=== PATIENT | female | born 1950 | race Caucasian/White ===

== ENCOUNTER 2019-07-18 09:44 | Outpatient (CLI) | payer OTHER, MEDICAID, SELFPAY ==
--- NOTE | 2019-07-18 | ECHO_ITS ---
Patient Info Name: Rosana Ritchie Age: 68 years : 1950 Gender: Female Ht: 59 in Wt: 140 lbs BSA: 1.65 m2 HR: 49 bpm BP: 148 / 54 mmHg Heart Rhythm: Sinus Rhythm Technical Quality: Good Exam Date: 07/18/2019 10:27 AM Exam Location: [facility] Patient Status: Outpatient Admit Date: 07/18/2019 Staff Ordering Physician: KatyaRyan MD Conservation Educator: Daisy Diallo RDCS Attending Provider: Katya, Ryan AVINA Exam Type: CA echo doppler color flow Study Info Indications - murmur Complete two-dimensional, color flow and Doppler transthoracic echocardiogram is performed. Summary 1. Left ventricular chamber dimension is normal. 2. Left ventricular systolic function is normal, estimated at 65-70%. 3. Left ventricular septal wall motion is normal. 4. The left ventricular diastolic function is grade I diastolic dysfunction. 5. There is mildly increased left ventricular wall thickness. 6. Left atrial chamber dimension is moderately enlarged. 7. There is mild aortic valve calcification. 8. There is mild to moderate aortic valve regurgitation. 9. There is mild mitral valve regurgitation. 10. There is mild tricuspid valve regurgitation. 11. Mild pulmonary hypertension, estimated pulmonary arterial systolic pressure is 37 mmHg. 12. There is mild pulmonic regurgitation. 13. 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 Left Ventricle Left ventricular chamber dimension is normal. Left ventricular systolic function is normal, estimated at 65-70%. There is mildly increased left ventricular wall thickness. Left ventricular septal wall motion is normal. The left ventricular diastolic function is grade I diastolic dysfunction. Right Ventricle Right ventricular chamber dimension is normal. Right ventricular systolic function is normal. Left Atria Left atrial chamber dimension is moderately enlarged. Right Atria Right atrial chamber dimension is mildly enlarged. Atrial Septum Patent foramen ovale visualized by color flow imaging. Aortic Valve The aortic valve is trileaflet. There is mild aortic valve sclerosis. There is no aortic valve stenosis. There is mild to moderate aortic valve regurgitation. There is mild aortic valve calcification. Pulmonic Valve The pulmonic valve is normal. There is no pulmonic valve stenosis. There is mild pulmonic regurgitation. Mitral Valve The mitral valve has thickened leaflets and calcified annulus. There is no mitral valve stenosis. There is mild mitral valve regurgitation. Tricuspid Valve The tricuspid valve leaflets are normal. There is no significant tricuspid valve stenosis. There is mild tricuspid valve regurgitation. Mild pulmonary hypertension, estimated pulmonary arterial systolic pressure is 37 mmHg. Other Findings Aneurysmal atrial septum with a bidirectional shunt noted consistent with PFO versus ASD. Pericardium/Pleural The pericardium appears normal. There is no pericardial effusion. Inferior Vena Cava Normal inferior vena cava with >50% collapse upon inspiration consistent with elevated right atrial pressure, 10 mmHg. Aorta The aortic root size at the sinus of Valsalva is normal. The prox ascending aorta size is normal. Left Ventricular Outflow Tract Name Value Normal
== END 2019-07-18 09:45 | disposition home or self-care (01) ==
PROVIDERS: Visit Provider Student in an Organized Health Care Education/Training Program
DX: I08.3 Combined rheumatic disorders of mitral, aortic and tricuspid valves (principal)
CPT/HCPCS: 93306

== ENCOUNTER → 2023-04-26 12:23 | Outpatient (CLI) | payer OTHER, MEDICAID, SELFPAY ==
--- NOTE | ~2023-04-26 | DEXA_ITS ---
Bone Density Report Name: ADILSON FRANK Age: 72 Sex: Female Ethnicity: White Date of : 1950 Indication: postmenopausal; screening for osteoporosis; Referring Provider: Katya, Ryan Study: Bone densitometry was performed. Exam Date: April 26, 2023 Accession number: [id number] Bone Density: Region BMD T-score Z-score Classification AP Spine (L1, L2) 1.104 1.1 3.4 Normal Femoral Neck (Left) 0.661 -1.7 0.4 Osteopenia Total Hip (Left) 0.763 -1.5 0.3 Osteopenia Femoral Neck (Right) 0.672 -1.6 0.5 Osteopenia Total Hip (Right) 0.805 -1.1 0.6 Osteopenia Total Hip Mean 0.784 -1.3 0.5 Osteopenia World Health Organization criteria for BMD impression classify patients as: Normal (T-score at or above -1.0), Osteopenia (T-score between -1.0 and -2.5), or Osteoporosis (T-score at or below -2.5). 10-year Fracture Risk(1): Major Osteoporotic Fracture 11% Hip Fracture 2.1% Reported Risk Factors: [place] (), Neck BMD=0.661, BMI=34.4 (1) FRAX(R) Version 3.08. Fracture probability calculated for an untreated patient. Fracture probability may be lower if the patient has received treatment. Clinical Information Provided by Patient: Menopause Age: 48 Does not regularly consume dairy products Onset of menses at age 13 Number of children 0 Impression: The patient has low bone mass, based on the Left Femoral Neck T-score. The patient has an estimated ten-year risk of hip fracture of 2.1% and an estimated ten-year risk of major fracture of 11%, based on the WHO FRAX algorithm. Discussion: BONE DENSITY IS LOW AT ONE OR MORE SKELETAL SITES. This patient's lowest T-score is low at one or more skeletal sites. It meets the World Health Organization's (WHO) criteria for ?low bone mass? (T-score between -1.0 and -2.5). The patient's 10-year risk of fracture as calculated by FRAX is less than the threshold where pharmacological therapy is recommended by the National Osteoporosis Foundation (NOF). However, all treatment decisions require clinical judgment and consideration of individual patient factors, including patient preferences, comorbidities, previous drug use, risk factors not captured in the FRAX model (e.g., frailty, falls, vitamin D deficiency, increased bone turnover, interval significant decline in bone density) and possible under or overestimation of fracture risk by FRAX. The patient should follow a healthful lifestyle (good nutrition with adequate calcium and vitamin D, and appropriate weight-bearing exercise). Follow-Up: Consider repeating this study in 2 to 3 years to reassess this patient's status, or sooner if there is some new clinical indication. Reported by: CIRA on 04/26/2023 1:05:00 PM. Reviewed, dictated and finalized at
--- NOTE | ~2023-04-26 | MM_ITS ---
EXAMINATION: MM screening jannette BI w laurel HISTORY: Screening mammogram TECHNIQUE: Craniocaudal and mediolateral oblique 3-D tomosynthesis images were obtained and synthetic 2-D images were generated. CAD analysis was submitted and interpreted. COMPARISON: No prior mammogram is available for comparison at this institution. BREAST PARENCHYMAL COMPOSITION: There are scattered areas of fibroglandular density. FINDINGS: There is no evidence of suspicious mass, calcification, or architectural distortion to sugg est malignancy in either breast. IMPRESSION: 1. No mammographic evidence of malignancy. 2. Recommend routine screening mammography in one year. 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
== END ==
PROVIDERS: PCP Student in an Organized Health Care Education/Training Program; Visit Provider Student in an Organized Health Care Education/Training Program
DX: Z12.31 Encounter for screening mammogram for malignant neoplasm of breast (principal); Z78.0 Asymptomatic menopausal state; M85.852 Other specified disorders of bone density and structure, left thigh; M85.851 Other specified disorders of bone density and structure, right thigh
CPT/HCPCS: 77063; 77067; 77080

== ENCOUNTER 2024-08-13 10:40 | Emergency (ER) | payer OTHER, MEDICAID, SELFPAY ==
--- NOTE | ~2024-08-13 | CT_ITS ---
CT head without contrast Indication: Status post fall Technique: Serial scans were obtained through the brain without the administration of contrast. Dose reduction technique was used on this scan by utilizing automated exposure control and iterative recon struction technique. The dose-length product (DLP) was 605.33 mGy-cm. Findings: There is no evidence of intracranial hemorrhage, mass lesion, or acute infarct. The ventri cles and subarachnoid spaces are dilated, consistent with mild to moderate atrophy. Low attenuation regions are seen within the periventricular white matter bilaterally, likely representing changes fro m chronic microvascular ischemic disease. There is no evidence of edema, mass effect or midline shif t. The visualized paranasal sinuses and mastoid air cells are clear. Impression: No intracranial hemorrhage, mass, or acute infarct. Atrophy and chronic white matter changes, as above. Reviewed, dictated and finalized at location M. Impression: No intracranial hemorrhage, mass, or acute infarct. Atrophy and chronic white matter changes, as above.
--- NOTE | ~2024-08-13 | CT_ITS ---
Noncontrast CT scan of the cervical spine Technique: Multiple contiguous axial [address] images of the cervical spine were obtained and rec onstructed in 2D sagittal and coronal planes on the acquisition scanner. Dose reduction technique was used on this scan by utilizing automated exposure control, adjustment of the mA and/or kV according to patient size. The dose-length product (DLP) was 272.84 mGy-cm. Clinical History: Pain Findings: No fracture identified. 3 mm anterolisthesis of C3 over C4 present. 5 mm anterolisthesis of C4 over C5 present. There is advanced degenerative disc narrowing at C4-C5, C5-C6, and C6-C7. There is moderate degenerative change at C3-C4. There is fusion across the bilateral facet joints at C2-C3. There is severe right neural foraminal narrowing at C3-C4 with severe right facet arthropathy. There is mild right neural foraminal narrowing at C4-C5, right facet arthropathy. There is mild bilateral neural foraminal narrowing at C5-C6 and C6-C7. There is mild to moderate canal stenosis at C5-C6 and C6-C7. No prevertebral soft tissue swelling. Impression: No fracture. 3 mm anterolisthesis of C3 over C4. 5 mm anterolisthesis of C4-C5. Moderate to advanced degenerative spondylosis, as above. Reviewed, dictated and finalized at [facility]. Impression: No fracture. 3 mm anterolisthesis of C3 over C4. 5 mm anterolisthesis of C4-C5. Moderate to advanced degenerative spondylosis, as above.
[2024-08-13 11:11] VITALS: BP 149/62; PULSE 55; RESP 16; TEMP 36.6; O2SAT 100
--- OUTSIDE RECORDS SUMMARY | 2024-08-13 11:58 | XMS_ITS | CONTINUITY OF CARE DOCUMENT ---
Author Name oscar moore Address Unknown Organization [facility] Address [address] [place] [address] Phone [phone] Care Team Providers Care Building Cleaning Supervisor Name Role Phone Martin Head MD Unavailable [phone] Martin Head MD Unavailable [phone] INSURANCE PROVIDERS Payer name Policy type / Coverage type [place] [employer] party ID [employer] Other [id number]
--- OUTSIDE RECORDS SUMMARY | 2024-08-13 11:58 | XMS_ITS | Encounter Summary ---
Author Organization [facility] Address [facility] [place] [address] Care Team Providers Care Debeaker Name Role Phone Ryan Aldana DO Primary Care Provider + Tati Mathews RN Unavailable [phone] Encounter Details Date Type Department Care Team (Late Contact Info) Description 05/03/2023 GENERAL MEDICAL MERATEt Message Enc [facility] Family & Internal Medicine [facility] [address] [place] [address] Ryan Aldana DO [address] [place] [address] DEXA Results Social History Tobacco Use Types Packs/Day Years Used Date Smoking Tobacco: Never Passive Smoke Exposure: Never Smokeless Tobacco: Never Comments:na Alcohol Use Standard Drinks/Week Comments Never 0 (1 standard drink = 0.6 oz pur e alcohol) AUDIT-C Answer Date Recorded Frequency of Alcohol Consumption Never 05/31/2019 Average Number of Drinks Not on file 020 Frequency of Binge Drinking Not on file 05/04 PHQ-2 Answer Date Recorded Patient Health Questionnaire-2 Score 0 09/02/2022 Comments No Sex and Gender Information Value Date Recorded Sex Assigned at Female 11/21/2023 7:23 AM CDT Legal Sex Female 12:45 PM DUCO POLISHER Gender Identity Female 11/21/2023 7:23 AM CDT Sexual Orientation Straight 11/21/2023 7: 23 AM CDT documented as of this encounter Plan of Treatment Upcoming Encounters Date Type Department Care Team (Late st Contact Info) Description 09/21/2024 10:20 AM CDT Laboratory Only [facility] Family & Internal [facility] [address] [place] [address] Ryan Aldana DO [address] [place] [address] 09/27/2024 9:00 AM CDT Office Visit [facility] Family & Internal [facility] [address] [place] [address] Ryan Aldana, [address] [place] [address] documented as of this encounter Visit Diagnoses Not on filedocumented in this encounter Additional Health Concerns Infection Onset Date Last Indicated Resolved Time COVID-19 Rule Out 06/13/2024 06/13/2024 06/13/2024 9:10 PM DUCO POLISHER COVID-19 Rule Out 06/16/2024 06/16/2024 06/16/2024 9:49 PM DUCO POLISHER Assessment Noted Time PHQ-9 Depression Total Score: 0 05/31/19 11:03 AM DUCO POLISHER documented as of this encounter Care Teams Debeaker Relationship Specialty Start Date End Date Ryan Aldana DO [address] [place] [address] PCP - General FAMILY PRACTICE 05/31/19 Tati Mathews, RN [address] [place] [address] Neurosurgery Physician (Ambulatory) REGISTERED NURSE 06/15/2402/23 documented as of this encounter
--- OUTSIDE RECORDS SUMMARY | 2024-08-13 11:58 | XMS_ITS | Encounter Summary ---
Author Organization [facility] Address [facility] [place] [address] Care Team Providers Care Water Resource Manager Name Role Phone Ryan Aldana DO Primary Care Provider + Tati Mathews RN Unavailable [phone] Encounter Details Date Type Department Care Team (Late Contact Info) Description 04/28/2023 Men Rockt Message Enc [facility] Family & Internal Medicine [facility] [address] [place] [address] Ryan Aldana DO [address] [place] [address] Mammogram Results Social History Tobacco Use Types Packs/Day [...] AM CDT Legal Sex Female 12:45 PM MANGLE CATCHER Gender Identity Female 11/21/2023 7:23 AM CDT Sexual Orientation Straight 11/21/2023 7: 23 AM CDT documented as of this encounter Plan of Treatment Upcoming Encounters Date Type Department Care Team (Late st Contact Info) Description 09/21/2024 10:20 AM CDT Laboratory Only [facility] Family & Internal [facility] [address] [place] [address] Ryan Aldana DO [address] [place] [address] 09/27/2024 9:00 AM CDT Office Visit [facility] Family & Internal [facility] [address] [place] [address] Ryan Aldana, [address] [place] [address] documented as of this encounter Visit Diagnoses Not on filedocumented in this encounter Additional Health Concerns Infection Onset Date Last Indicated Resolved Time COVID-19 Rule Out 06/13/2024 06/13/2024 06/13/2024 9:10 PM MANGLE CATCHER COVID-19 Rule Out 06/16/2024 06/16/2024 06/16/2024 9:49 PM MANGLE CATCHER Assessment Noted Time PHQ-9 Depression Total Score: 0 05/31/19 11:03 AM MANGLE CATCHER documented as of this encounter Care Teams Water Resource Manager Relationship Specialty Start Date End Date yRan Aldana DO [address] [place] [address] PCP - General FAMILY PRACTICE 05/31/19 Tati Mathews, RN [address] [place] [address] Recapper (Ambulatory) REGISTERED NURSE 06/15/2402/23 documented as of this encounter
--- OUTSIDE RECORDS SUMMARY | 2024-08-13 11:58 | XMS_ITS | Data Portability ---
Author Organization [facility] [employer], Main Office Address [address] [place] [address] Care Team Providers Care Commission Associate Name Role Phone NATALIA GONZALES Primary Care Provider Assessment Encounter Date Assessment Date Assessment LastModified by Organization Details LastModified Time 12/08/2023 12/08/2023 This note is dictated and transcribed by [employer]. Cardiovascular Surgical Tech variances may occur. Despite proofreading, typographical errors may occur. Occasional wrong-word or '[id number]' substitutions may have occurred due to the inherent limitations of voice recording. Read the chart carefully and recognize, using context, where substitutions have occurred. [email or web address] Not available 12/08/2023 11:27:57 Plan of Treatment Reminders Order Date Submit Date Provider Last Modified By Organization Details Last Modified Time Details Appointments None record ed. Lab None record ed. Referral None record ed. Procedures None record ed. Surgeries None record ed. Imaging None record ed. Medication Orders None record ed. Patient TargetsNo targets recorded. Patient InstructionsNo instructions recorded. Reason for Referral None Reported. Problems Name Problem SNOMED Code Status Onset Date Resolution Date Notes Provider Name and Address Organization Details Recorded Time Benign essentia l hyperten leeanne 1372795 Active Not Available [employer] 3 12:46:49 Wrist joint pain 400312433 Active Not Available [employer] 3 12:46:49 Intellec tual function ing disabili ty 040833440 Active Not Available [employer] 3 12:46:49 Osteoart hritis of knee 193123754 Active Not Available [employer] 3 12:46:49 Abnormal weight loss 812857152 Completed Not Available [employer] 3 12:46:50 Anemia 702164308 Active Not Available [employer] 3 12:46:50 Low back pain 440254361 Completed 201612/21/2017 Not Available On license of [facility] 3 12:46:50 Knee pain Active Not Available On license of [facility] 3 12:46:50 Vitamin D deficien cy 41208429 Active Not Available [facility] 3 12:46:50 Depressi ve disorder 94847614 Active Not Available On license of [facility] 3 12:46:50 Osteoart hritis 066058583 Active Not Available On license of [facility] 3 12:46:50 Obesity 858706000 Active Not Available On license of [facility] 3 12:46:50 Unexplai john weight loss 557961688 Completed 201612/21/2017 Not Available On license of [facility] 3 12:46:50 Amnesia 99260658 Active Not Available On license of [facility] 3 12:46:50 Anxiety 51418106 Active Not Available On license of [facility] 3 12:46:50 Vitamin K deficien cy 37188990 Active Not Available On license of [facility] 3 12:46:50 Hyperlip idemia 14638828 Active 2017 Not Available On license of [facility] 3 12:46:50 Diabetes mellitus 72477121 Active diet controll ed Not Available [facility] 3 12:46:51 Arthriti s 0774776 Active 2023 Clarisse [place], [place] [employer] [facility] [employer] 4 11:08:28 Onychomy cosis of toenails 228250220 Active 2023 Gerry Pryor DPM [address], [address], [place], [address] , [employer] 4 11:28:05 Unable to cut own toenails 693206958 Active 2023 Gerry Pryor DPM [address], [address], [place], [address] , [employer] 4 11:28:57 Problem Notes None recorded. Procedures Surgical History Date Name Laterality Status Provider Name and Address Organization Details Recorded Time 12/08/19 Nail Debridement completed Gerry Pryor DPM [address], [address], [place], [address], [facility] [employer] 12/08/2023 11:26:39 Cholecystectomy completed Debra Mark MA [facility] [employer] [facility] 12/07/2023 16:08:40 Tonsillectomy completed Debra Mark MA [facility] [employer] 12/07/2023 16:08:53 Total knee arthroplasty completed Debra Mark MA [facility] [employer] [facility] 12/07/2023 16:09:32 Imaging Results None recorded. Procedure Notes None recorded. Medical Equipment None Reported. Allergies No known drug allergies Medications Name Sig Start Date Stop Date Status Note LastModified by Organization Details LastModified Time celecoxib 200 mg capsule 08/19 completed Not Available Not Available Not Available bupropion HCl SR 150 mg tablet,12 hr sustained-r elease active Not Available Not Available Not Available naproxen 375 mg tablet TAKE 1 TABLET BY MOUTH TWICE A DAY WITH FOOD active Not Available Not Available No t Available donepezil 5 mg tablet TAKE 1 TABLET BY MOUTH EVERYDAY AT BEDTIME active Not Available Not Available No t Available oxybutynin chloride ER 10 mg tablet,exte nded release 24 hr TAKE 1 TABLET BY MOUTH EVERY DAY 03/02 completed Not Available Not Available Not Available azithromyci n 250 mg tablet active Not Available Not Available Not Available lisinopril 20 mg tablet Take 1 tablet every day by oral route for 30 days. 04/05 completed Not Available Not Available Not Available sertraline 100 mg tablet TAKE ONE TABLET BY MOUTH ONE TIME DAILY 03/02 completed Not Available Not Available Not Available penicillin V potassium 500 mg tablet 12/21 completed Not Available Not Available Not Available tramadol 50 mg tablet active Not Available Not Available No t Available amoxicillin 500 mg tablet Take 1 tablet 3 times a day by oral route for 7 days. 10/25 completed Not Available Not Available Not Available oxycodone-a cetaminophe n 5 mg-325 mg tablet 06/01 completed Not Available Not Available Not Available pantoprazol e 40 mg tablet,maida yed release TAKE 1 TABLET BY MOUTH EVERY DAY active Not Available Not Available No t Available lisinopril 20 mg-hydrochl orothiazide 25 mg tablet Take 1 tablet every day by oral route. 08/23 completed Not Available Not Available Not Available diclofenac sodium 75 mg tablet,maida yed release TAKE ONE TABLET BY MOUTH EVERY TWELVE HOURS 03/02 completed Not Available Not Available Not Available lisinopril 10 mg-hydrochl orothiazide 12.5 mg tablet TAKE 1 TABLET BY MOUTH EVERY DAY active Not Available Not Available No t Available Vitamin D2 1,250 mcg (50,000 unit) capsule Take 1 capsule every week by oral route for 90 days. 09/27 completed Not Available Not Available Not Available escitalopra m 20 mg tablet TAKE 1 TABLET BY MOUTH EVERY DAY active Not Available Not Available No t Available moxifloxaci n 0.5 % eye drops 08/23 completed Not Available Not Available Not Available rosuvastati n 20 mg tablet TAKE 1 TABLET BY MOUTH EVERY DAY active Not Available Not Available No t Available Crestor 10 mg tablet TAKE ONE TABLET BY MOUTH DAILY active Not Available Not Available No t Available bupropion HCl XL 150 mg 24 hr tablet, extended release TAKE ONE TABLET BY MOUTH ONE TIME DAILY 03/02 completed Not Available Not Available Not Available Lipitor active Not Available Not Avail able Not Available aripiprazol e 2 mg tablet active Not Available Not Available Not Available Durezol 0.05 % eye drops 08/23 completed Not Available Not Available Not Available GaviLyte-N 420 gram oral solution active Not Available Not Available Not Available Myrbetriq 25 mg tablet,exte nded release active Not Available Not Available Not Available Ilevro 0.3 % eye drops,suspe nsion 08/23 completed Not Available Not Available Not Available Shingrix (PF) 50 mcg/0.5 mL intramuscul ar suspension, kit 12/21 completed Not Available Not Available Not Available Vitals Date Recorded Body height Body mass index (BMI) Provider Name and Address Organization Details Last Updated DateTime 12/08/2023 144.78 cm 35.3 kg/m2 Clarisse [facility] 12/08/2023 11:07:43 Date Recorded Body weight Heart rate Respiratory rate Body temperature Oxygen saturation Oxygen saturation in Arterial blood by Pulse oximetry Provider Name and Address Organization Details Last Updated DateTime 4 71424.5 6 g 76 /min 14 /min 98.6 [degF] 98 % 98 % Debra Mark MA [employer] [facility] [employer] 11:04:36 Social History Question Answer Notes LastModified by Organizat ion Details LastModified Time Tobacco Smoking Status Never Smoker Debra Mark MA null, [facility] [employer] 12/07/2023 16:13:06 What Is Your Level Of Alcohol Consumption? None [place] [address] Information not available 12/07/2023 What Is Your Level Of Caffeine Consumption? Occasional [employer] Information not available 12/07/2023 Are You Currently Employed? No [place] [address] Information not available 12/07/2023 What Is Your Occupation? N/a [id number] Information not available 06/30/2022 Are There Any Guns Present In Your Home? No [employer] Information not available 12/07/2023 What Is Your Relationship Status? [employer] Information not available 12/07/2023 Do You Use Your Seat Belt Or Car Seat Routinely? Yes [employer] Information not available 12/08/2023 Are You Passively Exposed To Smoke? No [place] [address] Information no t available 12/07/2023 Do You Use Any Illicit Or Recreational Drugs? No [employer] Information not available 12/07/2023 Do You Use Sunscreen Routinely? No [employer] Information not available 12/07/2023 Sex: Unknown Functional Status None recorded. Mental Status None recorded. Family History Relationship Description Onset Age of this Age Resolved Age Notes LastModified by Organization Details LastModified Time Mother Alzheimer's disease [email or web address] Not available 2023 16:09:45 Father Alzheimer's disease [email or web address] Not available 2023 16:09:55 Father Heart disease [email or web address] Not available 2023 16:11:21 Maternal Grandmother Alzheimer's disease [email or web address] Not available 2023 16:10:06 Paternal Grandfather Heart disease [email or web address] Not available 2023 16:11:21 Brother Malignant tumor of prostate [email or web address] Not available 2023 16:12:12 Brother Diabetes mellitus [email or web address] Not available 2023 11:09:00 Sister Diabetes mellitus [email or web address] Not available 2023 11:09:00 Sister Hypertensive disorder [email or web address] Not available 2023 11:09:46 Sister Family history of malignant neoplasm [email or web address] Not available 2023 11:09:56 Unspecified Relation Cerebrovascu lar accident NEPHEW [email or web address] Not available 12/2023 11:09:17 Unspecified Relation Arthritis ALL [email or web address] Not available 024 11:09:31 Medical History Condition Response ARTHRITIS Y ANXIETY DISORDER Y DEPRESSION (INCLUDING POST ) Y HYPERTENSION Y HIGH CHOLESTEROL / HYPERLIPIDEMIA Y Gynecological HistoryNo gynecological history recorded. Obstetrics History GPAL:G 0 P 0 0 0 0 Immunizations Vaccine Type Date Status Note Provider Nam e and Address Organization Details Recorded Time Influenza, high-dose, trivalent, PF 1 completed Not Available On license of [facility] 06/30/2022 12:49:41 Influenza, high-dose, trivalent, PF 0 completed Not Available [facility] 06/30/2022 12:49:41 pneumococcal polysaccharide PPV23 9 completed Not Available [facility] 06/30/2022 12:49:41 zoster live 8 completed Not Available [facility] 06/30/2022 12:49:41 Influenza, high-dose, trivalent, PF 9 completed Not Available [facility] 06/30/2022 12:49:41 Td (adult) 5 completed Not Available [facility] 06/30/2022 12:49:42 Pneumococcal conjugate PCV 13 7 completed Not Available [facility] 06/30/2022 12:49:42 Influenza, high-dose, trivalent, PF 7 completed Not Available [facility] 06/30/2022 12:49:42 Influenza, high-dose, trivalent, PF 6 completed Not Available [facility] 06/30/2022 12:49:42 Influenza, split virus, trivalent, PF 4 completed Not Available [facility] 06/30/2022 12:49:42 Past Encounters Encounter ID Performer Location Encounter Start Date Encounter Closed Date Diagnosis/Indication Diagnosis SNOMED-CT Code Diagnosis ICD10 Code Diagnosis Note [id number] Gerry Pryor DPM [facility] [place] [address] [place] [address] 12/08/2023 10:42:50 12/09/2023 09:13:20 Diabetes mellitus 20911261 E11.9 continue diabetic control per PCP recommenda tionsConti nue supportive shoe gearMonito r feet daily for wounds infectionF ollow-up in 3 months for diabetic foot care Onychomyco sis of toenails 468977640 B35.1 Patient was educated on treatment options of onychomyco sis. Patient's nails 1 through 10 were debrided without incident. Patient defers pharmacolo gical management due to possible side effects and will continue with conservati ve options. Return to clinic as needed every 3 months for this problem. Unable to cut own toenails 549988776 Z74.1 secondary to intellectu al disability Health Concerns Section Related Observation LastModified by Organization Detai ls LastModified Time None Recorded Concern Status LastModified by Organization Details LastModified Time None Recorded Advance Directives Directive None Recorded Payers Encounter Date Sequence Insurance Name Policy Number Policy Ashton Covered Member ID Ashton Member ID Guarantor Name 12/08/2023 1 [place] WHEN MEDICARE OR MEDICARE REPLACEMENT PRIMARY) Rosana Ritchie [id number] Rosana Ritchie 12/08/2023 1 [facility] (MEDICARE REPLACEMENT/AD VANTAGE - HMO) [id number] Rosana Ritchie [id number] Rosana Ritchie Notes Date Note Type Note Provider Name and Address Organization Details Recorded Time 12/08/2023 text/html Patient is 73-year-old female who presents to the office for diabetic foot care and nail care. Patient has intellectual disability to which she is cared for by her sister and presents today with her sister. Patient sister states that she has developed thickened elongated dystrophic toenails which she is unable to care for. Patient denies any treatment for this condition. Patient denies any other complaints. Gerry Pryor DPM [address], [facility] [address], [place], [address], [facility] [employer] 12/08/2023 11:29:40 OBGyn Episode No OBEpisode recorded.
--- OUTSIDE RECORDS SUMMARY | 2024-08-13 11:58 | XMS_ITS | Encounter Summary ---
Author Organization [facility] Address [facility] [place] [address] Care Team Providers Care Customer Service Attendant Name Role Phone Ryan Aldana DO Primary Care Provider + Reason for Visit * Reason Onset Date Comments Information 08/13/2024 Encounter Details Date Type Department Care Team (Late st Contact Info) Description 08/13/2024 Telephone [facility] Family & Internal Medicine [facility] [address] [place] [address] Ryan Aldana DO [address] [place] [address] Information Social History Tobacco Use Types Packs/Day Years Used Date Smoking Tobacco: Never Passive Smoke Exposure: Never Smokeless Tobacco: Never Comments:na Alcohol Use Standard Drinks/Week Comments Never 0 (1 standard drink = 0.6 oz pur e alcohol) [facility] Utilities Answer Date Recorded In the past 12 months has [facility] [employer], gas, oil, or water [employer] threatened to shut off services in your home? No 06/14/2024 Humiliation, Afraid, Rape, and Kick questionnair e Answer Date Recorded Within the last year, have y ou been afraid of your partner or ex-partner? No 06/14/2024 Within the last year, have y ou been humiliated or emotionally abused in other ways by your partner or ex-partner? No Within the last year, have y ou been kicked, hit, slapped, or otherwise physically hurt by your partner or ex-partner? No 06/14/2024 Within the last year, have y ou been raped or forced to have any kind of sexual activity by your partner or ex-partner? No 06/14/2024 AUDIT-C Answer Date Recorded Frequency of Alcohol Consumption Never 05/31/2019 Average Number of Drinks Not on file 020 Frequency of Binge Drinking Not on file 05/04 Overall Financial Resource Strain (CARDIA) Answe r Date Recorded How hard is it for you to pa y for the very basics like food, housing, medical care, and heating? Not very hard 06/14/2024 PHQ-2 Answer Date Recorded Patient Health Questionnaire-2 Score 0 06/20/2023 Hunger Vital Sign Answer Date Recorded Within the past 12 months, y ou worried that your food would run out before you got the money to buy more. Never true 06/14/19 25 Within the past 12 months, t he food you bought just didn't last and you didn't have money to get more. Never true 06/14/2024 PRAPARE - Transportation Answer Date Re corded In the past 12 months, has l ack of transportation kept you from medical appointments or from getting medications? No 06/02 In the past 12 months, has l ack of transportation kept you from meetings, work, or from getting things needed for daily living? No 06/14/2024 Housing Stability Vital Sign Answer Taras e Recorded In the last 12 months, was t here a time when you were not able to pay the mortgage or rent on time? No 06/14/2024 In the past 12 months, how m any times have you moved where you were living? 0 06/14/2024 At any time in the past 12 m [facility], were you homeless or living in a care home (including now)? 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 Answer Date of Assessment Author Status No 06/19/2024 5:32 PM Chaz Escalona RN Active * Do you have serious difficulty walking or climbing stairs? Answer Date of Assessment Author Status Yes 06/19/2024 5:32 PM Chaz Escalona RN Active * Do you have difficulty dressing or bathing? Answer Date of Assessment Author Status No 06/19/2024 5:32 PM Chaz Escalona RN Active * Because of a physical, mental, or emotional condition, do you have difficulty doing errands alone such as visiting a doctor's office or shopping? Answer Date of Assessment Author Status No 06/19/2024 5:32 PM Chaz Escalona RN Active documented as of this encounter Mental Status * Because of a physical, mental, or emotional condition, do you have serious difficulty concentrating, remembering, or making decisions? Answer Entry Date Author Status Yes 06/19/2024 5:32 PM Chaz Escalona RN Active documented in this encounter Progress Notes * Teresa Seaman - 08/13/2024 9:44 AM CDT Pts sister called in stating fell 08/12/24 needed assistance to get back up. States pt fell at work today and hit her head. Patient is going to pick her up from work and take her to [facility].Wanted to inform PCP pt is falling again. documented in this encounter Plan of Treatment Upcoming Encounters Date Type Department Care Team (Late st Contact Info) Description 09/21/2024 10:20 AM CDT Laboratory Only [facility] Family & Internal Medicine [place] [address] [place] [address] Ryan Aldana, [facility] [place] [address] 09/27/2024 9:00 AM CDT Office Visit [facility] Family & Internal Medicine - [place] [address] [place] [address] [place] [address] [place] [id number] documented as of this encounter Visit Diagnoses Not on filedocumented in this encounter Additional Health Concerns Assessment Noted Time PHQ-9 Depression Total Score: 0 05/31/19 20 11:03 AM BOTTLE MACHINE OPERATOR documented as of this encounter Care Teams Customer Service Attendant Relationship Specialty Start Date End Date Ryan Aldana DO [address] [place] [phone] PCP - General FAMILY PRACTICE 05/31/19 documented as of this encounter
--- OUTSIDE RECORDS SUMMARY | 2024-08-13 11:59 | XMS_ITS | Clinical Summary ---
Author Organization [facility] Address Critical access hospital[address] [place] [address] Care Team Providers Care Fire Hydrant Operator Name Role Phone ShilpagtmelissaRyan Leonardo CONNER Primary Care Provider + Allergies Active Allergy Reactions Criticality Noted Date Comments Olanzapine Other (see comment) High 06/28/2024 Encephalopathy Medications rosuvastatin (CRESTOR) 20 MG tabletIndications: Hyperlipidemia, unspecified hyperlipidemia type TAKE 1 TABLET BY MOUTH EVERY DAY 90 tablet 06/06/19 25 Active Additional Information Patient taking differently: 20 mg Oral Daily, Reported on 06/28/2024 pantoprazole EC (PROTONIX) 40 MG tabletIndications: Acute gastritis without hemorrhage, unspecified gastritis type TAKE 1 TABLET BY MOUTH EVERY DAY 90 tablet 06/06/19 25 Active Additional Information Patient taking differently: 40 mg Oral Daily, Reported on 06/28/2024 escitalopram (LEXAPRO) 20 MG tabletIndications: Current mild episode of major depressive disorder, unspecified whether recurrent TAKE 1 TABLET BY MOUTH EVERY DAY 90 tablet 06/06/19 25 Active lisinopril-hydroCH LOROthiazide (ZESTORETIC) 10-12.5 MG tablet Take 1 tablet by mouth daily. Active Active Problems Problem Noted Date Diagnosed Date Physical deconditioning 06/23/2024 Encephalopathy 06/13/2024 Stress incontinence of urine 11/23/2023 Dementia with mood disturban ce, unspecified dementia severity, unspecified dementia type 07/02/2022 Current mild episode of brannon r depressive disorder, unspecified whether recurrent 11/19/2021 Falls frequently 06/12/2021 Vitamin D deficiency, unspecified 06/12/2021 Dizziness 06/10/2019 Arthritis 06/10/2019 Essential hypertension 06/10/2019 Depression, unspecified depression type 06/10/19 20 Prediabetes 06/10/2019 Cardiac murmur Resolved Problems Problem Noted Date Diagnosed Date Resolved Date Low vitamin D level 06/12/2021 06/12/19 22 Encounters Date Type Department Care Team Description 08/13/2024 Telephone [facility] Family Internal [address] [address] Ryan Aldana, DO Information 07/09/2024 Patient Outreach [facility] Internal [address] [address] Tati Mathews, [facility] Hospital Follow Up (Tcm #1) 07/01/2024 9:00 AM CULINARY ART TEACHER Home Care Visit [address] [place], [place] [id number] Elza Hendricks RN SN NON ADMIT SOC 06/28/2024 10:40 AM CULINARY ART TEACHER Office Visit [facility] & Internal [address] [address] Ryan Aldana, DO TCM ([facility] & [facility] rehab 06/19-06/26 ; physical deconditioning) 06/28/2024 Travel 06/27/2024 Scan [employer] INFO SRVCS Scanned, Doc [facility] 06/27/2024 Patient Outreach [facility] Internal [address] [address] Tati Mathews, RN TCM ([facility] 06/13-06/19, h swing bed 06/19-06/26/2024) 06/27/[address] [address] Ryan Aldana, DO Advice 06/26/[address] [place], [place] [phone] Ryan Aldana, DO Advise 06/26/2024 Telephone [facility] Home Care [address] [place] [address] [place] [address] Ryan Aldana, DO Advise 06/26/2024 Telephone [facility] & Internal [address] [place] [address] Ryan Aldana, DO Information 06/22/2024 Scan [employer] INFO SRVCS Scanned, [facility] 06/19/2024 5:19 PM CULINARY ART TEACHER - 06/26/2024 1:30 PM CULINARY ART TEACHER Hospital Encounter [facility] Med/Surg [id number] [place] [address] Silvina Ortiz MD Harris, Michael, MD Discharge Disposition: Home with Home Health Care 06/19/2024 Travel 06/19/2024 Telephone [facility] [address] [place] [address] Teresa Orozco, public safety teacher (Swing bed referral to [facility] from [facility]/) 06/18/2024 Telephone [facility] Family Internal [address] [place] [address] Ryan Aldana, DO Information 06/15/2024 Telephone [facility] Internal [address] [place] [address] Ryan Aldana, DO Information 06/15/2024 Patient Outreach [facility] & Internal [address] [place] [address] Tati Mathews, [facility]CIO Hospital Follow Up 06/13/2024 11:48 AM CULINARY ART TEACHER - 06/19/2024 3:57 PM CULINARY ART TEACHER Hospital Encounter [facility] [place] [address] Anand Monzon MD D'Souza, Dominique C, MD Spencer, Vincent J, MD Altered Mental Status Discharge Disposition: Swing Bed 06/13/2024 Scan [facility] INFO SRVCS Scanned, [facility] 06/13/2024 Travel 06/13/2024 Telephone [facility] & Internal Medicine [address] [address] Ryan Aldana, Advice 06/04/2024 9:40 AM CULINARY ART TEACHER Office Visit [facility] Internal [address] [address] Ryan Aldana, Hyperlipidemia; Depression 06/04/2024 Travel from Last 3 Months Immunizations Immunization Administration Dates Next Due Fluzone High Dose (IIV, triv alent, 0.5mL) 06/04/2024 Fluzone High Dose - >Age 65 (Prefilled Syringe) 02/25/2023,04/07/2020,04/05/2017,2015,04/15/2011,03/16/2010,01/16/2009 PFIZER COVID-19 (CRAMER CAP), MRNA, LNP-S, PF, 30 MCG/0.3 ML CLAIR-SUCROSE, IM 08/02/2021 Pneumococcal (Pneumovax 23) 04/07/2020 Pneumococcal (Prevnar 13) 04/05/2017 Shingrix 09/22/2017,06/25/2017 Td (Generic) 12/29/2004 Tdap (Generic) 05/23/2018 Zoster (Zostavax) [address] Unt/0.65Ml 09/26/2017 Family History Medical History Relation Comments Cancer Brother 3 remission Alzheimers Father Heart Attack Father Heart Disease Father Alzheimers Maternal Grandfather Alzheimers Mother Heart Attack Mother Heart Disease Paternal Grandfather Diabetes Sister 2 Heart Disease Sister 2 Depression Neg Hx Hypertension Neg Hx Relation Status Comments Brother 1 Alive Brother 2 Alive Brother 3 Alive Brother 4 Alive Father (Age 72) Maternal Grandfather Mother Paternal Grandfather Sister 1 Alive Sister 2 Alive Social History Tobacco Use Types Packs/Day Years Used Date Smoking Tobacco: Never Passive Smoke Exposure: Never Smokeless Tobacco: Never Tobacco Cessation:Counseling Given: No Comments:na Alcohol Use Standard Drinks/Week Comments Never 0 (1 standard drink = 0.6 oz pur e alcohol) [facility] Utilities Answer Date Recorded In the past 12 months has th e electric, gas, oil, or water company threatened to shut off services in your [...] any time in the past 12 m [facility], were you homeless or living in a long-term (including now)? No 06/14/2024 Comments No Sex and Gender Information Value Date Recorded Sex Assigned at Female 11/21/2023 7:23 AM CDT Legal Sex Female 12:45 PM CULINARY ART TEACHER Gender Identity Female 11/21/2023 7:23 AM CDT Sexual Orientation Straight 11/21/2023 7: 23 AM CDT Last Filed Vital Signs Vital Sign Reading Time Taken Comments Blood Pressure 134/62 06/28/2024 11:12 AM CULINARY ART TEACHER Pulse 46 06/28/2024 11:12 AM CULINARY ART TEACHER Temperature 36.8 C (98.2 F) 06/28/2024 11:12 AM CULINARY ART TEACHER Respiratory Rate 16 06/28/2024 11:12 AM CULINARY ART TEACHER Oxygen Saturation 99% 06/28/2024 11:12 AM CULINARY ART TEACHER Inhaled Oxygen Concentration - - Weight 64.7 kg (142 lb 9.6 oz) 06/28/2024 11:12 AM CULINARY ART TEACHER Height 147.3 cm (4' 10 ) 06/28/2024 11:12 AM CULINARY ART TEACHER Body Mass Index 29.8 06/28/2024 11:12 AM CULINARY ART TEACHER Plan of Treatment Upcoming Encounters Date Type Department Care Team (Late st Contact Info) Description 09/21/2024 10:20 AM CDT Laboratory Only [facility] Family & Internal Medicine [address] [phone] Ryan Aldana DO [address] [place] [address] 09/27/2024 9:00 AM CDT Office Visit [facility] Family & Internal Medicine [address] [address] Ryan Aldana DO [address] [place] [address] Health Maintenance Due Date Last Done Comments Annual Medicare Wellness Visit 2013 RSV Immunization or 60+ Years (1 - 1-dose 75+ series) 11/09/2023 PHQ-2 (Physician [place]) 05/02/2024 06/20/2023 Dexa Scan (General) 04/26/2025 04/26/2023, 09/30/2020 Colorectal Cancer Screening FIT-DNA (3 Years) 01/23/2026 01/23/2023, 01/23/2023, 08/09/2019 DTaP, Tdap and Td Vaccines ( 2 - Td or Tdap) 05/31/2028 05/23/2018, 12/29/2004 Postponed from 05/23/2028 (Per Provider Recommendation) COVID-19 Vaccine (2 - 2023-2 5 season) 2112 08/02/2021 Postponed from 12/31 (Going to Outside Clinic) Zoster Vaccines Completed 09/26/2017, 09/22/2017, 06/25/2017 Pneumococcal Vaccine: 50+ Years Completed 04/07/2020, 04/05/2017 Hepatitis C Completed 07/02/2022 Meningococcal B Vaccine Aged Out No l onger eligible based on patient's age to complete this topic Meningococcal Vaccine Aged Out No thomas brandee eligible based on patient's age to complete this topic RSV Immunizations Under 20 Months Aged Out No longer eligible b ased on patient's age to complete this topic Procedures Procedure Name Priority Date/Time Associated Diagnosis Comments POCT GLUCOSE - KILPATRICK DOCKED DEVICE Routine 06/26/2024 11:16 AM CULINARY ART TEACHER POCT GLUCOSE - KILPATRICK DOCKED DEVICE Routine 06/26/2024 7:29 AM CULINARY ART TEACHER POCT GLUCOSE - KILPATRICK DOCKED DEVICE Routine 06/25/2024 8:10 PM CULINARY ART TEACHER POCT GLUCOSE - KILPATRICK DOCKED DEVICE Routine 06/25/2024 4:45 PM CULINARY ART TEACHER POCT GLUCOSE - KILPATRICK DOCKED DEVICE Routine 06/25/2024 11:23 AM CULINARY ART TEACHER POCT GLUCOSE - KILPATRICK DOCKED DEVICE Routine 06/25/2024 7:35 AM CULINARY ART TEACHER POCT GLUCOSE - KILPATRICK DOCKED DEVICE Routine 06/24/2024 7:53 PM CULINARY ART TEACHER POCT GLUCOSE - KILPATRICK DOCKED DEVICE Routine 06/24/2024 4:55 PM CULINARY ART TEACHER POCT GLUCOSE - KILPATRICK DOCKED DEVICE Routine 06/24/2024 11:40 AM CULINARY ART TEACHER POCT GLUCOSE - KILPATRICK DOCKED DEVICE Routine 06/24/2024 7:01 AM CULINARY ART TEACHER POCT GLUCOSE - KILPATRICK DOCKED DEVICE Routine 06/23/2024 8:54 PM CULINARY ART TEACHER POCT GLUCOSE - KILPATRICK DOCKED DEVICE Routine 06/23/2024 4:34 PM CULINARY ART TEACHER POCT GLUCOSE - KILPATRICK DOCKED DEVICE Routine 06/23/2024 11:35 AM CULINARY ART TEACHER POCT GLUCOSE - KILPATRICK DOCKED DEVICE Routine 06/23/2024 8:06 AM CULINARY ART TEACHER POCT GLUCOSE - KILPATRICK DOCKED DEVICE Routine 06/22/2024 4:45 PM CULINARY ART TEACHER POCT GLUCOSE - KILPATRICK DOCKED DEVICE Routine 06/22/2024 11:24 AM CULINARY ART TEACHER POCT GLUCOSE - KILPATRICK DOCKED DEVICE Routine 06/22/2024 7:32 AM CULINARY ART TEACHER POCT GLUCOSE - KILPATRICK DOCKED DEVICE Routine 06/21/2024 4:16 PM CULINARY ART TEACHER POCT GLUCOSE - KILPATRICK DOCKED DEVICE Routine 06/21/2024 11:36 AM CULINARY ART TEACHER POCT GLUCOSE - KILPATRICK DOCKED DEVICE Routine 06/21/2024 7:52 AM CULINARY ART TEACHER COMPREHENSIVE METABOLIC PANEL Routine 06/21/2024 5:31 AM CULINARY ART TEACHER CBC W/DIFF AUTOMATED Routine 06/21/2024 5:31 AM CULINARY ART TEACHER POCT GLUCOSE - KILPATRICK DOCKED DEVICE Routine 06/20/2024 11:32 AM CULINARY ART TEACHER POCT GLUCOSE - KILPATRICK DOCKED DEVICE Routine 06/20/2024 7:16 AM CULINARY ART TEACHER COMPREHENSIVE METABOLIC PANEL Routine 06/20/2024 6:12 AM CULINARY ART TEACHER CBC W/DIFF AUTOMATED Routine 06/20/2024 6:12 AM CULINARY ART TEACHER POCT GLUCOSE - KILPATRICK DOCKED DEVICE Routine 06/19/2024 7:48 PM CULINARY ART TEACHER POCT GLUCOSE - KILPATRICK DOCKED DEVICE Routine 06/19/2024 5:29 PM CULINARY ART TEACHER POCT GLUCOSE - KILPATRICK DOCKED DEVICE Routine 06/19/2024 11:22 AM CULINARY ART TEACHER COMPREHENSIVE METABOLIC PANEL Routine 06/19/2024 7:11 AM CULINARY ART TEACHER CBC W/DIFF AUTOMATED Routine 06/19/2024 7:11 AM CULINARY ART TEACHER POCT GLUCOSE - KILPATRICK DOCKED DEVICE Routine 06/19/2024 5:34 AM CULINARY ART TEACHER POCT GLUCOSE - KILPATRICK DOCKED DEVICE Routine 06/18/2024 3:19 PM CULINARY ART TEACHER POCT GLUCOSE - KILPATRICK DOCKED DEVICE Routine 06/18/2024 11:06 AM CULINARY ART TEACHER COMPREHENSIVE METABOLIC PANEL Routine 06/18/2024 6:55 AM CULINARY ART TEACHER CBC W/DIFF AUTOMATED Routine 06/18/2024 6:55 AM CULINARY ART TEACHER CK (CPK) Routine 06/18/2024 6:55 AM CULINARY ART TEACHER POCT GLUCOSE - KILPATRICK DOCKED DEVICE Routine 06/18/2024 5:23 AM CULINARY ART TEACHER POCT GLUCOSE - KILPATRICK DOCKED DEVICE Routine 06/17/2024 8:46 PM CULINARY ART TEACHER URINE BACTERIA CULTURE Routine 5:03 PM CULINARY ART TEACHER HC URINALYSIS AUTO W/O MICRO Routine 06/17/2024 5:03 PM CULINARY ART TEACHER XR CHEST PORTABLE Today 06/17/2024 4:2 0 PM CULINARY ART TEACHER POCT GLUCOSE - KILPATRICK DOCKED DEVICE Routine 06/17/2024 3:53 PM CULINARY ART TEACHER POCT GLUCOSE - KILPATRICK DOCKED DEVICE Routine 06/17/2024 12:02 PM CULINARY ART TEACHER COMPREHENSIVE METABOLIC PANEL Routine 06/17/2024 7:47 AM CULINARY ART TEACHER CBC W/DIFF AUTOMATED Routine 06/17/2024 7:47 AM CULINARY ART TEACHER CK (CPK) Routine 06/17/2024 7:47 AM CULINARY ART TEACHER POCT GLUCOSE - KILPATRICK DOCKED DEVICE Routine 06/17/2024 6:01 AM CULINARY ART TEACHER POCT GLUCOSE - KILPATRICK DOCKED DEVICE Routine 06/16/2024 8:58 PM CULINARY ART TEACHER CORONAVIRUS (COVID 19) Routine 8:35 PM CULINARY ART TEACHER INFLUENZA A & B Routine 06/16/2024 8:35 PM CULINARY ART TEACHER POCT GLUCOSE - KILPATRICK DOCKED DEVICE Routine 06/16/2024 4:57 PM CULINARY ART TEACHER POCT GLUCOSE - KILPATRICK DOCKED DEVICE Routine 06/16/2024 12:00 PM CULINARY ART TEACHER CK (CPK) Routine 06/16/2024 7:48 AM CULINARY ART TEACHER CBC W/DIFF AUTOMATED Routine 06/16/2024 7:48 AM CULINARY ART TEACHER COMPREHENSIVE METABOLIC PANEL Routine 06/16/2024 7:48 AM CULINARY ART TEACHER POCT GLUCOSE - KILPATRICK DOCKED DEVICE Routine 06/16/2024 6:20 AM CULINARY ART TEACHER POCT GLUCOSE - KILPATRICK DOCKED DEVICE Routine 06/15/2024 8:36 PM CULINARY ART TEACHER POCT GLUCOSE - KILPATRICK DOCKED DEVICE Routine 06/15/2024 2:54 PM CULINARY ART TEACHER IR LUMB PUNCTURE DIAGNOSTIC Today 06/15/2024 2:23 PM CULINARY ART TEACHER SYPHILIS RPR VDRL CSF STAT 06/15/2024 1:15 PM CULINARY ART TEACHER CULTURE, CSF W/ GRAM STAIN STAT 06/15/2024 1:15 PM CULINARY ART TEACHER MENINGITIS/ENCEPHALITIS PANEL CSF STAT 06/15/2024 1:15 PM CULINARY ART TEACHER CELL COUNT, CSF Routine 06/15/2024 1:15 PM CULINARY ART TEACHER GLUCOSE CSF STAT 06/15/2024 1:15 PM CULINARY ART TEACHER PROTEIN TOTAL CSF STAT 06/15/2024 1:1 5 PM CULINARY ART TEACHER HSV, TYPE 1&2 DNA, QN RT PCR STAT 06/15/2024 1:13 PM CULINARY ART TEACHER POCT GLUCOSE - KILPATRICK DOCKED DEVICE Routine 06/15/2024 10:53 AM CULINARY ART TEACHER PARTIAL THROMBOPLASTIN TIME,PTT Routine 06/15/2024 10:21 AM CULINARY ART TEACHER PROTHROMBIN TIME, VENOUS STAT 06/15/2024 10:21 AM CULINARY ART TEACHER CK (CPK) Routine 06/15/2024 8:37 AM CULINARY ART TEACHER CBC W/DIFF AUTOMATED Routine 06/15/2024 8:37 AM CULINARY ART TEACHER COMPREHENSIVE METABOLIC PANEL Routine 06/15/2024 8:37 AM CULINARY ART TEACHER CYTOLOGY GENERIC STAT 06/15/2024 12:0 0 AM CULINARY ART TEACHER XR CHEST PA+LAT TIMED 06/14/2024 7:16 AM CULINARY ART TEACHER PARTIAL THROMBOPLASTIN TIME,PTT STAT 06/14/2024 6:21 AM CULINARY ART TEACHER PROTHROMBIN TIME, VENOUS STAT 06/14/2024 6:21 AM CULINARY ART TEACHER CK (CPK) STAT 06/14/2024 6:21 AM CULINARY ART TEACHER COMPREHENSIVE METABOLIC PANEL STAT 06/14/2024 6:21 AM CULINARY ART TEACHER CBC W/DIFF AUTOMATED STAT 06/14/2024 6:21 AM CULINARY ART TEACHER EEG ROUTINE STAT 06/14/2024 6:04 AM CULINARY ART TEACHER MRI BRAIN WO CON STAT 06/13/2024 10:1 1 PM CULINARY ART TEACHER RESPIRATORY PCR PANEL 2 STAT 06/13/19 25 7:54 PM CULINARY ART TEACHER URINE BACTERIA CULTURE STAT 7:54 PM CULINARY ART TEACHER AMMONIA Routine 06/13/2024 7:54 PM CULINARY ART TEACHER POCT GLUCOSE - KILPATRICK DOCKED DEVICE Routine 06/13/2024 5:31 PM CULINARY ART TEACHER VITAMIN B-12 Routine 06/13/2024 5:09 PM CULINARY ART TEACHER TSH W/REFLEX Routine 06/13/2024 5:09 PM CULINARY ART TEACHER TROPONIN, QUANT STAT 06/13/2024 5:09 PM CULINARY ART TEACHER HC MYCOPLASMA AB-90 Routine 06/13/2024 5 :08 PM CULINARY ART TEACHER XR CHEST PORTABLE STAT 06/13/2024 5:0 6 PM CULINARY ART TEACHER BLOOD GAS, ARTERIAL LAB STAT 06/13/19 5:06 PM CULINARY ART TEACHER HC INFECT AGENT DETECT OPTICAL STAT 06/13/2024 4:34 PM CULINARY ART TEACHER LEGIONELLA AG URINE STAT 06/13/2024 4 :34 PM CULINARY ART TEACHER DRUG SCREEN RAPID STAT 06/13/2024 4:3 4 PM CULINARY ART TEACHER HC URINALYSIS AUTO W/O MICRO STAT 06/13/2024 4:34 PM CULINARY ART TEACHER ECG 12-LEAD Routine 06/13/2024 1:[address]UL[address]ARY ART [address]ER [address] CERV SPINE WO CON STAT 06/13/2024 1:47 PM CULINARY ART TEACHER CTA HEAD+NECK STAT 06/13/2024 1:[address]INARY ART [address]ACHER [address] HEAD WO CON STAT 06/13/2024 1:47 PM CULINARY ART TEACHER XR CHEST PORTABLE STAT 06/13/2024 12: 29 PM CULINARY ART TEACHER PROLACTIN Routine 06/13/2024 11:58 AM CULINARY ART TEACHER PROCALCITONIN (PCT) Routine 06/13/2024 1 1:58 AM CULINARY ART TEACHER PHOSPHORUS, INORGANIC PHOSPHATE Routine 06/13/2024 11:58 AM CULINARY ART TEACHER MAGNESIUM Routine 06/13/2024 11:58 AM CULINARY ART TEACHER CK (CPK) Routine 06/13/2024 11:58 AM CULINARY ART TEACHER PARTIAL THROMBOPLASTIN TIME,PTT STAT 06/13/2024 11:58 AM CULINARY ART TEACHER PROTHROMBIN TIME, VENOUS STAT 06/13/2024 11:58 AM CULINARY ART TEACHER TROPONIN, QUANT STAT 06/13/2024 11:58 AM CULINARY ART TEACHER COMPREHENSIVE METABOLIC PANEL STAT 06/13/2024 11:58 AM CULINARY ART TEACHER CBC W/DIFF AUTOMATED STAT 06/13/2024 11:58 AM CULINARY ART TEACHER POCT GLUCOSE - KILPATRICK DOCKED DEVICE Routine 06/13/2024 11:20 AM CULINARY ART TEACHER BONE DENSITY GENERIC (SCAN ORDER) 04/26/2023 COLOGUARD (EXACT SCIENCE) Routine 01/23/2023 2:41 PM CDT Screening for malignant neoplasm of colon HEPATITIS C ANTIBODY Routine 07/02/2022 1:43 PM CULINARY ART TEACHER Screening for lipid disorders Screening for endocrine, metabolic and immunity disorder Need for hepatitis C screening test Annual physical exam from Last 3 Months or Most Recently Relevant to Health Maintenance Results * POCT glucose (06/26/2024 11:16 AM CULINARY ART TEACHER) Only the most recent of42 resultswithin the time period is included. GLUCOSE POC 77 70 - 110 mg/dL 06/26/2024 11:31 AM CULINARY ART TEACHER [facility] 06/26/2024 11:1 6 AM CULINARY ART TEACHER Mode Miles MD POCT ORDERABLES - DEVICE Final Result [facility] [address] [place] [address], * (ABNORMAL) COMPREHENSIVE METABOLIC PANEL (06/21/2024 5:31 AM CULINARY ART TEACHER) Only the most recent of9 resultswithin the time period is included. GLUCOSE 103(H) 70 - 99 MG/DL 06/21/2024 6:11 AM CULINARY ART TEACHER [facility] BUN 18 7 - 18 MG/DL 06/21/2024 6:11 AM CULINARY ART TEACHER [facility] CREATININE S/P/B 0.76 0.55 - 1.02 MG/DL 06/21/2024 6:11 AM [facility] SODIUM S/P/B 142 136 - 145 MMOL/L 06/21/2024 6:11 AM [facility] POTASSIUM S/P/B 3.6 3.5 - 5.1 MMOL/L 06/21/2024 6:11 AM [facility] CHLORIDE S/P/B 103 100 - 108 MMOL/L 06/21/2024 6:11 AM [facility] CO2 30.4 21 - 32 MMOL/L 06/21/2024 6:11 AM [facility] CALCIUM S/P/B 8.8 8.5 - 10.1 MG/DL 06/21/2024 6:11 AM [facility] BILIRUBIN TOTAL S/P/B 0.5 0.2 - 1.2 MG/DL 06/21/2024 6:11 AM [facility] TOTAL PROTEIN S/P/B 6.6 6.4 - 8.2 G/DL 06/21/2024 6:11 AM [facility] ALBUMIN S/P/B 2.7(L) 3.4 - 5.0 G/DL 06/21/2024 6:11 AM [facility] AST 34 15 - 37 U/L 06/21/2024 6:11 AM [facility] ALT 52 14 - 55 U/L 06/21/2024 6:11 AM [facility] ALKALINE PHOSPHATASE S/P/B 53 50 - 136 U/L 06/21/2024 6:11 AM [facility] ANION GAP 8.6 5 - 15 MMOL/L 06/21/2024 6:11 AM [facility] BUN CREATININE RATIO 23.7 6 - 26 06/21/2024 6:11 AM [facility] A/G RATIO 0.7(L) 1.0 - 2.0 RATIO 06/21/2024 6:11 AM [facility] GFR ESTIMATE 82(L) >90 ML/MIN/1.7 3 M2 06/21/2024 6:11 AM [facility] Comment: NOTE: eGFR is not calculated for patients <18 years of age. This is an estimated GFR calculation using the new CKD EPI creatinine equation without race and so does not require a correction factor for race. This estimated GFR should not be used for calculating drug doses. 06/21/2024 5:31 AM CULINARY ART TEACHER Karo Cross MD LABORATORY Final Res ult [facility] [address] [place] [address], * (ABNORMAL) CBC W/DIFF AUTOMATED (06/21/2024 5:31 AM CULINARY ART TEACHER) Only the most recent of9 resultswithin the time period is included. WBC 7.39 4.4 - 11.0 x10'3/uL 06/21/2024 5:57 AM [facility] RBC 3.50(L) 4.50 - 5.10 x10'6/uL 06/21/2024 5:57 AM [facility] HGB 10.8(L) 12.3 - 15.3 G/DL 06/21/2024 5:57 AM [facility] HCT 32.6(L) 35.9 - 44.6 % 06/21/2024 5:57 AM [facility] MCV 93.1 80.0 - 96.0 FL 06/21/2024 5:57 AM [facility] MCH 30.9 25.3 - 30.9 PG 06/21/2024 5:57 AM [facility] MCHC 33.1 31.0 - 34.1 G/DL 06/21/2024 5:57 AM [facility] RDW 12.1(L) 12.4 - 15.1 % 06/21/2024 5:57 AM [facility] PLT 240 151 - 353 x10'3/uL 06/21/2024 5:57 AM [facility] MPV 9.3(L) 9.6 - 12.0 FL 06/21/2024 5:57 AM [facility] RBC MORPHOLOGY NORMAL 06/21/2024 5:57 AM [facility] PLT MORPH. NORMAL 06/21/2024 5:57 AM [facility] WBC MORPHOLOGY NORMAL 06/21/2024 5:57 AM [facility] LYMPHOCYTES % 20.3 15.8 - 45.0 % 06/21/2024 5:57 AM [facility] NEUTROPHILS % 66.8 42.1 - 71.9 % 06/21/2024 5:57 AM [facility] MONOCYTES % 10.0 5.7 - 12.5 % 06/21/2024 5:57 AM [facility] EOSINOPHILS 2.0 0.0 - 5.6 % 06/21/2024 5:57 AM [facility] BASOPHILS 0.5 0.0 - 1.3 % 06/21/2024 5:57 AM [facility] ABS. NEUTROPHILS 4.93 1.40 - 6.00 x10'3/uL 06/21/2024 5:57 AM [facility] IMMATURE GRANS % 0.4 0.0 - 0.5 % 06/21/2024 5:57 AM CULINARY ART TEACHER [facility] ABS. LYMPHOCYTES 1.50 0.80 - 4.70 x10'3/uL 06/21/2024 5:57 AM [employer] [facility] 06/21/2024 5:31 AM [employer] Karo Cross MD LABORATORY Final Res ult Performing Organization Address City/[facility]/ZIP Co de Phone Number [facility] [address] [place] [address], [place] [phone] * CK (CPK) (06/18/2024 6:55 AM [employer]) Only the most recent of6 resultswithin the time period is included. CPK 180 21 - 215 U/L 06/18/2024 8:00 [address] [employer] [facility] 06/18/2024 6:55 AM [employer] Papa Spencer MD LABORATORY Final Result Performing Organization Address City/[facility]/ZIP Co de Phone Number [facility] [address] [place] [address], [place] [phone] * (ABNORMAL) URINALYSIS (06/17/2024 5:03 PM [employer]) Only the most recent of2 resultswithin the time period is included. SPECIMEN TYPE URINE CLEAN CATCH 06/17/2024 5:35 [address] [employer] [facility] COLOR (U) YELLOW 06/17/2024 6:00 [address] [employer] [facility] TRANSPARENCY TURBID 06/17/2024 6:00 PM [employer] [facility] SPECIFIC GRAVITY (U) 1.013 1.001 - 1.030 06/17/2024 6:00 [address] [employer] [facility] U PH 7.0 5.0 - 9.0 06/17/2024 6:00 PM [facility] LEUKOCYTES (U) 500(A) NEGATIVE 06/17/2024 6:00 PM [facility] NITRITES NEGATIVE NEGATIVE 06/17/2024 6:00 PM [facility] PROTEIN RANDOM (U) 20 <30 MG/DL 06/17/2024 6:00 PM [facility] GLUCOSE (U) NORMAL NORMAL MG/DL 06/17/2024 6:00 PM [facility] KETONES MG/DL (U) NEGATIVE NEGATIVE MG/DL 06/17/2024 6:00 PM [facility] UROBILINOGEN 2.0(A) NORMAL MG/DL 06/17/2024 6:00 PM [facility] [facility] BILIRUBIN (U) NEGATIVE NEGATIVE MG/DL 06/17/2024 6:00 PM [facility] BLOOD (U) TRACE(A) NEGATIVE 06/17/2024 6:00 PM [facility] WBC/HPF 64(H) <6 /HPF 06/17/2024 6:00 PM [facility] RBC/HPF 3 <6 /HPF 06/17/2024 6:00 PM [facility] BACTERIA (U) RARE(A) NONE /HPF 06/17/2024 6:00 PM [facility] URINE SPECIMEN OBTAINED BY CLEAN CATCH PROCEDURE / Unknown 06/17/2024 5:03 PM CULINARY ART TEACHER us Papa Spencer MD URINE ORDERABLES Final Resul t [facility] [address] [place] [address], * (ABNORMAL) URINE BACTERIA CULTURE (06/17/2024 5:03 PM CULINARY ART TEACHER) Only the most recent of2 resultswithin the time period is included. SPEC DESCRIPTION URINE CLEAN CATCH 06/18/2024 8:37 AM CULINARY ART TEACHER [facility] SPECIAL REQUESTS NO SPECIAL REQUEST 06/18/2024 8:37 AM CULINARY ART TEACHER [facility] CULTURE RESULT >100,000 COL/ML STAPH. SPECIES NOT STAPH. AUREUS (A) 06/20/2024 8:27 AM CULINARY ART TEACHER [facility] URINE SPECIMEN OBTAINED BY CLEAN CATCH PROCEDURE / Unknown 06/17/2024 5:03 PM CULINARY ART TEACHER 06/18/2024 9:07 AM CULINARY ART TEACHER Narrative Organism Antibiotic Method Susceptibility Staph. species not staph. aureus NITROFURANTOIN GEE (V ITEK) <=16: Sensitive Staph. species not staph. aureus LEVOFLOXACIN GEE (VIT EK) <=0.12: Sensitive Staph. species not staph. aureus OXACILLIN GEE (VIT EK) <=0.25: Sensitive Staph. species not staph. aureus PENICILLIN G GEE (VIT EK) >=0.5: Resistant Staph. species not staph. aureus TRIMETH-SULFAMETH. UT C (VITEK) <=10: Sensitive Staph. species not staph. aureus TETRACYCLINE GEE (VIT EK) <=1: Sensitive Papa Spencer MD MICROBIOLOGY - GENERAL ORDER BRIANNA Final Result [facility] [address] [place] [address], * XR CHEST PORTABLE (06/17/2024 4:20 PM CULINARY ART TEACHER) Only the most recent of3 resultswithin the time period is included. Anatomical Region Laterality Modality Chest Radiographic Vonnie ging 06/17/2024 9:54 PM CULINARY ART TEACHER Narrative 06/17/2024 9:57 PM CULINARY ART TEACHER [address] [address] EXAM: XR CHEST PORTABLE DATE: 06/17/2024 1615 hours Comparison 06/14/2024 INDICATION: Fever, leukocytosis TECHNIQUE: One view FINDINGS: Normal heart and pulmonary vessel size. The lungs are clear. No pleural effusion. Normal appearance of the bones. Pression: Normal exam. Referred By: Interpreted By: Jerrell Palacios MD, 06/17/2024 9:54 PM Procedure Note Jerrell Palacios MD - 06/17/[address] [address] EXAM: XR CHEST PORTABLE DATE: 06/17/2024 1615 hours Comparison 06/14/2024 INDICATION: Fever, leukocytosis TECHNIQUE: One view FINDINGS: Normal heart and pulmonary vessel size. The lungs are clear.No pleural effusion. Normal appearance of the bones. Pression: Normal exam. Referred By: Interpreted By: Jerrell Palacios MD, 06/17/2024 9:54 PM Papa Spencer MD GENERAL IMAGING Final Result * CORONAVIRUS (COVID 19) (06/16/2024 8:35 PM CULINARY ART TEACHER) CORONAVIRUS SARS COV 2 RNA NEGATIVE NEGATIVE 06/16/2024 9:49 PM CULINARY ART TEACHER [facility] Comment: NEGATIVE RESULTS DO NOT RULE OUT COVID 19 AND SHOULD NOT BE USED THE SOLE BASIS FOR TREATMENT OR PATIENT MANAGEMENT DECISIONS, INCLUDING INFECTION CONTROL DECISIONS. NEGATIVE RESULTS SHOULD BE CONSIDERED IN THE CONTEXT OF A PATIENT'S RECENT EXPOSURES, HISTORY AND THE PRESENCE OF CLINICAL SIGNS AND SYMPTOMS CONSISTENT WITH COVID 19. THE ID NOW COVID-19 2.0 TEST HAS BEEN AUTHORIZED BY THE FDA UNDER EAU FOR USE BY AUTHORIZED LABORATORIES. PERFORMED BY NUCLEIC ACID AMPLIFICATION FOR MOLECULAR QUALITATIVE DETECTION OF SARS-COV-2. SPECIMEN TYPE NASAL 06/16/2024 9:17 [address] CULINARY ART TEACHER [facility] NASAL STRUCTURE / Unknown 06/16/2024 8:35 PM CULINARY ART TEACHER Teresa Quiros MD MICROBIOLOGY - GENERAL O RDERABLES Final Result [facility] [address] [place] [address], [place] [phone] * INFLUENZA A & B, RAPID (06/16/2024 8:35 PM CULINARY ART TEACHER) SPECIMEN TYPE NASAL 06/16/2024 9:23 [address] CULINARY ART TEACHER [facility] INFLUENZA A NEGATIVE NEGATIVE 06/16/2024 9:49 PM CULINARY ART TEACHER [facility] INFLUENZA B NEGATIVE NEGATIVE 06/16/2024 9:49 [address] CULINARY ART TEACHER [facility] Comment: Interpretation: Negative for Influenza A and B. A negative result does not exclude influenza virus infection. If influenza is circulating in your community, a diagnosis of influenza should be considered based on a patient's clinical presentation and empiric antiviral treatment should be considered, if indicated. If more conclusive testing is needed for hospitalized inpatients, follow-up confirmatory testing with RT-PCR requires a separate order. NASAL STRUCTURE / Unknown 06/16/2024 8:35 PM CULINARY ART TEACHER Teresa Quiros MD MICROBIOLOGY - GENERAL O RDERABLES Final Result Performing Organization Address City/[facility]/ZIP Co de Phone Number [facility] [address] [place] [address], [place] [phone] * IR LUMB PUNCTURE DIAGNOSTIC (06/15/2024 2:23 PM CULINARY ART TEACHER) Anatomical Region Laterality Modality Spine Interventional R adiology 06/15/2024 1:42 PM CULINARY ART TEACHER Impressions 06/15/2024 1:44 PM CULINARY ART TEACHER IMPRESSION: 1. Fluoroscopy guided lumbar puncture performed at the L3-L4 level. 2. Opening CSF pressure of 15.8 cm H2O measured. 3. Total 9 mL of CSF fluid collected and sent for testing. 4. No immediate complication Ordered By: PAPA SPENCER Interpreted By: Latrice Valverde MD, 06/15/2024 1:42 PM Narrative 06/15/2024 1:44 PM CULINARY ART TEACHER [address] [address] Procedure: IR Lumbar puncture diagnostic with imaging Exam Date/Time: 06/15/2024 11:55 PM Indication: 73 female presenting for image guided lumbar puncture for CSF fluid collection for analysis; history of developmental delay and other multiple chronic medical issues presenting with increasing falls over one week. Concern for encephalopathy/encephalitis, stroke. Comparison: MRI brain 06/13/2024 Procedure technique and findings: Informed verbal and written consent was obtained with patient/patient's medical power of personal injury attorney. The procedure was discussed including the rationale, alternatives, benefits and risks. Timeout was performed Patient was positioned prone on the fluoroscopy procedure table. The L3-L4 interlaminar space was localized with fluoroscopy. Sterile technique including hand wash with soap and water, was employed for the procedure. The skin was prepped and draped. 1% lidocaine was administered for local anesthesia. A 22 gauge Tereza spinal needle was then advanced under fluoroscopic guidance into the thecal sac. Clear CSF fluid was returned. An opening CSF pressure of 15.8 cm H2O was measured. A total of 9 mL clear cerebrospinal fluid was collected and distributed amongst 4 vials. No closing CSF pressure measured. The stylet was replaced and the needle removed. Patient remained asymptomatic and tolerated the procedure well. No immediate complication. General Farm Manager: Dr. Valverde Radiation dose Air Kerma: 39.3 mGy; 3 fluoroscopy images recorded Procedure Note Latrice Valverde MD - 02/14/2025 [facility] [address] [place], [place] [address] Procedure: IR Lumbar puncture diagnostic with imaging Exam Date/Time: 06/15/2024 11:55 PM Indication: 73 female presenting for image guided lumbar puncture for CSFfluid collection for analysis; history of developmental delay and othermultiple chronic medical issues presenting with increasing falls over oneweek. Concern for encephalopathy/encephalitis, stroke. Comparison: MRI brain 06/13/2024 Procedure technique and findings: Informed verbal and written consent was obtained with patient/patient'smedical power of personal injury attorney. The procedure was discussed including therationale, alternatives, benefits and risks. Timeout was performed Patient was positioned prone on the fluoroscopy procedure table. The L3-S6xkurklxjkeqj space was localized with fluoroscopy. Sterile technique including hand wash with soap and water, was employedfor the procedure. The skin was prepped and draped. 1% lidocaine wasadministered for local anesthesia. A 22 gauge Tereza spinal needle wasthen advanced under fluoroscopic guidance into the thecal sac. Clear CSFfluid was returned. An opening CSF pressure of 15.8 cm H2O was measured. A total of 9 mL clear cerebrospinal fluid was collected and distributedamongst 4 vials. No closing CSF pressure measured. The stylet was replaced and the needleremoved. Patient remained asymptomatic and tolerated the procedure well. Noimmediate complication. General Farm Manager: Dr. Valverde Radiation dose Air Kerma: 39.3 mGy; 3 fluoroscopy images recorded IMPRESSION: 1. Fluoroscopy guided lumbar puncture performed at the L3-L4 level. 2. Opening CSF pressure of 15.8 cm H2O measured. 3. Total 9 mL of CSF fluid collected and sent for testing. 4. No immediate complication Ordered By: PAPA SPENCER Interpreted By: Latrice Valverde MD, 06/15/2024 1:42 PM us Papa Spencer MD INTERVENTIONAL RADIOLOGY Fin al Result * CULTURE, CSF W/ GRAM STAIN (06/15/2024 1:15 PM CULINARY ART TEACHER) [facility] SPEC DESCRIPTION CSF, LUMBAR 06/15/2024 2:24 [address] CULINARY ART TEACHER [facility] SPECIAL REQUESTS NO SPECIAL REQUEST 06/15/2024 2:24 PM CULINARY ART TEACHER [facility] GRAM STAIN RESULT NO WHITE BLOOD CELLS SEEN 06/15/2024 4:08 PM CULINARY ART TEACHER [facility] GRAM STAIN RESULT NO ORGANISMS SEEN 06/15/2024 4:08 PM CULINARY ART TEACHER [facility] CULTURE RESULT NO GROWTH 5 DAYS 06/20/2024 8:44 AM CULINARY ART TEACHER [facility] CSF, LUMBAR 06/15/2024 1:15 PM CULINARY ART TEACHER 06/15/2024 2:37 PM CULINARY ART TEACHER Papa Spencer MD MICROBIOLOGY - GENERAL ORDER BRIANNA Final Result [facility] [address] [place] [address], * MENINGITIS/ENCEPHALITIS PANEL CSF (06/15/2024 1:15 PM CULINARY ART TEACHER) [facility] ESCHERICHIA COLI K1 PCR (CSF) NOT DETECTED NOT DETECTED 06/15/2024 7:32 PM CULINARY ART TEACHER [facility] H. INFLUENZAE PCR (CSF) NOT DETECTED NOT DETECTED 06/15/2024 7:32 PM CULINARY ART TEACHER [facility] LISTERIA MONOCYTOGENES PCR (CSF) NOT DETECTED NOT DETECTED 06/15/2024 7:32 PM CULINARY ART TEACHER [facility] N. MENINGITIDIS PCR (CSF) NOT DETECTED NOT DETECTED 06/15/2024 7:32 PM CULINARY ART TEACHER [facility] STREP AGALACTIAE PCR (CSF) NOT DETECTED NOT DETECTED 06/15/2024 7:32 PM CULINARY ART TEACHER [facility] STREP PNEUMONIAE PCR (CSF) NOT DETECTED NOT DETECTED 06/15/2024 7:32 PM CULINARY ART TEACHER [facility] CYTOMEGALOVIRUS PCR (CSF) NOT DETECTED NOT DETECTED 06/15/2024 7:32 PM CULINARY ART TEACHER [facility] ENTEROVIRUS PCR (CSF) NOT DETECTED NOT DETECTED 06/15/2024 7:32 PM CULINARY ART TEACHER [facility] HERPES SIMPLEX 1 PCR (CSF) NOT DETECTED NOT DETECTED 06/15/2024 7:32 PM CULINARY ART TEACHER [facility] HERPES SIMPLEX 2 PCR (CSF) NOT DETECTED NOT DETECTED 06/15/2024 7:32 PM CULINARY ART TEACHER [facility] HUMAN HERPESVIRUS 6 PCR (CSF) NOT DETECTED NOT DETECTED 06/15/2024 7:32 PM CULINARY ART TEACHER [facility] HUMAN PARECHOVIRUS PCR (CSF) NOT DETECTED NOT DETECTED 06/15/2024 7:32 PM CULINARY ART TEACHER [facility] VARICELLA ZOSTER PCR NOT DETECTED NOT DETECTED 06/15/2024 7:32 PM CULINARY ART TEACHER [facility] C NEOFORMANS/GATTII PCR (CSF) NOT DETECTED NOT DETECTED 06/15/2024 7:32 PM CULINARY ART TEACHER [facility] CSF, LUMBAR 06/15/2024 1:15 PM CULINARY ART TEACHER us Papa Spencer MD BODY FLUIDS AND STOOLS ORDER BRIANNA Final Result [facility] [address] [place] [address], [phone] * CELL COUNT, CSF (06/15/2024 1:15 PM CULINARY ART TEACHER) TUBE NUMBER 3 06/15/2024 3:47 [address] CULINARY ART TEACHER [facility] TOTAL VOLUME (CSF) 9.0 ML 06/15/2024 3:47 PM CULINARY ART TEACHER [facility] COLOR (CSF) COLORLESS 06/15/2024 3:47 PM CULINARY ART TEACHER [facility] CLARITY (CSF) CLEAR 06/15/2024 3:47 PM CULINARY ART TEACHER [facility] RBC (CSF) 118 CELLS/UL 06/15/2024 3:47 PM CULINARY ART TEACHER [facility] TOTAL NUCLEATED CELL (CSF) 5 0 - 5 CELLS/UL 06/15/2024 3:47 PM CULINARY ART TEACHER [facility] SEGS (CSF) 14 % 06/15/2024 3:47 [address] CULINARY ART TEACHER [facility] LYMPHS (CSF) 38 % 06/15/2024 3:47 [address] CULINARY ART TEACHER [facility] OTHER MONONUCLEAR CELLS (CSF) 48 % 06/15/2024 3:47 PM CULINARY ART TEACHER [facility] Comment: THE FOLLOWING MAY INCLUDE MONOCYTE/MACROPHAGE,PLASMA CELL,MESOTHELIAL CELL,BRONCHIAL LINING CELL,SYNOVIAL LINING CELL,VENTRICULAR LINING CELL,ENDOTHELIAL CELL,SQUAMOUS EPITHELIAL AND OTHER CELLS. CSF, LUMBAR 06/15/2024 1:15 PM CULINARY ART TEACHER us Papa Spencer MD BODY FLUIDS AND STOOLS ORDER BRIANNA Final Result Performing Organization Address City/[facility]/ZIP Co de Phone Number [facility] [address] [place] [address], [place] [phone] * (ABNORMAL) GLUCOSE CSF (06/15/2024 1:15 PM CULINARY ART TEACHER) GLUCOSE (CSF) 71(H) 40 - 70 MG/DL 06/15/2024 2:50 [address] CULINARY ART TEACHER [facility] CEREBRAL SPINAL FLUID (CSF, LUMBAR) 06/15/2024 1:15 PM CULINARY ART TEACHER us Papa Spencer MD BODY FLUIDS AND STOOLS ORDER BRIANNA Final Result Performing Organization Address City/[facility]/ZIP Co de Phone Number [facility] [address] [place] [address], [place] [phone] * SYPHILIS RPR VDRL CSF (06/15/2024 1:15 PM CULINARY ART TEACHER) VDRL (CSF) Nonreactive Nonreactive 06/18/2024 2:07 PM CULINARY ART TEACHER [employer] [facility]ICKY [facility]ORNE Comment: Test Performed by Jani Marcial, [facility], [address] [place], [place] Hao Vincent M.D., Ph.D., Director of Laboratories , [place] [id number] CSF, LUMBAR 06/15/2024 1:15 PM CULINARY ART TEACHER Papa Spencer MD BODY FLUIDS AND STOOLS ORDER BRIANNA Final Result Performing Organization Address City/[facility]/ZIP Co de Phone Number [employer] [facility] [address] [place], [place] , [place] [phone] * (ABNORMAL) PROTEIN TOTAL CSF (06/15/2024 1:15 PM CULINARY ART TEACHER) Pathologist [facility] TOTAL PROTEIN (CSF) 66(H) 15 - 45 MG/DL 06/15/2024 2:50 [address] CULINARY ART TEACHER [facility] CEREBRAL SPINAL FLUID (CSF, LUMBAR) 06/15/2024 1:15 PM CULINARY ART TEACHER Papa Spencer MD BODY FLUIDS AND STOOLS ORDER BRIANNA Final Result [facility] [address] [place] [address], [place] [phone] * HSV, TYPE 1&2 DNA, QN RT PCR (06/15/2024 1:13 PM CULINARY ART TEACHER) Pathologist [facility] SPECIMEN SOURCE CEREBROSPINAL FLUID 06/15/2024 2:37 [address] CULINARY ART TEACHER [facility] HSV 1 DNA Not Detected <100 copies/ mL 06/18/2024 5:27 PM CULINARY ART TEACHER [employer] [facility] HSV 2 DNA Not Detected <100 copies/ mL 06/18/2024 5:27 PM CULINARY ART TEACHER [employer] [facility] Comment: Reference Range: Not Detected This test was developed and its analytical performance characteristics have been determined by [facility] [place], [place]. It has not been cleared or approved by the FDA. This assay has been validated pursuant to the CLIA regulations and is used for clinical purposes. Test Performed by [facility], [facility], [address] [place] [address] Hao Vincent M.D., Ph.D., Director of Laboratories , CLIA [id number] CSF, LUMBAR 06/15/2024 1:13 PM CULINARY ART TEACHER us Papa Spencer MD LABORATORY Final Result Performing Organization Address City/[facility]/ZIP Co de Phone Number [employer] [address] , [place] [phone] [facility] [address] [place] [address], [place] [phone] * PTT, PARTIAL THROMBOPLASTIN TIME (06/15/2024 10:21 AM CULINARY ART TEACHER) Only the most recent of3 resultswithin the time period is included. Pathologist [facility] PTT 28.4 25.1 - 36.5 SEC 06/15/2024 10:56 [address] CULINARY ART TEACHER [facility] 06/15/2024 10:2 1 AM CULINARY ART TEACHER us Papa Spencer MD LABORATORY Final Result [facility] [address] [place] [address], [place] [phone] * (ABNORMAL) PROTIME/INR, VENOUS (06/15/2024 10:21 AM CULINARY ART TEACHER) Only the most recent of3 resultswithin the time period is included. PROTIME 14.0(H) 10.2 - 12.9 SEC 06/15/2024 10:56 AM CULINARY ART TEACHER [facility] INR 1.2 06/15/2024 10:56 AM CULINARY ART TEACHER [facility] Comment: Recommended INR Therapeutic Goals: 2.0-3.0 Routine Therapy 2.5-3.5 Mechanical Prosthetic Valves (High Risk) 06/15/2024 10:2 1 AM CULINARY ART TEACHER us Papa Spencer MD LABORATORY Final Result [facility] [address] [place] [address], * CYTOLOGY GENERIC (06/15/2024 12:00 AM CULINARY ART TEACHER) CYTOLOGY OTHER [facility] Department of Laboratory Medicine [address] [place] [address] , extension [phone] Pathology Report Non-gynecologic Cytology Report Name: ROSANA RITCHIE Specimen #: [id number] Age: 7 1950 (Age: 73) Location: [facility] Sex: F Procedure Date: 06/15/2024 Hospital #: [id number] Date Received: 06/18/2024 Date Reported: 06/19/2024 Provider: PAPA MONZON MD Source: CEREBROSPINAL FLUID, LUMBAR PUNCTURE Clinical History: AMS FINAL DIAGNOSIS: Cerebrospinal fluid, lumbar puncture: -Satisfactory for evaluation. -Negative for malignant cells. -Scant blood present. Gross Description: SPECIMEN RECEIVED: 2 slides submitted from the Hematology department SLIDES PREPARED: 2 cytospins; all slides were microscopically examined by a pathologist. STAINS: Le Initial cytologic screening, interpretation, and sign out were performed at [facility], [address] [place] [address]. Electronically Signed Out SHAHRIAR OAKLEY MD [facility] CSF, LUMBAR 06/15/2024 06/18/2024 12 :37 PM CULINARY ART TEACHER Comment:CEREBROSPINAL FLUID, LUMBAR PUNCTURE Papa Spencer MD PATHOLOGY/CYTOLOGY ORDERABLE S Final Result [facility] [address] [place] [address], [phone] * XR CHEST PA+LAT (06/14/2024 7:16 AM CULINARY ART TEACHER) Anatomical Region Laterality Modality Chest Radiographic Vonnie ging 06/14/2024 7:37 AM CULINARY ART TEACHER Impressions 06/14/2024 7:40 AM CULINARY ART TEACHER IMPRESSION: 1. No acute findings. Previously seen questioned right perihilar airspace opacity is not appreciated on today's study. 2. Enteric tube with side port and distal tip projecting over the stomach. Referred By: Interpreted By: Herberth Charles MD, 06/14/2024 7:37 AM Narrative 06/14/2024 7:40 AM CULINARY ART TEACHER [address] [address] XR CHEST PA+LAT INDICATION: Abnormality on portable chest TECHNIQUE: PA and lateral views of the chest. COMPARISON: Chest radiograph 06/13/2024. FINDINGS: Endogastric tube side port projecting over the stomach, distal tip projecting over the peripatellar region. Additional overlying monitoring devices project over the chest. Cardiomediastinal silhouette is within normal limits. Atelectatic calcifications of the thoracic aorta. No pulmonary vascular congestion. No focal pulmonary consolidation. Previously seen right perihilar airspace opacity is not appreciated on today's study. No pleural effusions or pneumothorax. Diffuse osseous demineralization. Thoracic spondylosis. Right upper quadrant cholecystectomy clips. Procedure Note Herberth Charles MD - 06/14/2024 [facility] [address] [place], [place] [address] XR CHEST PA+LAT INDICATION: Abnormality on portable chest TECHNIQUE: PA and lateral views of the chest. COMPARISON: Chest radiograph 06/13/2024. FINDINGS: Endogastric tube side port projecting over the stomach, distal tipprojecting over the peripatellar region. Additional overlying monitoringdevices project over the chest. Cardiomediastinal silhouette is withinnormal limits. Atelectatic calcifications of the thoracic aorta. Nopulmonary vascular congestion. No focal pulmonary consolidation.Previously seen right perihilar airspace opacity is not appreciated ontoday's study. No pleural effusions or pneumothorax. Diffuse osseousdemineralization. Thoracic spondylosis. Right upper quadrantcholecystectomy clips. IMPRESSION: 1. No acute findings. Previously seen questioned right perihilarairspace opacity is not appreciated on today's study. 2. Enteric tube with side port and distal tip projecting over thestomach. Referred By: Interpreted By: Herberth Charles MD, 06/14/2024 7:37 AM [place] [employer] RELIEF WORKER GENERAL IMAGING Final Resul t * MRI BRAIN WO CON (06/13/2024 10:11 PM CULINARY ART TEACHER) Anatomical Region Laterality Modality Head Magnetic Resonan ce 06/13/2024 10:1 5 PM CULINARY ART TEACHER Impressions 06/13/2024 10:17 PM CULINARY ART TEACHER IMPRESSION: ===== 1. No convincing acute intracranial abnormality within limitations of motion artifact. 2. Atrophy and small vessel ischemic disease. Referred By: Interpreted By: Willam Dinh MD, 06/13/2024 10:15 PM Narrative 06/13/2024 10:17 [address] CULINARY ART TEACHER [facility] [address] [place], [place] [address] EXAMINATION: MRI brain without contrast. EXAM DATE/TIME: 06/13/2024 10:01 PM REASON FOR EXAM: ORDERING PROVIDER COMMENT: AMS, left sided symptoms Altered mental status. Increasing falls on Tuesday. Decreased mental awareness. Unable to speak. COMPARISON: Head CT 06/13/2024. Prior brain MRI from [facility]. TECHNIQUE: Multiplanar multisequence MRI of the brain was obtained without the use of IV contrast agent. FINDINGS: Motion artifact limited evaluation across multiple sequences. There is no convincing abnormal increased signal on diffusion-weighted imaging to suggest an acute infarct. Ventricles are enlarged with prominent bilateral sulci. Patchy and confluent areas of FLAIR signal abnormality are seen in the periventricular deep white matter distribution. No convincing intracranial hemorrhage. Bilateral lens extractions with grossly unremarkable orbital contents otherwise. Limited evaluation of paranasal sinuses. Mastoid air cells are grossly clear. The visualized portions of major intracranial arterial flow voids at the skull base are present. Sella and suprasellar regions unremarkable. No convincing abnormal signal in the cervical cord on T1 imaging. ===== Procedure Note Willam Dinh MD - 06/13/[address] [address] EXAMINATION: MRI brain without contrast. EXAM DATE/TIME: 06/13/2024 10:01 PM REASON FOR EXAM: ORDERING PROVIDER COMMENT: AMS, left sided symptoms Altered mental status. Increasing falls on Tuesday. Decreased mentalawareness. Unable to speak. COMPARISON: Head CT 06/13/2024. Prior brain MRI from [facility]. TECHNIQUE: Multiplanar multisequence MRI of the brain was obtained withoutthe use of IV contrast agent. FINDINGS: Motion artifact limited evaluation across multiple sequences.There is no convincing abnormal increased signal on diffusion-weightedimaging to suggest an acute infarct. Ventricles are enlarged withprominent bilateral sulci. Patchy and confluent areas of FLAIR signalabnormality are seen in the periventricular deep white matterdistribution. No convincing intracranial hemorrhage. Bilateral lensextractions with grossly unremarkable orbital contents otherwise. Limitedevaluation of paranasal sinuses. Mastoid air cells are grossly clear.The visualized portions of major intracranial arterial flow voids at theskull base are present. Sella and suprasellar regions unremarkable. Noconvincing abnormal signal in the cervical cord on T1 imaging. ===== IMPRESSION: ===== 1. No convincing acute intracranial abnormality within limitations ofmotion artifact. 2. Atrophy and small vessel ischemic disease. Referred By: Interpreted By: Willam Dinh MD, 06/13/2024 10:15 PM Alexandria Patricio SAWMILL RELIEF WORKER MRI Final Resul t * RESPIRATORY PCR PANEL 2 (06/13/2024 7:54 PM CULINARY ART TEACHER) ADENOVIRUS PCR (RESP) NOT DETECTED NOT DETECTED 06/13/2024 9:10 PM CULINARY ART TEACHER [facility] CORONAVIRUS 229E PCR (RESP) NOT DETECTED NOT DETECTED 06/13/2024 9:10 PM CULINARY ART TEACHER [facility] CORONAVIRUS HKU1 PCR (RESP) NOT DETECTED NOT DETECTED 06/13/2024 9:10 PM CULINARY ART TEACHER [facility] CORONAVIRUS NL63 PCR (RESP) NOT DETECTED NOT DETECTED 06/13/2024 9:10 PM CULINARY ART TEACHER [facility] CORONAVIRUS OC43 PCR (RESP) NOT DETECTED NOT DETECTED 06/13/2024 9:10 PM CULINARY ART TEACHER [facility] METAPNEUMOVIRUS PCR (RESP) NOT DETECTED NOT DETECTED 06/13/2024 9:10 PM CULINARY ART TEACHER [facility] RHINOVIRUS/ENTEROV IRUS PCR (RESP) NOT DETECTED NOT DETECTED 06/13/2024 9:10 PM CULINARY ART TEACHER [facility] INFLUENZA A PCR (RESP) NOT DETECTED NOT DETECTED 06/13/2024 9:10 PM CULINARY ART TEACHER [facility] INFLUENZA B PCR (RESP) NOT DETECTED NOT DETECTED 06/13/2024 9:10 PM CULINARY ART TEACHER [facility] PARAINFLUENZA 1 PCR (RESP) NOT DETECTED NOT DETECTED 06/13/2024 9:10 PM CULINARY ART TEACHER [facility] PARAINFLUENZA 2 PCR (RESP) NOT DETECTED NOT DETECTED 06/13/2024 9:10 PM CULINARY ART TEACHER [facility] PARAINFLUENZA 3 PCR (RESP) NOT DETECTED NOT DETECTED 06/13/2024 9:10 PM CULINARY ART TEACHER [facility] PARAINFLUENZA 4 PCR (RESP) NOT DETECTED NOT DETECTED 06/13/2024 9:10 PM CULINARY ART TEACHER [facility] RSV PCR (RESP) NOT DETECTED NOT DETECTED 06/13/2024 9:10 PM CULINARY ART TEACHER [facility] B PARAPERTUSIS PCR (RESP) NOT DETECTED NOT DETECTED 06/13/2024 9:10 PM CULINARY ART TEACHER [facility] BORDETELLA PERTUSSIS PCR (RESP) NOT DETECTED NOT DETECTED 06/13/2024 9:10 PM CULINARY ART TEACHER [facility] CHLAMYDOPHILA PNEUMONIAE PCR (RESP) NOT DETECTED NOT DETECTED 06/13/2024 9:10 PM CULINARY ART TEACHER [facility] MYCOPLASMA PNEUMONIAE PCR (RESP) NOT DETECTED NOT DETECTED 06/13/2024 9:10 PM CULINARY ART TEACHER [facility] CORONAVIRUS SARS COV 2 PCR (RESP) NOT DETECTED NOT DETECTED 06/13/2024 9:10 PM CULINARY ART TEACHER [facility] NASOPHARYNGEAL SWAB / Unknown 06/13/2024 7:54 PM CULINARY ART TEACHER Alexandria Patricio SAWMILL RELIEF WORKER MICROBIOLOGY - GENERAL TRISTEN LOBO Final Result [facility] [address] [place] [address], * AMMONIA (06/13/2024 7:54 PM CULINARY ART TEACHER) AMMONIA 20 11 - 32 UMOL/L 06/13/2024 8:32 [address] CULINARY ART TEACHER [facility] 06/13/2024 7:54 PM CULINARY ART TEACHER us Alexandria Patricio DAVID LABORATORY Final Resul t Performing Organization Address City/[facility]/ZIP Co de Phone Number [facility] [address] [place] [address], [place] [phone] * TSH W/REFLEX (06/13/2024 5:09 PM CULINARY ART TEACHER) TSH 0.921 0.358 - 3.74 uIU/ML 06/13/2024 7:38 [address] CULINARY ART TEACHER [facility] Comment: HIGH DOSES OF BIOTIN MAY INTERFERE WITH THIS TEST RESULT. CORRELATION TO CLINICAL HISTORY AND PRESENTATION RECOMMENDED. FREE T4 NOT INDICATED 06/13/2024 5:09 PM CULINARY ART TEACHER us Alexandria Patricio DAVID LABORATORY Final Resul t Performing Organization Address [facility] Co de Phone Number [facility] [address] [place] [address], [place] [phone] * VITAMIN B-12 (06/13/2024 5:09 PM CULINARY ART TEACHER) VITAMIN B12 S/P/B 452 254 - 1,320 PG/ML 06/13/2024 7:04 [address] CULINARY ART TEACHER [facility] 06/13/2024 5:09 PM CULINARY ART TEACHER us Alexandria Patricio SAWMILL RELIEF WORKER LABORATORY Final Resul t Performing Organization Address City/[facility]/ZIP Co de Phone Number [facility] [address] [place] [address], [place] [phone] * TROPONIN, QUANT (06/13/2024 5:09 PM CULINARY ART TEACHER) Only the most recent of2 resultswithin the time period is included. Pathologist [facility] TROPONIN I HIGH SENSITIVITY 42 <54 ng/L 06/13/2024 6:09 [address] CULINARY ART TEACHER [facility] Comment: HIGH DOSES OF BIOTIN, TROPONIN-SPECIFIC AUTOANTIBODIES, AND ANTIBODY THERAPY CONTAINING HAMA MAY INTERFERE WITH THIS TEST RESULT. CORRELATION TO CLINICAL HISTORY AND PRESENTATION RECOMMENDED. 06/13/2024 5:09 PM CULINARY ART TEACHER Alexandria Patricio SAWMILL RELIEF WORKER LABORATORY Final Resul t [facility] [address] [place] [address], * (ABNORMAL) MYCOPLASMA PNEUMONIAE AB (06/13/2024 5:08 PM CULINARY ART TEACHER) [facility] M. PNEUMONIAE AB IGG 2.80(H) <=0.90 06/18/2024 3:34 PM CULINARY ART TEACHER [employer] [facility] Comment: Reference Range: <=0.90 Negative 0.91-1.09 Equivocal >=1.10 Positive A positive IgG result indicates that the patient has antibody to Mycoplasma. It does not differentiate between an active or past infection. The clinical diagnosis must be interpreted in conjunction with the clinical signs and symptoms of the patient. M. PNEUMONIAE AB IGM 45 <770 U/mL 06/18/2024 3:34 PM CULINARY ART TEACHER [employer] [facility] Comment: Reference Range: <770 U/ml Negative 770-950 U/mL Low positive >950 U/mL Positive A positive IgM antibody result is consistent with recent infection. However, a negative result does not necessarily rule out recent infection as some individuals may not mount another IgM response, if previously infected. A positive IgM antibody result with or without a positive IgG antibody result, is consistent with recent infection. However, a negative result does not necessarily rule out recent infection as some individuals may not mount another IgM response, if previously infected. A positive IgG antibody result in the absence of a positive IgM antibody result, indicates that the patient has antibody to Mycoplasma. It does not differentiate between an active or past infection. The clinical diagnosis must be interpreted in conjunction with the clinical signs and symptoms of the patient. Test Performed by [facility] [address] [place], [place] Hao Vincent M.D., Ph.D., Director of Laboratories , [place] [id number] 06/13/2024 5:08 PM CULINARY ART TEACHER Alexandria Patricio SAWMILL RELIEF WORKER LABORATORY Final Resul t [employer] [facility] [address] [place], [place] , [place] [phone] * (ABNORMAL) ARTERIAL BLOOD GAS (06/13/2024 5:06 PM CULINARY ART TEACHER) PH ARTERIAL 7.34(L) 7.35 - 7.45 06/13/2024 5:14 PM [facility] PCO2 45.0 35.0 - 45.0 MMHG 06/13/2024 5:14 PM [facility] PO2 74.0(L) 83.0 - 108.0 MMHG 06/13/2024 5:14 PM [facility] TOTAL CO2 ARTERIAL 25.7(H) 19.0 - 24.0 MMOL/L 06/13/2024 5:14 PM [facility] BASE DEFICIT 1.7 0.0 - 3.0 MMOL/L 06/13/2024 5:14 PM [facility] O2 SATURATION 94 94.0 - 98.0 % 06/13/2024 5:14 PM [facility] BICARB ARTERIAL 24.3 21.0 - 28.0 MMOL/L 06/13/2024 5:14 PM [facility] MARKELL TEST MARKELL TEST PERFORMED 06/13/2024 5:11 PM [facility] O2 ADMIN ARTERIAL 21 06/13/2024 5:11 PM [facility] DRAW SITE ARTERIAL RT RADIAL 06/13/2024 5:11 PM CULINARY ART TEACHER [facility] 06/13/2024 5:06 PM CULINARY ART TEACHER Alexandria Patricio APRN LABORATORY Final Resul t Performing Organization Address City/[facility]/ZIP Co de Phone Number [facility] [address] [place] [address], [place] [phone] * STREP PNEUMO AG URINE (06/13/2024 4:34 PM CULINARY ART TEACHER) S. PNEUMONIAE URINARY AG NEGATIVE NEGATIVE 06/14/2024 12:15 PM CULINARY ART TEACHER [facility] URINE SPECIMEN OBTAINED BY CLEAN CATCH PROCEDURE / Unknown 06/13/2024 4:34 PM CULINARY ART TEACHER Alexandria Patricio APRN MICROBIOLOGY - GENERAL ORDE RABLES Final Result [facility] [address] [place] [address], [place] [phone] * DRUG SCREEN RAPID (06/13/2024 4:34 PM CULINARY ART TEACHER) AMPHETAMINE (U) NEGATIVE NEGATIVE 3:37 AM CULINARY ART TEACHER [facility] BARBITURATES SCREEN (U) NEGATIVE NEGATIVE 06/14/2024 3:37 AM CULINARY ART TEACHER [facility] BENZODIAZEPINES SCREEN (U) NEGATIVE NEGATIVE 06/14/2024 3:37 AM CULINARY ART TEACHER [facility] CANNABINOIDS SCREEN (U) NEGATIVE NEGATIVE 06/14/2024 3:37 AM CULINARY ART TEACHER [facility] COCAINE METABOLITES (U) NEGATIVE NEGATIVE 06/14/2024 3:37 AM CULINARY ART TEACHER [facility] METHADONE (U) NEGATIVE NEGATIVE 06/14/2024 3:37 AM CULINARY ART TEACHER [facility] OPIATE SCREEN (U) NEGATIVE NEGATIVE 025 3:37 AM CULINARY ART TEACHER [facility] PHENCYCLIDINE PCP (U) NEGATIVE NEGATIVE 06/14/2024 3:37 AM [facility] Comment: NOTE: RESULTS OF THIS DRUG SCREEN SHOULD BE USED FOR MEDICAL PURPOSES ONLY AND NOT FOR LEGAL OR EMPLOYMENT PURPOSES. POSITIVE RESULTS ARE NOT CONFIRMED. MEDICATIONS CONTAINING EPHEDRINE MAY CAUSE FALSE POSITIVE AMPHETAMINE CALL [phone], LAB, TO REQUEST CONFIRMATION TESTING. IF CREATININE IS <40 mg/dL. RECOLLECTION IS SUGGESTED. AMPHETAMINE- 500 NG/ML BARBITURATE- 200 NG/ML BENZODIAZEPINES- 200 NG/ML THC- 50 NG/ML COCAINE- 150 NG/ML METHADONE- 300 NG/ML OPIATE- 300 MG/ML PCP- 25 NG/ML CREATININE (U) 63.3 28 - 217 MG/DL 06/14/2024 3:37 AM CULINARY ART TEACHER [facility] URINE SPECIMEN / Unknown 06/13/2024 4:34 PM CULINARY ART TEACHER us Alexandria Patricio APRN URINE ORDERABLES Final Resu lt [facility] [address] [place] [address], [place] [phone] * LEGIONELLA AG URINE (06/13/2024 4:34 PM CULINARY ART TEACHER) LEGIONELLA ANTIGEN (URINE) NEGATIVE NEGATIVE 06/14/2024 12:15 PM CULINARY ART TEACHER [facility] URINE SPECIMEN / Unknown 06/13/2024 4:34 PM CULINARY ART TEACHER us Alexandria Patricio SAWMILL RELIEF WORKER MICROBIOLOGY - GENERAL ORDE RAUDELLES Final Result Performing Organization Address City/[facility]/ZIP Co de Phone Number [facility] [address] [place] [address], [place] [phone] * ECG 12 lead (06/13/2024 1:58 PM CULINARY ART TEACHER) 06/13/2024 1:58 PM CULINARY ART TEACHER Narrative [facility] ([facility]) RAD - 06/13/2024 7:22 [address] CULINARY ART TEACHER 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 Anand Torres NARY ART TEACHER Procedure Note Lisa Recinos MD - 06/13/2024 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 Anand Torres NARY ART TEACHER us Isma Vázquez LEGAL SUPPORT MANAGER ECG ORDERABLES Final Result [facility] ([facility] * CTA HEAD+NECK (06/13/2024 1:47 PM CULINARY ART TEACHER) Anatomical Region Laterality Modality Head, Neck Computed Tomogra phy 06/13/2024 3:00 PM CULINARY ART TEACHER Impressions 06/13/2024 3:17 PM CULINARY ART TEACHER IMPRESSION: 1. No evidence of dissection, pseudoaneurysm, or significant stenosis. 2. No evidence of intracranial large vessel arterial occlusion. 3. Right posterior communicating artery not clearly visualized, this may be diminutive or absent. 4. Per Nascet criteria, less than 50% stenosis right internal carotid artery, no significant stenosis on the left. 5. Extensive degenerative changes of the spine with extensive canal and foraminal stenosis suspected. 6. If neurologic signs are present, MRI recommended. Referred By: Interpreted By: Noam Wood MD, 06/13/2024 3:00 PM Narrative 06/13/2024 3:17 PM CULINARY ART TEACHER [address] [address] EXAMINATION: CT ANGIOGRAM BRAIN AND NECK WITH CONTRAST EXAM DATE: 06/13/2024 1:36 PM REASON FOR EXAM: weakness, frequent falls COMPARISON: None TECHNIQUE: Axial images of the head and neck after injection of 80 mL Isovue- 370. 3-D post processed images were reconstructed on an independent workstation with concurrent physician supervision. Dose lowering technique was used for this study which may include, but is not limited to, dose reduction techniques, automated exposure control, use of iterative reconstruction and ALARA (As low As Reasonably Achievable)/Image Gently techniques. FINDINGS: BRAIN: Right internal carotid artery: Within normal limits. Left internal carotid artery:Within normal limits. Right vertebral artery:Within normal limits. Left vertebral artery: Within normal limits. Basilar artery: Within normal limits. Right anterior cerebral artery: Within normal limits. Left anterior cerebral artery: Within normal limits. Anterior communicating artery: Within normal limits. Right middle cerebral artery: Within normal limits. Left middle cerebral artery: Within normal limits. Right posterior cerebral artery: Within normal limits. Left posterior cerebral artery: Within normal limits. Right posterior communicating artery: Not clearly visualized, this may be diminutive or absent. Left posterior communicating artery: Within normal limits. NECK: Right common carotid artery: Atherosclerosis without significant stenosis. Left common carotid artery: Atherosclerosis with less than 50% stenosis. Right internal carotid artery: Within normal limits. Left internal carotid artery: Within normal limits. External carotid arteries: Within normal limits. Right vertebral artery: Within normal limits. Left vertebral artery: Within normal limits. SOFT TISSUES: Within normal limits. Extensive degenerative changes of the spine with multilevel canal and foraminal stenosis suspected. Procedure Note Noam Wood MD - 06/13/[address] [address] EXAMINATION: CT ANGIOGRAM BRAIN AND NECK WITH CONTRAST EXAM DATE: 06/13/2024 1:36 PM REASON FOR EXAM: weakness, frequent falls COMPARISON: None TECHNIQUE: Axial images of the head and neck after injection of 80 mLIsovue-370. 3-D post processed images were reconstructed on an independent workstationwith concurrent physician supervision. Dose lowering technique was used for this study which may include, but isnot limited to, dose reduction techniques, automated exposure control, use of iterativereconstruction and ALARA (As low As Reasonably Achievable)/Image Gently techniques. FINDINGS: BRAIN: Right internal carotid artery: Within normal limits. Left internal carotid artery:Within normal limits. Right vertebral artery:Within normal limits. Left vertebral artery: Within normal limits. Basilar artery: Within normal limits. Right anterior cerebral artery: Within normal limits. Left anterior cerebral artery: Within normal limits. Anterior communicating artery: Within normal limits. Right middle cerebral artery: Within normal limits. Left middle cerebral artery: Within normal limits. Right posterior cerebral artery: Within normal limits. Left posterior cerebral artery: Within normal limits. Right posterior communicating artery: Not clearly visualized, this may bediminutive or absent. Left posterior communicating artery: Within normal limits. NECK: Right common carotid artery: Atherosclerosis without significantstenosis. Left common carotid artery: Atherosclerosis with less than 50%stenosis. Right internal carotid artery: Within normal limits. Left internal carotid artery: Within normal limits. External carotid arteries: Within normal limits. Right vertebral artery: Within normal limits. Left vertebral artery: Within normal limits. SOFT TISSUES: Within normal limits. Extensive degenerative changes of the spine withmultilevel canal and foraminal stenosis suspected. IMPRESSION: 1. No evidence of dissection, pseudoaneurysm, or significant stenosis. 2. No evidence of intracranial large vessel arterial occlusion. 3. Right posterior communicating artery not clearly visualized, this maybe diminutive or absent. 4. Per Nascet criteria, less than 50% stenosis right internal carotidartery, no significant stenosis on the left. 5. Extensive degenerative changes of the spine with extensive canal andforaminal stenosis suspected. 6. If neurologic signs are present, MRI recommended. Referred By: Interpreted By: Noam Wood MD, 06/13/2024 3:00 PM us Isma Vázquez LEGAL SUPPORT MANAGER CT Final Result * CT HEAD WO CON (06/13/2024 1:47 PM CULINARY ART TEACHER) Anatomical Region Laterality Modality Head Computed Tomogra phy 06/13/2024 2:02 PM CULINARY ART TEACHER Impressions 06/13/2024 2:05 PM CULINARY ART TEACHER IMPRESSION: 1. No CT evidence of an acute intracranial abnormality. 2. No cervical spine fracture. 3. Scattered subcortical and periventricular white matter foci demonstrating hypodensity that are nonspecific but most commonly seen in setting of chronic small vessel ischemic change. Ordered By: ISMA VÁZQUEZ Interpreted By: Donte York MD, 06/13/2024 2:02 PM Narrative 06/13/2024 2:05 PM CULINARY ART TEACHER [address] [address] EXAMINATION: CT Head, CT Cervical Spine. [id number] EXAM DATE/TIME: 06/13/2024 1:36 PM REASON FOR EXAM: fall injury COMPARISON: None available TECHNIQUE: Computed tomographic images of the head and cervical spine were obtained without intravenous contrast. A dose lowering technique was used for this procedure, which may include, but is not limited to, dose reduction technique, automated exposure control, iterative reconstruction, ALARA (As Low As Reasonably Achievable), or Image Gently techniques. FINDINGS: CT head: There is no acute intracranial hemorrhage. There is no extra-axial fluid collection. Moderate global cerebral volume loss with ex vacuo dilatation of ventricles and cerebral sulci. Scattered subcortical and periventricular white matter foci demonstrating hypodensity that are nonspecific but most commonly seen in setting of chronic small vessel ischemic change. The basal cisterns appear normal. Prior bilateral ocular lens extractions with prosthetic lens implantation. Mild arterial is chronic calcification of the cavernous segments the internal carotid arteries bilaterally. Paranasal sinuses and mastoid air cells are well aerated. No acute fracture nor destructive process of the visualized osseous structures. CT cervical spine: There is straightening of the normal cervical lordosis that is likely positional. The cervical vertebral bodies and facets are well aligned. The cervical vertebral body heights are preserved. There is 0.4 cm of anterolisthesis of C4 on C5. Vertebral disc height loss at C4-5, C5-6 and C6-7 with endplate degenerative changes at these levels. No acute fracture nor destructive process of the visualized osseous structures. Procedure Note Donte York MD - 06/13/[address] [address] EXAMINATION: CT Head, CT Cervical Spine. [id number] EXAM DATE/TIME: 06/13/2024 1:36 PM REASON FOR EXAM: fall injury COMPARISON: None available TECHNIQUE: Computed tomographic images of the head and cervical spine wereobtained without intravenous contrast. A dose lowering technique was usedfor this procedure, which may include, but is not limited to, dosereduction technique, automated exposure control, iterative reconstruction,ALARA (As Low As Reasonably Achievable), or Image Gently techniques. FINDINGS: CT head: There is no acute intracranial hemorrhage. There is noextra-axial fluid collection. Moderate global cerebral volume loss with exvacuo dilatation of ventricles and cerebral sulci. Scattered subcorticaland periventricular white matter foci demonstrating hypodensity that arenonspecific but most commonly seen in setting of chronic small vesselischemic change. The basal cisterns appear normal. Prior bilateral ocularlens extractions with prosthetic lens implantation. Mild arterial ischronic calcification of the cavernous segments the internal carotidarteries bilaterally. Paranasal sinuses and mastoid air cells are wellaerated. No acute fracture nor destructive process of the visualizedosseous structures. CT cervical spine: There is straightening of the normal cervical lordosisthat is likely positional. The cervical vertebral bodies and facets arewell aligned. The cervical vertebral body heights are preserved. There is0.4 cm of anterolisthesis of C4 on C5. Vertebral disc height loss at C4-5,C5-6 and C6-7 with endplate degenerative changes at these levels. No acutefracture nor destructive process of the visualized osseous structures. IMPRESSION: 1. No CT evidence of an acute intracranial abnormality. 2. No cervical spine fracture. 3. Scattered subcortical and periventricular white matter focidemonstrating hypodensity that are nonspecific but most commonly seen insetting of chronic small vessel ischemic change. Ordered By: ISMA VÁZQUEZ Interpreted By: Donte York MD, 06/13/2024 2:02 PM Isma Vázquez LEGAL SUPPORT MANAGER CT Final Result * CT CERV SPINE WO CON (06/13/2024 1:47 PM CULINARY ART TEACHER) Anatomical Region Laterality Modality Spine Computed Tomogra phy 06/13/2024 2:02 PM CULINARY ART TEACHER Impressions 06/13/2024 2:05 PM CULINARY ART TEACHER IMPRESSION: 1. No CT evidence of an acute intracranial abnormality. 2. No cervical spine fracture. 3. Scattered subcortical and periventricular white matter foci demonstrating hypodensity that are nonspecific but most commonly seen in setting of chronic small vessel ischemic change. Ordered By: ISMA VÁZQUEZ Interpreted By: Donte York MD, 06/13/2024 2:02 PM Narrative 06/13/2024 2:05 [address] CULINARY ART TEACHER [facility] [address] [facility], [place] [address] EXAMINATION: CT Head, CT Cervical Spine. [id number] EXAM DATE/TIME: 06/13/2024 1:36 PM REASON FOR EXAM: fall injury COMPARISON: None available TECHNIQUE: Computed tomographic images of the head and cervical spine were obtained without intravenous contrast. A dose lowering technique was used for this procedure, which may include, but is not limited to, dose reduction technique, automated exposure control, iterative reconstruction, ALARA (As Low As Reasonably Achievable), or Image Gently techniques. FINDINGS: CT head: There is no acute intracranial hemorrhage. There is no extra-axial fluid collection. Moderate global cerebral volume loss with ex vacuo dilatation of ventricles and cerebral sulci. Scattered subcortical and periventricular white matter foci demonstrating hypodensity that are nonspecific but most commonly seen in setting of chronic small vessel ischemic change. The basal cisterns appear normal. Prior bilateral ocular lens extractions with prosthetic lens implantation. Mild arterial is chronic calcification of the cavernous segments the internal carotid arteries bilaterally. Paranasal sinuses and mastoid air cells are well aerated. No acute fracture nor destructive process of the visualized osseous structures. CT cervical spine: There is straightening of the normal cervical lordosis that is likely positional. The cervical vertebral bodies and facets are well aligned. The cervical vertebral body heights are preserved. There is 0.4 cm of anterolisthesis of C4 on C5. Vertebral disc height loss at C4-5, C5-6 and C6-7 with endplate degenerative changes at these levels. No acute fracture nor destructive process of the visualized osseous structures. Procedure Note Donte York MD - 06/13/2024 [facility] [address] [place], [place] [address] EXAMINATION: CT Head, CT Cervical Spine. [id number] EXAM DATE/TIME: 06/13/2024 1:36 PM REASON FOR EXAM: fall injury COMPARISON: None available TECHNIQUE: Computed tomographic images of the head and cervical spine wereobtained without intravenous contrast. A dose lowering technique was usedfor this procedure, which may include, but is not limited to, dosereduction technique, automated exposure control, iterative reconstruction,ALARA (As Low As Reasonably Achievable), or Image Gently techniques. FINDINGS: CT head: There is no acute intracranial hemorrhage. There is noextra-axial fluid collection. Moderate global cerebral volume loss with exvacuo dilatation of ventricles and cerebral sulci. Scattered subcorticaland periventricular white matter foci demonstrating hypodensity that arenonspecific but most commonly seen in setting of chronic small vesselischemic change. The basal cisterns appear normal. Prior bilateral ocularlens extractions with prosthetic lens implantation. Mild arterial ischronic calcification of the cavernous segments the internal carotidarteries bilaterally. Paranasal sinuses and mastoid air cells are wellaerated. No acute fracture nor destructive process of the visualizedosseous structures. CT cervical spine: There is straightening of the normal cervical lordosisthat is likely positional. The cervical vertebral bodies and facets arewell aligned. The cervical vertebral body heights are preserved. There is0.4 cm of anterolisthesis of C4 on C5. Vertebral disc height loss at C4-5,C5-6 and C6-7 with endplate degenerative changes at these levels. No acutefracture nor destructive process of the visualized osseous structures. IMPRESSION: 1. No CT evidence of an acute intracranial abnormality. 2. No cervical spine fracture. 3. Scattered subcortical and periventricular white matter focidemonstrating hypodensity that are nonspecific but most commonly seen insetting of chronic small vessel ischemic change. Ordered By: ISMA VÁZQUEZ Interpreted By: Donte York MD, 06/13/2024 2:02 PM Isma Vázquez LEGAL SUPPORT MANAGER CT Final Result * PROCALCITONIN (PCT) (06/13/2024 11:58 AM CULINARY ART TEACHER) Procalcitonin <0.05 0.00 - 0.49 NG/ML 06/13/2024 6:07 [address] CULIN[address] ART TEACHER [facility] 06/13/2024 11:5 8 AM CULINARY ART TEACHER Alexandria Patricio SAWMILL RELIE[facility] WORKER LABORATORY Final Resul t [facility] [address] [place] [address], [place] [phone] * PHOSPHORUS, INORGANIC PHOSPHATE (06/13/2024 11:58 AM CULINARY ART TEACHER) PHOSPHORUS 3.3 2.5 - 4.9 MG/DL 06/13/2024 5:19 [address] CULINARY ART TEACHER [facility] 06/13/2024 11:5 8 AM CULINARY ART TEACHER us Alexandria Sood Sheng ALEXN LABORATORY Final Resul t [facility] [address] [place] [address], [place] [phone] * MAGNESIUM (06/13/2024 11:58 AM CULINARY ART TEACHER) MAGNESIUM 2.2 1.8 - 2.4 MG/DL 06/13/2024 5:19 [address] CULINARY ART TEACHER [facility] 06/13/2024 11:5 8 AM CULINARY ART TEACHER us Alexandria Patricio DAVID LABORATORY Final Resul t [facility] [address] [place] [address], [place] [phone] * PROLACTIN (06/13/2024 11:58 AM CULINARY ART TEACHER) PROLACTIN 23.3 NG/ML 06/13/2024 5:19 [address] CULINARY ART TEACHER [facility] Comment:FEMALE REFERENCE RAN GE (NON-): 4.8-23.3 06/13/2024 11:5 8 AM CULINARY ART TEACHER us Alexandria Patricio DAVID LABORATORY Final Resul t [facility] [address] [place] [address], [place] [phone] * BONE DENSITY GENERIC (04/26/2023) Anatomical Region Laterality Modality Other 04/26/2023 us [facility] Scanned SCANNING Final Resu lt * COLOGUARD ([employer]ACT [employer]) (01/23/2023 2:41 PM CDT) COLOGUARD RESULT Negative Negative [employer] (CLIA #:[id number]) Comment: NEGATIVE TEST RESULT. A negative Cologuard result indicates a low likelihood that a colorectal cancer (CRC) or advanced adenoma (adenomatous polyps with more advanced pre-malignant features) is present. The chance that a person with a negative Cologuard test has a colorectal cancer is less than 1 in 1500 (negative predictive value >99.9%) or has an advanced adenoma is less than 5.3% (negative predictive value 94.7%). These data are based on a prospective cross-sectional study of 10,000 individuals at average risk for colorectal cancer who were screened with both Cologuard and colonoscopy. (Gillian Waldron al, N Engl J Med 2014;370(14):6028-8667) The normal value (reference range) for this assay is negative. COLOGUARD RE-SCREENING RECOMMENDATION: Periodic colorectal cancer screening is an important part of preventive healthcare for asymptomatic individuals at average risk for colorectal cancer. Following a negative Cologuard result, the [place] Cancer Society and U.S. Multi-Society Task Force screening guidelines recommend a Cologuard re-screening interval of 3 years. References: [place] [employer] Guideline for Colorectal Cancer Screening: https://www.cancer.org/cancer/ugnxs-dwesua-cqctvk/glwkfmcck-nonfoyjlt-avmyykt/ac s-rec ommendations.html.; Pravin CURRAN, Hilda DOWLING, Cheikh ZHU, Colorectal Cancer Screening: Recommendations for Physicians and Patients from the U.S. Multi-Society Task Force on Colorectal Cancer Screening , Am J Gastroenterology 2017; 112:3219-3433. TEST DESCRIPTION: Composite algorithmic analysis of stool DNA-biomarkers with hemoglobin immunoassay. Quantitative values of individual biomarkers are not reportable and are not associated with individual biomarker result reference ranges. Cologuard is intended for colorectal cancer screening of adults of either sex, 45 years or older, who are at average-risk for colorectal cancer (CRC). Cologuard has been approved for use by the U.S. FDA. The performance of Cologuard was established in a cross sectional study of average-risk adults aged 50-84. Cologuard performance in patients ages 45 to 49 years was estimated by sub-group analysis of near-age groups. Colonoscopies performed for a positive result may find as the most clinically significant lesion: colorectal cancer [4.0%], advanced adenoma (including sessile serrated polyps greater than or equal to 1cm diameter) [20%] or non- advanced adenoma [31%]; or no colorectal neoplasia [45%]. These estimates are derived from a prospective cross-sectional screening study of 10,000 individuals at average risk for colorectal cancer who were screened with both Cologuard and colonoscopy. (Gillian Martel et al, N Engl J Med 2014;370(14):3607-1857.) Cologuard may produce a false negative or false positive result (no colorectal cancer or precancerous polyp present at colonoscopy follow up). A negative Cologuard test result does not guarantee the absence of CRC or advanced adenoma (pre-cancer). The current Cologuard screening interval is every 3 years. ([place] Cancer Society and U.S. Multi-Society Task Force). Cologuard performance data in a 10,000 patient pivotal study using colonoscopy as the reference method can be accessed at the following location: www.Private Practice.com/results. Additional description of the Cologuard test process, warnings and precautions can be found at www.[employer]i [employer].com. STOOL STOOL SPECIMEN / Unknown 01/23/2023 2:41 PM CDT 01/25/2023 9:15 AM CDT us Ryan Aldana DO BODY FLUIDS AND STOOLS O RDERABLES Final Result [facility] [address] [facility]) [address] [place] [address], [employer] [facility] (CLIA #:[id number]) [address] [place] [address] * HEPATITIS C ANTIBODY (07/02/2022 1:43 PM CULINARY ART TEACHER) HEPATITIS C AB NON-REACTI VE NON-REACT PHOEBE 07/05/2022 7:33 PM CULINARY ART TEACHER [facility] Comment: ANTIBODIES TO HCV NOT DETECTED. DOES NOT EXCLUDE THE POSSIBILITY OF EXPOSURE TO HCV. 07/02/2022 1:43 PM CULINARY ART TEACHER Ryan Aldana DO LABORATORY Final Re sult [facility] [address] [place] [address], [phone] from Last 3 Months or Most Recently Relevant to Health Maintenance Insurance [place] [place] [address] MEDICAID [place] Advance Directives Documents on File Type Date Recorded Patient Scrub Tech Expl anation Power of Senior Controls Technician 08/22/2019 POA * POLST (Latest Code Status on File) Date Activated Date Inactivated Comments 06/19/2024 5:28 PM 06/26/2024 3:30 PM Question Answer Comments Cardiopulmonary Resuscitatio n (CPR) If patient has no pulse and is not breathing: ATTEMPT Resuscitation CPR Medical Interventions when N OT in Cardiopulmonary Arrest (If patient is found with a pulse and/or is breathing): Selective Treatment - Do NOT Intubate Selective Treatment Options: OxygenSucti onCPAP/BIPAPIV FluidsIV Medications Documentation of discussion: Agent Under Health Care Power of Senior Controls Technician * POLST Date Activated Date Inactivated Comments 06/13/2024 5:34 PM 06/19/2024 5:19 PM Question Answer Comments Cardiopulmonary Resuscitatio n (CPR) If patient has no pulse and is not breathing: ATTEMPT Resuscitation CPR Medical Interventions when N OT in Cardiopulmonary Arrest (If patient is found with a pulse and/or is breathing): Selective Treatment - Do NOT Intubate Selective Treatment Options: OxygenSucti onCPAP/BIPAPIV FluidsIV Medications Documentation of discussion: Agent Under Health Care Power of Senior Controls Technician Healthcare Agents on File Name Relationship Healthcare Agent [facility] p Communication Lorie Ritchie Sister Health Care Agent Care Teams Fire Hydrant Operator Relationship Specialty Start Date End Date Ryan Aldana DO [address] [place] [id number] PCP - General FAMILY PRACTICE 05/31/19
--- NOTE | 2024-08-13 12:22 | ED.HEATRA ---
HPI - Head Injury General Chief complaint: Head Injury Stated complaint: head injury Time Seen by Provider: 08/13/24 12:11 Source: patient and family Mode of arrival: ambulatory Limitations: clinical condition History of Present Illness HPI Narrative: 73 years old, is patient need, had a fall at work landed backward struck the back of her head, denies any loss of consciousness or any symptoms. Her sister brought her to the ED by private car were about in a head injury. Patient had history of multiple falls of unknown etiology, currently patient denying any fever, chills, nausea, vomiting, headache, back pain or any other injuries. Related Data Allergies Allergy/AdvReac Type Severity Reaction Status Date / Time No Known Allergies Allergy Unknown Verified 08/13/24 11:23 Review of Systems Review of Systems: All systems reviewed & are unremarkable except as noted in HPI and below Exam Narrative: General appearance: Well-developed, well-nourished Skin: Normal color Head: Normocephalic, nontraumatic Eyes: Clear conjunctiva ENT: Oropharynx normal, ears normal, nose normal Neck: Supple, nontender Chest and respiratory: Airway patent, no respiratory distress, no accessory muscle use Heart: Regular rate/rhythm Abdomen: Soft, nontender, no organomegaly, quiet bowel sounds Vascular: Normal peripheral pulses, normal capillary refill. Musculoskeletal: Patient walks with funny gait, legs from each other which is her baseline. Neurologic: Alert and oriented to her name and age and situation only Course Vital Signs Vital signs: Vital Signs Temperature 36.6 C 08/13/24 11:11 Pulse Rate 55 L 08/13/24 11:11 Respiratory Rate 16 08/13/24 11:11 Blood Pressure 149/62 H 08/13/24 11:11 Pulse Oximetry 100 08/13/24 11:11 Oxygen Delivery Room Air 08/13/24 11:11 Temperature 36.6 C 08/13/24 11:11 Pulse Rate 55 L 08/13/24 11:11 Respiratory Rate 16 08/13/24 11:11 Blood Pressure 149/62 H 08/13/24 11:11 Pulse Oximetry 100 08/13/24 11:11 Oxygen Delivery Room Air 08/13/24 11:11 MDM - Head Injury MDM Narrative Medical decision making narrative: Patient the small clinic strengthening and hit the ground, history of multiple falls Vital signs are stable Physical examination is unremarkable CT head and CT cervical spine without contrast showed no acute abnormalities The pt was discharged to home.the pt,s condition upon discharge was fair,education was provided to the pt in reference to the final impression,discharge study results,treatment,prognosis and need for follow up . Imaging Data Radiologist's impression: Impressions Cervical Spine CT 08/13/24 12:43 Impression: No fracture. 3 mm anterolisthesis of C3 over C4. 5 mm anterolisthesis of C4-C5. Moderate to advanced degenerative spondylosis, as above. Head CT 08/13/24 12:46 Impression: No intracranial hemorrhage, mass, or acute infarct. Atrophy and chronic white matter changes, as above. Critical Care Time Critical Care Time Critical Care Time: No Discharge Plan Discharge Clinical Impression: Closed head injury Patient Disposition: Home Condition: Stable Instructions: Head Injury (ED) Additional Instructions: Return if symptoms are worsening , call your family physician for appointment, take Tylenol as as needed for aches and pain, continue home medications. Patient Language: Turkmen Follow-up/Referrals: Katya,DO Ryan [Primary Care Provider] -
--- OUTSIDE RECORDS SUMMARY | 2024-08-13 13:32 | XMS_ITS | Encounter Summary ---
Author Organization [facility] Address [facility] [place] [address] Care Team Providers Care Wood Mill Supervisor Name Role Phone Ryan Aldana DO Primary Care Provider + Tati Mathews RN Unavailable [phone] Encounter Details Date Type Department Care Team (Late Contact Info) Description 04/28/2023 Kodablet Message Enc [facility] Medical Group Family & Internal Medicine [facility] [address] [place] [address] Ryan Aldana DO [address] [place] [address] Mammogram Results Social History Tobacco [...] AM CDT Legal Sex Female 12:45 PM ADVANCED PRACTICE REGISTERED NURSE Gender Identity Female 11/21/2023 7:23 AM CDT Sexual Orientation Straight 11/21/2023 7: 23 AM CDT documented as of this encounter Plan of Treatment Upcoming Encounters Date Type Department Care Team (Late st Contact Info) Description 09/21/2024 10:20 AM CDT Laboratory Only [facility] Family & Internal [facility] [address] [place] [address] Ryan Aldana DO [address] [place] [address] 09/27/2024 9:00 AM CDT Office Visit [facility] Family & Internal [facility] [address] [place] [address] Ryan Aldana, [address] [place] [address] documented as of this encounter Visit Diagnoses Not on filedocumented in this encounter Additional Health Concerns Infection Onset Date Last Indicated Resolved Time COVID-19 Rule Out 06/13/2024 06/13/2024 06/13/2024 9:10 PM ADVANCED PRACTICE REGISTERED NURSE COVID-19 Rule Out 06/16/2024 06/16/2024 06/16/2024 9:49 PM ADVANCED PRACTICE REGISTERED NURSE Assessment Noted Time PHQ-9 Depression Total Score: 0 05/31/19 11:03 AM ADVANCED PRACTICE REGISTERED NURSE documented as of this encounter Care Teams Wood Mill Supervisor Relationship Specialty Start Date End Date Ryan Aldana DO [address] [place] [id number] PCP - General FAMILY PRACTICE 05/31/19 Tati Mathews, RN [address] [place] [address] C D Area Supervisor (Ambulatory) REGISTERED NURSE 06/15/2402/23 documented as of this encounter
--- OUTSIDE RECORDS SUMMARY | 2024-08-13 13:32 | XMS_ITS | Encounter Summary ---
Author Organization [facility] Address [facility] [place] [address] Care Team Providers Care Payroll Auditor Name Role Phone Ryan Aldana DO Primary Care Provider + Reason for Visit * Reason Onset Date Comments Information 08/13/2024 Encounter Details Date Type Department Care Team (Late st Contact Info) Description 08/13/2024 Telephone [facility] Medical Group Family & Internal Medicine [facility] [address] [place] [address] Ryan Aldana DO [address] [place] [address] Information Social History Tobacco Use Types Packs/Day Years Used Date Smoking Tobacco: Never Passive Smoke Exposure: Never Smokeless Tobacco: Never Comments:na Alcohol Use Standard Drinks/Week Comments Never 0 (1 standard drink = 0.6 oz pur e alcohol) [facility] Utilities Answer Date Recorded In the past 12 months has [facility] [employer] gas, oil, or water [employer] threatened to shut off services in your [...] any time in the past 12 m [facility], were you homeless or living in a fci (including now)? 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 documented in this encounter Plan of Treatment Upcoming Encounters Date Type Department Care Team (Late st Contact Info) Description 09/21/2024 10:20 AM CDT Laboratory Only [facility] Family & Internal Medicine [place] [address] [place] [address] Ryan Aldana, [facility] [place] [address] 09/27/2024 9:00 AM CDT Office Visit [facility] Family & Internal Medicine - [place] [address] [place] [address] [place] [address] [place] [address] documented as of this encounter Visit Diagnoses Not on filedocumented in this encounter Additional Health Concerns Assessment Noted Time PHQ-9 Depression Total Score: 0 05/31/19 20 11:03 AM KNIFE SETTER ASSEMBLER documented as of this encounter Care Teams Payroll Auditor Relationship Specialty Start Date End Date Ryan Aldana DO [address] [place] [address] PCP - General FAMILY PRACTICE 05/31/19 documented as of this encounter
--- OUTSIDE RECORDS SUMMARY | 2024-08-13 13:32 | XMS_ITS | CONTINUITY OF CARE DOCUMENT ---
Author Name oscar moore Address Unknown Organization [facility] Address [address] [facility] [address] [place] [address] Phone [phone] Care Team Providers Care Carriage Operator Name Role Phone Martin Head MD Unavailable Martin Head MD Unavailable INSURANCE PROVIDERS Payer name Policy type / Coverage type [place] [employer] party ID [facility] Other [id number]
--- OUTSIDE RECORDS SUMMARY | 2024-08-13 13:32 | XMS_ITS | Encounter Summary ---
Author Organization [facility] Address [facility] [place] [address] Care Team Providers Care Intensive Care Medicine Specialist Name Role Phone Ryan Aldana DO Primary Care Provider + Tati Mathews RN Unavailable [phone] Encounter Details Date Type Department Care Team (Late Contact Info) Description 05/03/2023 Decide.comt Message Enc [facility] Medical Group Family & Internal Medicine [facility] [address] [place] [address] Ryan Aldana DO [address] [place] [address] DEXA Results Social History Tobacco [...] AM CDT Legal Sex Female 12:45 PM COMBER TENDER Gender Identity Female 11/21/2023 7:23 AM CDT Sexual Orientation Straight 11/21/2023 7: 23 AM CDT documented as of this encounter Plan of Treatment Upcoming Encounters Date Type Department Care Team (Late st Contact Info) Description 09/21/2024 10:20 AM CDT Laboratory Only [facility] Family & Internal [facility] [address] [place] [address] Ryan Aldana DO [address] [place] [address] 09/27/2024 9:00 AM CDT Office Visit [facility] Family & Internal [facility] [address] [place] [address] Ryan Aldana, [address] [place] [address] documented as of this encounter Visit Diagnoses Not on filedocumented in this encounter Additional Health Concerns Infection Onset Date Last Indicated Resolved Time COVID-19 Rule Out 06/13/2024 06/13/2024 06/13/2024 9:10 PM COMBER TENDER COVID-19 Rule Out 06/16/2024 06/16/2024 06/16/2024 9:49 PM COMBER TENDER Assessment Noted Time PHQ-9 Depression Total Score: 0 05/31/19 11:03 AM COMBER TENDER documented as of this encounter Care Teams Intensive Care Medicine Specialist Relationship Specialty Start Date End Date Ryan Aldana DO [address] [place] [address] PCP - General FAMILY PRACTICE 05/31/19 Tati Mathews, RN [address] [place] [address] Blending Machine Feeder (Ambulatory) REGISTERED NURSE 06/15/2402/23 documented as of this encounter
--- OUTSIDE RECORDS SUMMARY | 2024-08-13 13:33 | XMS_ITS | Clinical Summary ---
Author Organization [facility] Address [facility] [place] [address] Care Team Providers Care Counseling Director Name Role Phone ShilpagtmelissaRyan Leonardo CONNER Primary [...] Type Department Care Team Description 08/13/2024 Telephone [facility] [address] [address] Ryan Aldana, DO Information 07/09/2024 Patient Outreach [facility] [address] [phone] Tati Mathews, [facility] Hospital Follow Up (Tcm #1) 07/01/2024 9:00 AM TALENT DEVELOPMENT SPECIALIST Home Care Visit [address] [place], [place] [id number] Elza Hendricks RN SN NON ADMIT SOC 06/28/2024 10:40 AM TALENT DEVELOPMENT SPECIALIST Office Visit [facility] [address] [phone] Ryan Aldana, DO TCM ([facility] & [facility] rehab 06/19-06/26 ; physical deconditioning) 06/28/2024 Travel 06/27/2024 Scan [employer] INFO SRVCS Scanned, Doc [facility] 06/27/2024 Patient Outreach [facility] [address] [address] Tati Mathews, RN TCM ([facility] 06/13-06/19, h swing bed 06/19-06/26/2024) 06/27/[address] [address] Ryan Aldana, DO Advice 06/26/[address] [place], [place] [phone] Ryan Aldana, DO Advise 06/26/2024 Telephone [facility] Home Care [address] [place] [address] [place] [address] Ryan Aldana, DO Advise 06/26/2024 Telephone [facility] [address] [place] [address] Ryan Aldana, DO Information 06/22/2024 Scan [employer] INFO SRVCS Scanned, Doc [facility] 06/19/2024 5:19 PM TALENT DEVELOPMENT SPECIALIST - 06/26/2024 1:30 PM TALENT DEVELOPMENT SPECIALIST Hospital Encounter [facility] Med/Surg [id number] [place] [address] Silvina Ortiz MD Harris, Michael, MD Discharge Disposition: Home with Home Health Care 06/19/2024 Travel 06/19/2024 Telephone [facility] [address] [place] [address] Teresa Orozco, bath steward (Swing bed referral to [facility] from [facility]/) 06/18/2024 Telephone [facility] [address] [place] [address] Ryan Aldana, DO Information 06/15/2024 Telephone [facility] [address] [place] [address] Ryan Aldana, DO Information 06/15/2024 Patient Outreach [facility] [address] [place] [address] Tati Mathews, [facility] Hospital Follow Up 06/13/2024 11:48 AM TALENT DEVELOPMENT SPECIALIST - 06/19/2024 3:57 PM TALENT DEVELOPMENT SPECIALIST Hospital Encounter [facility] [place] [address] Anand Monzon MD D'Souza, Dominique C, MD Spencer, Vincent J, MD Altered Mental Status Discharge Disposition: Swing Bed 06/13/2024 Scan [facility] INFO SRVCS Scanned, [facility] 06/13/2024 Travel 06/13/2024 Telephone [facility] [address] [address] Ryan Aldana, Advice 06/04/2024 9:40 AM TALENT DEVELOPMENT SPECIALIST Office Visit [facility] [address] [address] Ryan Aldana, Hyperlipidemia; Depression 06/04/2024 [...] (Generic) 12/29/2004 Tdap (Generic) 05/23/2018 Zoster (Zostavax) 80236 Unt/0.65Ml 09/26/2017 Family History Medical History Relation [...] drink = 0.6 oz pur e alcohol) [facility] Utilities Answer Date Recorded In the past [...] any time in the past 12 m [facility], were you homeless or living in a nursing home (including now)? No 06/14/2024 Comments No Sex and Gender Information Value Date Recorded Sex Assigned at Female 11/21/2023 7:23 AM CDT Legal Sex Female 12:45 PM TALENT DEVELOPMENT SPECIALIST Gender Identity Female 11/21/2023 7:23 AM CDT Sexual Orientation Straight 11/21/2023 7: 23 AM CDT Last Filed Vital Signs Vital Sign Reading Time Taken Comments Blood Pressure 134/62 06/28/2024 11:12 AM TALENT DEVELOPMENT SPECIALIST Pulse 46 06/28/2024 11:12 AM TALENT DEVELOPMENT SPECIALIST Temperature 36.8 C (98.2 F) 06/28/2024 11:12 AM TALENT DEVELOPMENT SPECIALIST Respiratory Rate 16 06/28/2024 11:12 AM TALENT DEVELOPMENT SPECIALIST Oxygen Saturation 99% 06/28/2024 11:12 AM TALENT DEVELOPMENT SPECIALIST Inhaled Oxygen Concentration - - Weight 64.7 kg (142 lb 9.6 oz) 06/28/2024 11:12 AM TALENT DEVELOPMENT SPECIALIST Height 147.3 cm (4' 10 ) 06/28/2024 11:12 AM TALENT DEVELOPMENT SPECIALIST Body Mass Index 29.8 06/28/2024 11:12 AM TALENT DEVELOPMENT SPECIALIST Plan of Treatment Upcoming Encounters Date Type Department Care Team (Late st Contact Info) Description 09/21/2024 10:20 AM CDT Laboratory Only [facility] [address] [phone] Ryan Aldana DO [address] [place] [id number] 09/27/2024 9:00 AM CDT Office Visit [facility] [address] [phone] Ryan Aldana DO [address] [place] [address] Health Maintenance Due Date Last Done Comments Annual Medicare Wellness Visit 2013 RSV Immunization or 60+ Years (1 - 1-dose 75+ series) 11/09/2023 PHQ-2 (Physician [employer]) 05/02/2024 06/20/2023 Dexa Scan (General) 04/26/2025 04/26/2023, [...] KILPATRICK DOCKED DEVICE Routine 06/26/2024 11:16 AM TALENT DEVELOPMENT SPECIALIST POCT GLUCOSE - KILPATRICK DOCKED DEVICE Routine 06/26/2024 7:29 AM TALENT DEVELOPMENT SPECIALIST POCT GLUCOSE - KILPATRICK DOCKED DEVICE Routine 06/25/2024 8:10 PM TALENT DEVELOPMENT SPECIALIST POCT GLUCOSE - KILPATRICK DOCKED DEVICE Routine 06/25/2024 4:45 PM TALENT DEVELOPMENT SPECIALIST POCT GLUCOSE - KILPATRICK DOCKED DEVICE Routine 06/25/2024 11:23 AM TALENT DEVELOPMENT SPECIALIST POCT GLUCOSE - KILPATRICK DOCKED DEVICE Routine 06/25/2024 7:35 AM TALENT DEVELOPMENT SPECIALIST POCT GLUCOSE - KILPATRICK DOCKED DEVICE Routine 06/24/2024 7:53 PM TALENT DEVELOPMENT SPECIALIST POCT GLUCOSE - KILPATRICK DOCKED DEVICE Routine 06/24/2024 4:55 PM TALENT DEVELOPMENT SPECIALIST POCT GLUCOSE - KILPATRICK DOCKED DEVICE Routine 06/24/2024 11:40 AM TALENT DEVELOPMENT SPECIALIST POCT GLUCOSE - KILPATRICK DOCKED DEVICE Routine 06/24/2024 7:01 AM TALENT DEVELOPMENT SPECIALIST POCT GLUCOSE - KILPATRICK DOCKED DEVICE Routine 06/23/2024 8:54 PM TALENT DEVELOPMENT SPECIALIST POCT GLUCOSE - KILPATRICK DOCKED DEVICE Routine 06/23/2024 4:34 PM TALENT DEVELOPMENT SPECIALIST POCT GLUCOSE - KILPATRICK DOCKED DEVICE Routine 06/23/2024 11:35 AM TALENT DEVELOPMENT SPECIALIST POCT GLUCOSE - KILPATRICK DOCKED DEVICE Routine 06/23/2024 8:06 AM TALENT DEVELOPMENT SPECIALIST POCT GLUCOSE - KILPATRICK DOCKED DEVICE Routine 06/22/2024 4:45 PM TALENT DEVELOPMENT SPECIALIST POCT GLUCOSE - KILPATRICK DOCKED DEVICE Routine 06/22/2024 11:24 AM TALENT DEVELOPMENT SPECIALIST POCT GLUCOSE - KILPATRICK DOCKED DEVICE Routine 06/22/2024 7:32 AM TALENT DEVELOPMENT SPECIALIST POCT GLUCOSE - KILPATRICK DOCKED DEVICE Routine 06/21/2024 4:16 PM TALENT DEVELOPMENT SPECIALIST POCT GLUCOSE - KILPATRICK DOCKED DEVICE Routine 06/21/2024 11:36 AM TALENT DEVELOPMENT SPECIALIST POCT GLUCOSE - KILPATRICK DOCKED DEVICE Routine 06/21/2024 7:52 AM TALENT DEVELOPMENT SPECIALIST COMPREHENSIVE METABOLIC PANEL Routine 06/21/2024 5:31 AM TALENT DEVELOPMENT SPECIALIST CBC W/DIFF AUTOMATED Routine 06/21/2024 5:31 AM TALENT DEVELOPMENT SPECIALIST POCT GLUCOSE - KILPATRICK DOCKED DEVICE Routine 06/20/2024 11:32 AM TALENT DEVELOPMENT SPECIALIST POCT GLUCOSE - KILPATRICK DOCKED DEVICE Routine 06/20/2024 7:16 AM TALENT DEVELOPMENT SPECIALIST COMPREHENSIVE METABOLIC PANEL Routine 06/20/2024 6:12 AM TALENT DEVELOPMENT SPECIALIST CBC W/DIFF AUTOMATED Routine 06/20/2024 6:12 AM TALENT DEVELOPMENT SPECIALIST POCT GLUCOSE - KILPATRICK DOCKED DEVICE Routine 06/19/2024 7:48 PM TALENT DEVELOPMENT SPECIALIST POCT GLUCOSE - KILPATRICK DOCKED DEVICE Routine 06/19/2024 5:29 PM TALENT DEVELOPMENT SPECIALIST POCT GLUCOSE - KILPATRICK DOCKED DEVICE Routine 06/19/2024 11:22 AM TALENT DEVELOPMENT SPECIALIST COMPREHENSIVE METABOLIC PANEL Routine 06/19/2024 7:11 AM TALENT DEVELOPMENT SPECIALIST CBC W/DIFF AUTOMATED Routine 06/19/2024 7:11 AM TALENT DEVELOPMENT SPECIALIST POCT GLUCOSE - KILPATRICK DOCKED DEVICE Routine 06/19/2024 5:34 AM TALENT DEVELOPMENT SPECIALIST POCT GLUCOSE - KILPATRICK DOCKED DEVICE Routine 06/18/2024 3:19 PM TALENT DEVELOPMENT SPECIALIST POCT GLUCOSE - KILPATRICK DOCKED DEVICE Routine 06/18/2024 11:06 AM TALENT DEVELOPMENT SPECIALIST COMPREHENSIVE METABOLIC PANEL Routine 06/18/2024 6:55 AM TALENT DEVELOPMENT SPECIALIST CBC W/DIFF AUTOMATED Routine 06/18/2024 6:55 AM TALENT DEVELOPMENT SPECIALIST CK (CPK) Routine 06/18/2024 6:55 AM TALENT DEVELOPMENT SPECIALIST POCT GLUCOSE - KILPATRICK DOCKED DEVICE Routine 06/18/2024 5:23 AM TALENT DEVELOPMENT SPECIALIST POCT GLUCOSE - KILPATRICK DOCKED DEVICE Routine 06/17/2024 8:46 PM TALENT DEVELOPMENT SPECIALIST URINE BACTERIA CULTURE Routine 5:03 PM TALENT DEVELOPMENT SPECIALIST HC URINALYSIS AUTO W/O MICRO Routine 06/17/2024 5:03 PM TALENT DEVELOPMENT SPECIALIST XR CHEST PORTABLE Today 06/17/2024 4:2 0 PM TALENT DEVELOPMENT SPECIALIST POCT GLUCOSE - KILPATRICK DOCKED DEVICE Routine 06/17/2024 3:53 PM TALENT DEVELOPMENT SPECIALIST POCT GLUCOSE - KILPATRICK DOCKED DEVICE Routine 06/17/2024 12:02 PM TALENT DEVELOPMENT SPECIALIST COMPREHENSIVE METABOLIC PANEL Routine 06/17/2024 7:47 AM TALENT DEVELOPMENT SPECIALIST CBC W/DIFF AUTOMATED Routine 06/17/2024 7:47 AM TALENT DEVELOPMENT SPECIALIST CK (CPK) Routine 06/17/2024 7:47 AM TALENT DEVELOPMENT SPECIALIST POCT GLUCOSE - KILPATRICK DOCKED DEVICE Routine 06/17/2024 6:01 AM TALENT DEVELOPMENT SPECIALIST POCT GLUCOSE - KILPATRICK DOCKED DEVICE Routine 06/16/2024 8:58 PM TALENT DEVELOPMENT SPECIALIST CORONAVIRUS (COVID 19) Routine 8:35 PM TALENT DEVELOPMENT SPECIALIST INFLUENZA A & B Routine 06/16/2024 8:35 PM TALENT DEVELOPMENT SPECIALIST POCT GLUCOSE - KILPATRICK DOCKED DEVICE Routine 06/16/2024 4:57 PM TALENT DEVELOPMENT SPECIALIST POCT GLUCOSE - KILPATRICK DOCKED DEVICE Routine 06/16/2024 12:00 PM TALENT DEVELOPMENT SPECIALIST CK (CPK) Routine 06/16/2024 7:48 AM TALENT DEVELOPMENT SPECIALIST CBC W/DIFF AUTOMATED Routine 06/16/2024 7:48 AM TALENT DEVELOPMENT SPECIALIST COMPREHENSIVE METABOLIC PANEL Routine 06/16/2024 7:48 AM TALENT DEVELOPMENT SPECIALIST POCT GLUCOSE - KILPATRICK DOCKED DEVICE Routine 06/16/2024 6:20 AM TALENT DEVELOPMENT SPECIALIST POCT GLUCOSE - KILPATRICK DOCKED DEVICE Routine 06/15/2024 8:36 PM TALENT DEVELOPMENT SPECIALIST POCT GLUCOSE - KILPATRICK DOCKED DEVICE Routine 06/15/2024 2:54 PM TALENT DEVELOPMENT SPECIALIST IR LUMB PUNCTURE DIAGNOSTIC Today 06/15/2024 2:23 PM TALENT DEVELOPMENT SPECIALIST SYPHILIS RPR VDRL CSF STAT 06/15/2024 1:15 PM TALENT DEVELOPMENT SPECIALIST CULTURE, CSF W/ GRAM STAIN STAT 06/15/2024 1:15 PM TALENT DEVELOPMENT SPECIALIST MENINGITIS/ENCEPHALITIS PANEL CSF STAT 06/15/2024 1:15 PM TALENT DEVELOPMENT SPECIALIST CELL COUNT, CSF Routine 06/15/2024 1:15 PM TALENT DEVELOPMENT SPECIALIST GLUCOSE CSF STAT 06/15/2024 1:15 PM TALENT DEVELOPMENT SPECIALIST PROTEIN TOTAL CSF STAT 06/15/2024 1:1 5 PM TALENT DEVELOPMENT SPECIALIST HSV, TYPE 1&2 DNA, QN RT PCR STAT 06/15/2024 1:13 PM TALENT DEVELOPMENT SPECIALIST POCT GLUCOSE - KILPATRICK DOCKED DEVICE Routine 06/15/2024 10:53 AM TALENT DEVELOPMENT SPECIALIST PARTIAL THROMBOPLASTIN TIME,PTT Routine 06/15/2024 10:21 AM TALENT DEVELOPMENT SPECIALIST PROTHROMBIN TIME, VENOUS STAT 06/15/2024 10:21 AM TALENT DEVELOPMENT SPECIALIST CK (CPK) Routine 06/15/2024 8:37 AM TALENT DEVELOPMENT SPECIALIST CBC W/DIFF AUTOMATED Routine 06/15/2024 8:37 AM TALENT DEVELOPMENT SPECIALIST COMPREHENSIVE METABOLIC PANEL Routine 06/15/2024 8:37 AM TALENT DEVELOPMENT SPECIALIST CYTOLOGY GENERIC STAT 06/15/2024 12:0 0 AM TALENT DEVELOPMENT SPECIALIST XR CHEST PA+LAT TIMED 06/14/2024 7:16 AM TALENT DEVELOPMENT SPECIALIST PARTIAL THROMBOPLASTIN TIME,PTT STAT 06/14/2024 6:21 AM TALENT DEVELOPMENT SPECIALIST PROTHROMBIN TIME, VENOUS STAT 06/14/2024 6:21 AM TALENT DEVELOPMENT SPECIALIST CK (CPK) STAT 06/14/2024 6:21 AM TALENT DEVELOPMENT SPECIALIST COMPREHENSIVE METABOLIC PANEL STAT 06/14/2024 6:21 AM TALENT DEVELOPMENT SPECIALIST CBC W/DIFF AUTOMATED STAT 06/14/2024 6:21 AM TALENT DEVELOPMENT SPECIALIST EEG ROUTINE STAT 06/14/2024 6:04 AM TALENT DEVELOPMENT SPECIALIST MRI BRAIN WO CON STAT 06/13/2024 10:1 1 PM TALENT DEVELOPMENT SPECIALIST RESPIRATORY PCR PANEL 2 STAT 06/13/19 25 7:54 PM TALENT DEVELOPMENT SPECIALIST URINE BACTERIA CULTURE STAT 7:54 PM TALENT DEVELOPMENT SPECIALIST AMMONIA Routine 06/13/2024 7:54 PM TALENT DEVELOPMENT SPECIALIST POCT GLUCOSE - KILPATRICK DOCKED DEVICE Routine 06/13/2024 5:31 PM TALENT DEVELOPMENT SPECIALIST VITAMIN B-12 Routine 06/13/2024 5:09 PM TALENT DEVELOPMENT SPECIALIST TSH W/REFLEX Routine 06/13/2024 5:09 PM TALENT DEVELOPMENT SPECIALIST TROPONIN, QUANT STAT 06/13/2024 5:09 PM TALENT DEVELOPMENT SPECIALIST HC MYCOPLASMA AB-90 Routine 06/13/2024 5 :08 PM TALENT DEVELOPMENT SPECIALIST XR CHEST PORTABLE STAT 06/13/2024 5:0 6 PM TALENT DEVELOPMENT SPECIALIST BLOOD GAS, ARTERIAL LAB STAT 06/13/19 5:06 PM TALENT DEVELOPMENT SPECIALIST HC INFECT AGENT DETECT OPTICAL STAT 06/13/2024 4:34 PM TALENT DEVELOPMENT SPECIALIST LEGIONELLA AG URINE STAT 06/13/2024 4 :34 PM TALENT DEVELOPMENT SPECIALIST DRUG SCREEN RAPID STAT 06/13/2024 4:3 4 PM TALENT DEVELOPMENT SPECIALIST HC URINALYSIS AUTO W/O MICRO STAT 06/13/2024 4:34 PM TALENT DEVELOPMENT SPECIALIST ECG 12-LEAD Routine 06/13/2024 1:58 PM TALENT DEVELOPMENT SPECIALIST CT CERV SPINE WO CON STAT 06/13/2024 1:47 PM TALENT DEVELOPMENT SPECIALIST CTA HEAD+NECK STAT 06/13/2024 1:47 PM TALENT DEVELOPMENT SPECIALIST CT HEAD WO CON STAT 06/13/2024 1:47 PM TALENT DEVELOPMENT SPECIALIST XR CHEST PORTABLE STAT 06/13/2024 12: 29 PM TALENT DEVELOPMENT SPECIALIST PROLACTIN Routine 06/13/2024 11:58 AM TALENT DEVELOPMENT SPECIALIST PROCALCITONIN (PCT) Routine 06/13/2024 1 1:58 AM TALENT DEVELOPMENT SPECIALIST PHOSPHORUS, INORGANIC PHOSPHATE Routine 06/13/2024 11:58 AM TALENT DEVELOPMENT SPECIALIST MAGNESIUM Routine 06/13/2024 11:58 AM TALENT DEVELOPMENT SPECIALIST CK (CPK) Routine 06/13/2024 11:58 AM TALENT DEVELOPMENT SPECIALIST PARTIAL THROMBOPLASTIN TIME,PTT STAT 06/13/2024 11:58 AM TALENT DEVELOPMENT SPECIALIST PROTHROMBIN TIME, VENOUS STAT 06/13/2024 11:58 AM TALENT DEVELOPMENT SPECIALIST TROPONIN, QUANT STAT 06/13/2024 11:58 AM TALENT DEVELOPMENT SPECIALIST COMPREHENSIVE METABOLIC PANEL STAT 06/13/2024 11:58 AM TALENT DEVELOPMENT SPECIALIST CBC W/DIFF AUTOMATED STAT 06/13/2024 11:58 AM TALENT DEVELOPMENT SPECIALIST POCT GLUCOSE - KILPATRICK DOCKED DEVICE Routine 06/13/2024 11:20 AM TALENT DEVELOPMENT SPECIALIST BONE DENSITY GENERIC (SCAN ORDER) 04/26/2023 COLOGUARD (EXACT SCIENCE) Routine 01/23/2023 2:41 PM CDT Screening for malignant neoplasm of colon HEPATITIS C ANTIBODY Routine 07/02/2022 1:43 PM TALENT DEVELOPMENT SPECIALIST Screening for lipid disorders Screening for endocrine, metabolic and immunity disorder Need for hepatitis C screening test Annual physical exam from Last 3 Months or Most Recently Relevant to Health Maintenance Results * POCT glucose (06/26/2024 11:16 AM TALENT DEVELOPMENT SPECIALIST) Only the most recent of42 resultswithin the time period is included. GLUCOSE POC 77 70 - 110 mg/dL 06/26/2024 11:31 AM TALENT DEVELOPMENT SPECIALIST [facility] 06/26/2024 11:1 6 AM TALENT DEVELOPMENT SPECIALIST Mode Miles MD POCT ORDERABLES - DEVICE Final Result [facility] [address] [place] [address], * (ABNORMAL) COMPREHENSIVE METABOLIC PANEL (06/21/2024 5:31 AM TALENT DEVELOPMENT SPECIALIST) Only the most recent of9 resultswithin the time period is included. GLUCOSE 103(H) 70 - 99 MG/DL 06/21/2024 6:11 AM TALENT DEVELOPMENT SPECIALIST [facility] BUN 18 7 - 18 MG/DL 06/21/2024 6:11 AM TALENT DEVELOPMENT SPECIALIST [facility] CREATININE S/P/B 0.76 0.55 - 1.02 MG/DL 06/21/2024 6:11 AM [facility] SODIUM S/P/B 142 136 - 145 MMOL/L 06/21/2024 6:11 AM [facility] POTASSIUM S/P/B 3.6 3.5 - 5.1 MMOL/L 06/21/2024 6:11 AM [facility] CHLORIDE S/P/B 103 100 - 108 MMOL/L 06/21/2024 6:11 AM [facility] CO2 30.4 21 - 32 MMOL/L 06/21/2024 6:11 AM [facility] CALCIUM S/P/B 8.8 8.5 - 10.1 MG/DL 06/21/2024 6:11 AM [facility] BILIRUBIN TOTAL S/P/B 0.5 0.2 - 1.2 MG/DL 06/21/2024 6:11 AM [facility] TOTAL PROTEIN S/P/B 6.6 6.4 - 8.2 G/DL 06/21/2024 6:11 AM [facility] ALBUMIN S/P/B 2.7(L) 3.4 - 5.0 G/DL 06/21/2024 6:11 AM [facility] AST 34 15 - 37 U/L 06/21/2024 6:11 AM [facility] ALT 52 14 - 55 U/L 06/21/2024 6:11 AM [facility] ALKALINE PHOSPHATASE S/P/B 53 50 - 136 U/L 06/21/2024 6:11 AM [facility] ANION GAP 8.6 5 - 15 MMOL/L 06/21/2024 6:11 AM [facility] BUN CREATININE RATIO 23.7 6 - 26 06/21/2024 6:11 AM [facility] A/G RATIO 0.7(L) 1.0 - 2.0 RATIO 06/21/2024 6:11 AM [facility] GFR ESTIMATE 82(L) >90 ML/MIN/1.7 3 M2 06/21/2024 6:11 AM [facility] Comment: NOTE: eGFR is not calculated for patients <18 years of age. This is an estimated GFR calculation using the new CKD EPI creatinine equation without race and so does not require a correction factor for race. This estimated GFR should not be used for calculating drug doses. 06/21/2024 5:31 AM TALENT DEVELOPMENT SPECIALIST Karo Cross MD LABORATORY Final Res ult [facility] [address] [place] [address], * (ABNORMAL) CBC W/DIFF AUTOMATED (06/21/2024 5:31 AM TALENT DEVELOPMENT SPECIALIST) Only the most recent of9 resultswithin the time period is included. WBC 7.39 4.4 - 11.0 x10'3/uL 06/21/2024 5:57 AM [facility] RBC 3.50(L) 4.50 - 5.10 x10'6/uL 06/21/2024 5:57 AM [facility] HGB 10.8(L) 12.3 - 15.3 G/DL 06/21/2024 5:57 AM [facility] HCT 32.6(L) 35.9 - 44.6 % 06/21/2024 5:57 AM [facility] MCV 93.1 80.0 - 96.0 FL 06/21/2024 5:57 AM [facility] MCH 30.9 25.3 - 30.9 PG 06/21/2024 5:57 AM [facility] MCHC 33.1 31.0 - 34.1 G/DL 06/21/2024 5:57 AM [facility] RDW 12.1(L) 12.4 - 15.1 % 06/21/2024 5:57 AM [facility] PLT 240 151 - 353 x10'3/uL 06/21/2024 5:57 AM [facility] MPV 9.3(L) 9.6 - 12.0 FL 06/21/2024 5:57 AM [facility] RBC MORPHOLOGY NORMAL 06/21/2024 5:57 AM [facility] PLT MORPH. NORMAL 06/21/2024 5:57 AM [facility] WBC MORPHOLOGY NORMAL 06/21/2024 5:57 AM [facility] LYMPHOCYTES % 20.3 15.8 - 45.0 % 06/21/2024 5:57 AM [facility] NEUTROPHILS % 66.8 42.1 - 71.9 % 06/21/2024 5:57 AM [facility] MONOCYTES % 10.0 5.7 - 12.5 % 06/21/2024 5:57 AM [facility] EOSINOPHILS 2.0 0.0 - 5.6 % 06/21/2024 5:57 AM [facility] BASOPHILS 0.5 0.0 - 1.3 % 06/21/2024 5:57 AM [facility] ABS. NEUTROPHILS 4.93 1.40 - 6.00 x10'3/uL 06/21/2024 5:57 AM [facility] IMMATURE GRANS % 0.4 0.0 - 0.5 % 06/21/2024 5:57 AM TALENT DEVELOPMENT SPECIALIST [facility] ABS. LYMPHOCYTES 1.50 0.80 - 4.70 x10'3/uL 06/21/2024 5:57 AM TALENT DEVELOPMENT SPECIALIST [facility] 06/21/2024 5:31 AM TALENT DEVELOPMENT SPECIALIST Karo rCoss MD LABORATORY Final Res ult Performing Organization Address City/[facility]/ZIP Co de Phone Number [facility] [address] [place] [address], [place] [phone] * CK (CPK) (06/18/2024 6:55 AM TALENT DEVELOPMENT SPECIALIST) Only the most recent of6 resultswithin the time period is included. CPK 180 21 - 215 U/L 06/18/2024 8:00 AM TALENT DEVELOPMENT SPECIALIST [facility] 06/18/2024 6:55 AM TALENT DEVELOPMENT SPECIALIST Papa Spencer MD LABORATORY Final Result Performing Organization Address City/[facility]/ZIP Co de Phone Number [facility] [address] [place] [address], [place] [phone] * (ABNORMAL) URINALYSIS (06/17/2024 5:03 PM TALENT DEVELOPMENT SPECIALIST) Only the most recent of2 resultswithin the time period is included. SPECIMEN TYPE URINE CLEAN CATCH 06/17/2024 5:35 PM TALENT DEVELOPMENT SPECIALIST [facility] COLOR (U) YELLOW 06/17/2024 6:00 PM TALENT DEVELOPMENT SPECIALIST [facility] TRANSPARENCY TURBID 06/17/2024 6:00 PM TALENT DEVELOPMENT SPECIALIST [facility] SPECIFIC GRAVITY (U) 1.013 1.001 - 1.030 06/17/2024 6:00 PM TALENT DEVELOPMENT SPECIALIST [facility] U PH 7.0 5.0 - 9.0 06/17/2024 6:00 PM [facility] LEUKOCYTES (U) 500(A) NEGATIVE 06/17/2024 6:00 PM [facility] NITRITES NEGATIVE NEGATIVE 06/17/2024 6:00 PM [facility] PROTEIN RANDOM (U) 20 <30 MG/DL 06/17/2024 6:00 PM [facility] GLUCOSE (U) NORMAL NORMAL MG/DL 06/17/2024 6:00 PM [facility] KETONES MG/DL (U) NEGATIVE NEGATIVE MG/DL 06/17/2024 6:00 PM [facility] UROBILINOGEN 2.0(A) NORMAL MG/DL 06/17/2024 6:00 PM [facility] BILIRUBIN (U) NEGATIVE NEGATIVE MG/DL 06/17/2024 6:00 PM [facility] BLOOD (U) TRACE(A) NEGATIVE 06/17/2024 6:00 PM [facility] WBC/HPF 64(H) <6 /HPF 06/17/2024 6:00 PM [facility] RBC/HPF 3 <6 /HPF 06/17/2024 6:00 PM [facility] BACTERIA (U) RARE(A) NONE /HPF 06/17/2024 6:00 PM [facility] URINE SPECIMEN OBTAINED BY CLEAN CATCH PROCEDURE / Unknown 06/17/2024 5:03 PM [employer]ELOP[employer]IST us Papa Spencer MD URINE ORDERABLES Final Resul t [facility] [address] [place] [address], * (ABNORMAL) URINE BACTERIA CULTURE (06/17/2024 5:03 PM TALENT DEVELOPMENT SPECIALIST) Only the most recent of2 resultswithin the time period is included. SPEC DESCRIPTION URINE CLEAN CATCH 06/18/2024 8:37 AM TALENT DEVELOPMENT SPECIALIST [facility] SPECIAL REQUESTS NO SPECIAL REQUEST 06/18/2024 8:37 AM TALENT DEVELOPMENT SPECIALIST [facility] CULTURE RESULT >100,000 COL/ML STAPH. SPECIES NOT STAPH. AUREUS (A) 06/20/2024 8:27 AM TALENT DEVELOPMENT SPECIALIST [facility] URINE SPECIMEN OBTAINED BY CLEAN CATCH PROCEDURE / Unknown 06/17/2024 5:03 PM [employer] DEVELOPMENT SPECIALIST 06/18/2024 9:07 AM [employer] DEVELOPMENT SPECIALIST Narrative Organism Antibiotic Method Susceptibility Staph. species not staph. aureus NITROFURANTOIN GEE (V ITEK) <=16: Sensitive Staph. species not staph. aureus LEVOFLOXACIN GEE (VIT EK) <=0.12: Sensitive Staph. species not staph. aureus OXACILLIN GEE (VIT EK) <=0.25: Sensitive Staph. species not staph. aureus PENICILLIN G GEE (VIT EK) >=0.5: Resistant Staph. species not staph. aureus TRIMETH-SULFAMETH. MS C (VITEK) <=10: Sensitive Staph. species not staph. aureus TETRACYCLINE GEE (VIT EK) <=1: Sensitive Papa Spencer MD MICROBIOLOGY - GENERAL ORDER BRIANNA Final Result [facility] [address] [place] [address], * XR CHEST PORTABLE (06/17/2024 4:20 PM TALENT DEVELOPMENT SPECIALIST) Only the most recent of3 resultswithin the time period is included. Anatomical Region Laterality Modality Chest Radiographic Vonnie ging 06/17/2024 9:54 PM TALENT DEVELOPMENT SPECIALIST Narrative 06/17/2024 9:57 PM TALENT DEVELOPMENT SPECIALIST [address] [address] EXAM: XR CHEST PORTABLE DATE: 06/17/2024 1615 hours Comparison 06/14/2024 INDICATION: Fever, leukocytosis TECHNIQUE: One view FINDINGS: Normal heart and pulmonary vessel size. The lungs are clear. No pleural effusion. Normal appearance of the bones. Pression: Normal exam. Referred By: Interpreted By: Jerrell Palacios MD, 06/17/2024 9:54 PM Procedure Note Jerrell Palacios MD - 06/17/[address] [address] EXAM: XR CHEST PORTABLE DATE: 06/17/2024 1615 hours Comparison 06/14/2024 INDICATION: Fever, leukocytosis TECHNIQUE: One view FINDINGS: Normal heart and pulmonary vessel size. The lungs are clear.No pleural effusion. Normal appearance of the bones. Pression: Normal exam. Referred By: Interpreted By: Jerrell Palacios MD, 06/17/2024 9:54 PM Papa Spencer MD GENERAL IMAGING Final Result * CORONAVIRUS (COVID 19) (06/16/2024 8:35 PM TALENT DEVELOPMENT SPECIALIST) CORONAVIRUS SARS COV 2 RNA NEGATIVE NEGATIVE 06/16/2024 9:49 PM TALENT DEVELOPMENT SPECIALIST [facility] Comment: NEGATIVE RESULTS DO NOT [...] SARS-COV-2. SPECIMEN TYPE NASAL 06/16/2024 9:17 PM TALENT DEVELOPMENT SPECIALIST [facility] NASAL STRUCTURE / Unknown 06/16/2024 8:35 PM TALENT DEVELOPMENT SPECIALIST Teresa Quiros MD MICROBIOLOGY - GENERAL O RDERABLES Final Result [facility] [address] [place] [address], [place] [phone] * INFLUENZA A & B, RAPID (06/16/2024 8:35 PM TALENT DEVELOPMENT SPECIALIST) SPECIMEN TYPE NASAL 06/16/2024 9:23 PM TALENT DEVELOPMENT SPECIALIST [facility] INFLUENZA A NEGATIVE NEGATIVE 06/16/2024 9:49 PM TALENT DEVELOPMENT SPECIALIST [facility] INFLUENZA B NEGATIVE NEGATIVE 06/16/2024 9:49 PM TALENT DEVELOPMENT SPECIALIST [facility] Comment: Interpretation: Negative for Influenza A [...] NASAL STRUCTURE / Unknown 06/16/2024 8:35 PM TALENT DEVELOPMENT SPECIALIST Teresa Quiros MD MICROBIOLOGY - GENERAL O RDERABLES Final Result Performing Organization Address City/[facility]/ZIP Co de Phone Number [facility] [address] [place] [address], [place] [phone] * IR LUMB PUNCTURE DIAGNOSTIC (06/15/2024 2:23 PM TALENT DEVELOPMENT SPECIALIST) Anatomical Region Laterality Modality Spine Interventional R adiology 06/15/2024 1:42 PM TALENT DEVELOPMENT SPECIALIST Impressions 06/15/2024 1:44 PM TALENT DEVELOPMENT SPECIALIST IMPRESSION: 1. Fluoroscopy guided lumbar puncture performed at the L3-L4 level. 2. Opening CSF pressure of 15.8 cm H2O measured. 3. Total 9 mL of CSF fluid collected and sent for testing. 4. No immediate complication Ordered By: PAPA SPENCER Interpreted By: Latrice Valverde MD, 06/15/2024 1:42 PM Narrative 06/15/2024 1:44 PM TALENT DEVELOPMENT SPECIALIST [address] [address] Procedure: IR Lumbar puncture diagnostic with imaging [...] was obtained with patient/patient's medical power of civil rights attorney. The procedure was discussed including the [...] tolerated the procedure well. No immediate complication. Truck Headlight Assembler: Dr. Valverde Radiation dose Air Kerma: 39.3 mGy; 3 fluoroscopy images recorded Procedure Note Latrice Valverde MD - 02/14/2025 [facility] [address] [place], [place] [address] Procedure: IR Lumbar puncture diagnostic with imaging [...] consent was obtained with patient/patient'smedical power of civil rights attorney. The procedure was discussed including therationale, alternatives, benefits and risks. Timeout was performed Patient was positioned prone on the fluoroscopy procedure table. The L3-[id number] space was localized with fluoroscopy. Sterile technique [...] and tolerated the procedure well. Noimmediate complication. Truck Headlight Assembler: Dr. Valverde Radiation dose Air Kerma: 39.3 [...] CSF W/ GRAM STAIN (06/15/2024 1:15 PM TALENT DEVELOPMENT SPECIALIST) [facility] SPEC DESCRIPTION CSF, LUMBAR 06/15/2024 2:24 PM TALENT DEVELOPMENT SPECIALIST [facility] SPECIAL REQUESTS NO SPECIAL REQUEST 06/15/2024 2:24 PM TALENT DEVELOPMENT SPECIALIST [facility] GRAM STAIN RESULT NO WHITE BLOOD CELLS SEEN 06/15/2024 4:08 PM TALENT DEVELOPMENT SPECIALIST [facility] GRAM STAIN RESULT NO ORGANISMS SEEN 06/15/2024 4:08 PM TALENT DEVELOPMENT SPECIALIST [facility] CULTURE RESULT NO GROWTH 5 DAYS 06/20/2024 8:44 AM TALENT DEVELOPMENT SPECIALIST [facility] CSF, LUMBAR 06/15/2024 1:15 PM TALENT DEVELOPMENT SPECIALIST 06/15/2024 2:37 PM TALENT DEVELOPMENT SPECIALIST Papa Spencer MD MICROBIOLOGY - GENERAL ORDER BRIANNA Final Result [facility] [address] [place] [address], * MENINGITIS/ENCEPHALITIS PANEL CSF (06/15/2024 1:15 PM TALENT DEVELOPMENT SPECIALIST) [facility] ESCHERICHIA COLI K1 PCR (CSF) NOT DETECTED NOT DETECTED 06/15/2024 7:32 PM TALENT DEVELOPMENT SPECIALIST [facility] H. INFLUENZAE PCR (CSF) NOT DETECTED NOT DETECTED 06/15/2024 7:32 PM TALENT DEVELOPMENT SPECIALIST [facility] LISTERIA MONOCYTOGENES PCR (CSF) NOT DETECTED NOT DETECTED 06/15/2024 7:32 PM TALENT DEVELOPMENT SPECIALIST [facility] N. MENINGITIDIS PCR (CSF) NOT DETECTED NOT DETECTED 06/15/2024 7:32 PM TALENT DEVELOPMENT SPECIALIST [facility] STREP AGALACTIAE PCR (CSF) NOT DETECTED NOT DETECTED 06/15/2024 7:32 PM TALENT DEVELOPMENT SPECIALIST [facility] STREP PNEUMONIAE PCR (CSF) NOT DETECTED NOT DETECTED 06/15/2024 7:32 PM TALENT DEVELOPMENT SPECIALIST [facility] CYTOMEGALOVIRUS PCR (CSF) NOT DETECTED NOT DETECTED 06/15/2024 7:32 PM TALENT DEVELOPMENT SPECIALIST [facility] ENTEROVIRUS PCR (CSF) NOT DETECTED NOT DETECTED 06/15/2024 7:32 PM TALENT DEVELOPMENT SPECIALIST [facility] HERPES SIMPLEX 1 PCR (CSF) NOT DETECTED NOT DETECTED 06/15/2024 7:32 PM TALENT DEVELOPMENT SPECIALIST [facility] HERPES SIMPLEX 2 PCR (CSF) NOT DETECTED NOT DETECTED 06/15/2024 7:32 PM TALENT DEVELOPMENT SPECIALIST [facility] HUMAN HERPESVIRUS 6 PCR (CSF) NOT DETECTED NOT DETECTED 06/15/2024 7:32 PM TALENT DEVELOPMENT SPECIALIST [facility] HUMAN PARECHOVIRUS PCR (CSF) NOT DETECTED NOT DETECTED 06/15/2024 7:32 PM TALENT DEVELOPMENT SPECIALIST [facility] VARICELLA ZOSTER PCR NOT DETECTED NOT DETECTED 06/15/2024 7:32 PM TALENT DEVELOPMENT SPECIALIST [facility] C NEOFORMANS/GATTII PCR (CSF) NOT DETECTED NOT DETECTED 06/15/2024 7:32 PM TALENT DEVELOPMENT SPECIALIST [facility] CSF, LUMBAR 06/15/2024 1:15 PM TALENT DEVELOPMENT SPECIALIST us Papa Spencer MD BODY FLUIDS AND STOOLS ORDER BRIANNA Final Result [facility] [address] [place] [address], [id number] * CELL COUNT, CSF (06/15/2024 1:15 PM TALENT DEVELOPMENT SPECIALIST) TUBE NUMBER 3 06/15/2024 3:47 PM TALENT DEVELOPMENT SPECIALIST [facility] TOTAL VOLUME (CSF) 9.0 ML 06/15/2024 3:47 PM TALENT DEVELOPMENT SPECIALIST [facility] COLOR (CSF) COLORLESS 06/15/2024 3:47 PM TALENT DEVELOPMENT SPECIALIST [facility] CLARITY (CSF) CLEAR 06/15/2024 3:47 PM TALENT DEVELOPMENT SPECIALIST [facility] RBC (CSF) 118 CELLS/UL 06/15/2024 3:47 PM TALENT DEVELOPMENT SPECIALIST [facility] TOTAL NUCLEATED CELL (CSF) 5 0 - 5 CELLS/UL 06/15/2024 3:47 PM TALENT DEVELOPMENT SPECIALIST [facility] SEGS (CSF) 14 % 06/15/2024 3:47 PM TALENT DEVELOPMENT SPECIALIST [facility] LYMPHS (CSF) 38 % 06/15/2024 3:47 PM TALENT DEVELOPMENT SPECIALIST [facility] OTHER MONONUCLEAR CELLS (CSF) 48 % 06/15/2024 3:47 PM TALENT DEVELOPMENT SPECIALIST [facility] Comment: THE FOLLOWING MAY INCLUDE MONOCYTE/MACROPHAGE,PLASMA CELL,MESOTHELIAL CELL,BRONCHIAL LINING CELL,SYNOVIAL LINING CELL,VENTRICULAR LINING CELL,ENDOTHELIAL CELL,SQUAMOUS EPITHELIAL AND OTHER CELLS. CSF, LUMBAR 06/15/2024 1:15 PM TALENT DEVELOPMENT SPECIALIST us Papa Spencer MD BODY FLUIDS AND STOOLS ORDER BRIANNA Final Result Performing Organization Address City/[facility]/ZIP Co de Phone Number [facility] [address] [place] [address], [place] [phone] * (ABNORMAL) GLUCOSE CSF (06/15/2024 1:15 PM TALENT DEVELOPMENT SPECIALIST) GLUCOSE (CSF) 71(H) 40 - 70 MG/DL 06/15/2024 2:50 PM TALENT DEVELOPMENT SPECIALIST [facility] CEREBRAL SPINAL FLUID (CSF, LUMBAR) 06/15/2024 1:15 PM TALENT DEVELOPMENT SPECIALIST us Papa Spencer MD BODY FLUIDS AND STOOLS ORDER BRIANNA Final Result Performing Organization Address City/[facility]/ZIP Co de Phone Number [facility] [address] [place] [address], [place] [phone] * SYPHILIS RPR VDRL CSF (06/15/2024 1:15 PM TALENT DEVELOPMENT SPECIALIST) VDRL (CSF) Nonreactive Nonreactive 06/18/2024 2:07 PM TALENT DEVELOPMENT SPECIALIST [employer] NICKY THORNE Comment: Test Performed by Jani Marcial, [facility], [address] [place], [place] Hao Vincent M.D., Ph.D., Director of Laboratories , [place] [id number] CSF, LUMBAR 06/15/2024 1:15 PM TALENT DEVELOPMENT SPECIALIST Papa Spencer MD BODY FLUIDS AND STOOLS ORDER BRIANNA Final Result Performing Organization Address City/[facility]/ZIP Co de Phone Number [employer] [facility] [address] [place], [place] , [place] [phone] * (ABNORMAL) PROTEIN TOTAL CSF (06/15/2024 1:15 PM TALENT DEVELOPMENT SPECIALIST) Pathologist [facility] TOTAL PROTEIN (CSF) 66(H) 15 - 45 MG/DL 06/15/2024 2:50 PM TALENT DEVELOPMENT SPECIALIST [facility] CEREBRAL SPINAL FLUID (CSF, LUMBAR) 06/15/2024 1:15 PM TALENT DEVELOPMENT SPECIALIST Papa Spencer MD BODY FLUIDS AND STOOLS ORDER BRIANNA Final Result [facility] [address] [place] [address], [place] [phone] * HSV, TYPE 1&2 DNA, QN RT PCR (06/15/2024 1:13 PM TALENT DEVELOPMENT SPECIALIST) Pathologist [facility] SPECIMEN SOURCE CEREBROSPINAL FLUID 06/15/2024 2:37 PM TALENT DEVELOPMENT SPECIALIST [facility] HSV 1 DNA Not Detected <100 copies/ mL 06/18/2024 5:27 PM TALENT DEVELOPMENT SPECIALIST [employer] NICKY THORNE HSV 2 DNA Not Detected <100 copies/ mL 06/18/2024 5:27 PM TALENT DEVELOPMENT SPECIALIST [employer] NICKY THORNE Comment: Reference Range: Not Detected This test was developed and its analytical performance characteristics have been determined by [facility] [place], [place]. It has not been cleared or approved by the FDA. This assay has been validated pursuant to the CLIA regulations and is used for clinical purposes. Test Performed by [facility], [facility], [address] [place] [address] Hao Vincent M.D., Ph.D., Director of Laboratories , CLIA [id number] CSF, LUMBAR 06/15/2024 1:13 PM TALENT DEVELOPMENT SPECIALIST us Papa Spencer MD LABORATORY Final Result Performing Organization Address City/[facility]/ZIP Co de Phone Number [employer] [address] , [place] [phone] [facility] [address] [place] [address], [place] [phone] * PTT, PARTIAL THROMBOPLASTIN TIME (06/15/2024 10:21 AM TALENT DEVELOPMENT SPECIALIST) Only the most recent of3 resultswithin the time period is included. Pathologist [facility] PTT 28.4 25.1 - 36.5 SEC 06/15/2024 10:56 AM TALENT DEVELOPMENT SPECIALIST [facility] 06/15/2024 10:2 1 AM TALENT DEVELOPMENT SPECIALIST us Papa Spencer MD LABORATORY Final Result [facility] [address] [place] [address], [place] [phone] * (ABNORMAL) PROTIME/INR, VENOUS (06/15/2024 10:21 AM TALENT DEVELOPMENT SPECIALIST) Only the most recent of3 resultswithin the time period is included. PROTIME 14.0(H) 10.2 - 12.9 SEC 06/15/2024 10:56 AM TALENT DEVELOPMENT SPECIALIST [facility] INR 1.2 06/15/2024 10:56 AM TALENT DEVELOPMENT SPECIALIST [facility] Comment: Recommended INR Therapeutic Goals: 2.0-3.0 Routine Therapy 2.5-3.5 Mechanical Prosthetic Valves (High Risk) 06/15/2024 10:2 1 AM TALENT DEVELOPMENT SPECIALIST us Papa Spencer MD LABORATORY Final Result [facility] [address] [place] [address], * CYTOLOGY GENERIC (06/15/2024 12:00 AM TALENT DEVELOPMENT SPECIALIST) CYTOLOGY OTHER [facility] Department of Laboratory Medicine [address] [place] [address] , extension [phone] Pathology Report Non-gynecologic Cytology Report Name: ROSANA RITCHIE Specimen #: [id number] Age: 7 1950 (Age: 73) Location: [facility] Sex: F Procedure Date: 06/15/2024 Hospital #: [id number] Date Received: 06/18/2024 Date Reported: 06/19/2024 Provider: [...] interpretation, and sign out were performed at [facility], [address] [place] [address]. Electronically Signed Out SHAHRIAR OAKLEY MD [facility] CSF, LUMBAR 06/15/2024 06/18/2024 12 :37 PM TALENT DEVELOPMENT SPECIALIST Comment:CEREBROSPINAL FLUID, LUMBAR PUNCTURE Papa Spencer MD PATHOLOGY/CYTOLOGY ORDERABLE S Final Result [facility] [address] [place] [address], [phone] * XR CHEST PA+LAT (06/14/2024 7:16 AM TALENT DEVELOPMENT SPECIALIST) Anatomical Region Laterality Modality Chest Radiographic Vonnie ging 06/14/2024 7:37 AM TALENT DEVELOPMENT SPECIALIST Impressions 06/14/2024 7:40 AM TALENT DEVELOPMENT SPECIALIST IMPRESSION: 1. No acute findings. Previously seen questioned right perihilar airspace opacity is not appreciated on today's study. 2. Enteric tube with side port and distal tip projecting over the stomach. Referred By: Interpreted By: Herberth Charles MD, 06/14/2024 7:37 AM Narrative 06/14/2024 7:40 AM TALENT DEVELOPMENT SPECIALIST [address] [address] XR CHEST PA+LAT INDICATION: Abnormality on portable [...] Procedure Note Herberth Charles MD - 06/14/2024 [facility] [address] [place], [place] [address] XR CHEST PA+LAT INDICATION: Abnormality on portable [...] MD, 06/14/2024 7:37 AM Alexandria Indigo Sheng MANAGER [employer] GENERAL IMAGING Final Resul t * MRI BRAIN WO CON (06/13/2024 10:11 PM TALENT DEVELOPMENT SPECIALIST) Anatomical Region Laterality Modality Head Magnetic Resonan ce 06/13/2024 10:1 5 PM TALENT DEVELOPMENT SPECIALIST Impressions 06/13/2024 10:17 PM TALENT DEVELOPMENT SPECIALIST IMPRESSION: ===== 1. No convincing acute intracranial abnormality within limitations of motion artifact. 2. Atrophy and small vessel ischemic disease. Referred By: Interpreted By: Willam Dinh MD, 06/13/2024 10:15 PM Narrative 06/13/2024 10:17 PM TALENT DEVELOPMENT SPECIALIST [facility] [address] [place], [place] [address] EXAMINATION: MRI brain without contrast. EXAM DATE/TIME: 06/13/2024 10:01 PM REASON FOR EXAM: ORDERING PROVIDER COMMENT: AMS, left sided symptoms Altered mental status. Increasing falls on Tuesday. Decreased mental awareness. Unable to speak. COMPARISON: Head CT 06/13/2024. Prior brain MRI from [facility]. TECHNIQUE: Multiplanar multisequence MRI of the brain [...] Procedure Note Willam Dinh MD - 06/13/[address] [address] EXAMINATION: MRI brain without contrast. EXAM DATE/TIME: 06/13/2024 10:01 PM REASON FOR EXAM: ORDERING PROVIDER COMMENT: AMS, left sided symptoms Altered mental status. Increasing falls on Tuesday. Decreased mentalawareness. Unable to speak. COMPARISON: Head CT 06/13/2024. Prior brain MRI from [facility]. TECHNIQUE: Multiplanar multisequence MRI of the brain [...] Dinh MD, 06/13/2024 10:15 PM Alexandria Patricio MANAGER [employer] MRI Final Resul t * RESPIRATORY PCR PANEL 2 (06/13/2024 7:54 PM TALENT DEVELOPMENT SPECIALIST) ADENOVIRUS PCR (RESP) NOT DETECTED NOT DETECTED 06/13/2024 9:10 PM TALENT DEVELOPMENT SPECIALIST [facility] CORONAVIRUS 229E PCR (RESP) NOT DETECTED NOT DETECTED 06/13/2024 9:10 PM TALENT DEVELOPMENT SPECIALIST [facility] CORONAVIRUS HKU1 PCR (RESP) NOT DETECTED NOT DETECTED 06/13/2024 9:10 PM TALENT DEVELOPMENT SPECIALIST [facility] CORONAVIRUS NL63 PCR (RESP) NOT DETECTED NOT DETECTED 06/13/2024 9:10 PM TALENT DEVELOPMENT SPECIALIST [facility] CORONAVIRUS OC43 PCR (RESP) NOT DETECTED NOT DETECTED 06/13/2024 9:10 PM TALENT DEVELOPMENT SPECIALIST [facility] METAPNEUMOVIRUS PCR (RESP) NOT DETECTED NOT DETECTED 06/13/2024 9:10 PM TALENT DEVELOPMENT SPECIALIST [facility] RHINOVIRUS/ENTEROV IRUS PCR (RESP) NOT DETECTED NOT DETECTED 06/13/2024 9:10 PM TALENT DEVELOPMENT SPECIALIST [facility] INFLUENZA A PCR (RESP) NOT DETECTED NOT DETECTED 06/13/2024 9:10 PM TALENT DEVELOPMENT SPECIALIST [facility] INFLUENZA B PCR (RESP) NOT DETECTED NOT DETECTED 06/13/2024 9:10 PM TALENT DEVELOPMENT SPECIALIST [facility] PARAINFLUENZA 1 PCR (RESP) NOT DETECTED NOT DETECTED 06/13/2024 9:10 PM TALENT DEVELOPMENT SPECIALIST [facility] PARAINFLUENZA 2 PCR (RESP) NOT DETECTED NOT DETECTED 06/13/2024 9:10 PM TALENT DEVELOPMENT SPECIALIST [facility] PARAINFLUENZA 3 PCR (RESP) NOT DETECTED NOT DETECTED 06/13/2024 9:10 PM TALENT DEVELOPMENT SPECIALIST [facility] PARAINFLUENZA 4 PCR (RESP) NOT DETECTED NOT DETECTED 06/13/2024 9:10 PM TALENT DEVELOPMENT SPECIALIST [facility] RSV PCR (RESP) NOT DETECTED NOT DETECTED 06/13/2024 9:10 PM TALENT DEVELOPMENT SPECIALIST [facility] B PARAPERTUSIS PCR (RESP) NOT DETECTED NOT DETECTED 06/13/2024 9:10 PM TALENT DEVELOPMENT SPECIALIST [facility] BORDETELLA PERTUSSIS PCR (RESP) NOT DETECTED NOT DETECTED 06/13/2024 9:10 PM TALENT DEVELOPMENT SPECIALIST [facility] CHLAMYDOPHILA PNEUMONIAE PCR (RESP) NOT DETECTED NOT DETECTED 06/13/2024 9:10 PM TALENT DEVELOPMENT SPECIALIST [facility] MYCOPLASMA PNEUMONIAE PCR (RESP) NOT DETECTED NOT DETECTED 06/13/2024 9:10 PM TALENT DEVELOPMENT SPECIALIST [facility] CORONAVIRUS SARS COV 2 PCR (RESP) NOT DETECTED NOT DETECTED 06/13/2024 9:10 PM TALENT DEVELOPMENT SPECIALIST [facility] NASOPHARYNGEAL SWAB / Unknown 06/13/2024 7:54 PM TALENT DEVELOPMENT SPECIALIST Alexandria Patricio MANAGER [employer] MICROBIOLOGY - GENERAL TRISTEN LOBO Final Result [facility] [address] [place] [address], * AMMONIA (06/13/2024 7:54 PM TALENT DEVELOPMENT SPECIALIST) AMMONIA 20 11 - 32 UMOL/L 06/13/2024 8:32 PM TALENT DEVELOPMENT SPECIALIST [facility] 06/13/2024 7:54 PM TALENT DEVELOPMENT SPECIALIST us Alexandria Patricio DAVID LABORATORY Final Resul t Performing Organization Address City/[facility]/ZIP Co de Phone Number [facility] [address] [place] [address], [place] [phone] * TSH W/REFLEX (06/13/2024 5:09 PM TALENT DEVELOPMENT SPECIALIST) TSH 0.921 0.358 - 3.74 uIU/ML 06/13/2024 7:38 PM TALENT DEVELOPMENT SPECIALIST [facility] Comment: HIGH DOSES OF BIOTIN MAY INTERFERE WITH THIS TEST RESULT. CORRELATION TO CLINICAL HISTORY AND PRESENTATION RECOMMENDED. FREE T4 NOT INDICATED 06/13/2024 5:09 PM TALENT DEVELOPMENT SPECIALIST us Alexandria Patricio DAVID LABORATORY Final Resul t Performing Organization Address [facility] Co de Phone Number [facility] [address] [place] [address], [place] [phone] * VITAMIN B-12 (06/13/2024 5:09 PM TALENT DEVELOPMENT SPECIALIST) VITAMIN B12 S/P/B 452 254 - 1,320 PG/ML 06/13/2024 7:04 PM TALENT DEVELOPMENT SPECIALIST [facility] 06/13/2024 5:09 PM TALENT DEVELOPMENT SPECIALIST us Alexandria Patricio MANAGER [employer] LABORATORY Final Resul t Performing Organization Address City/[facility]/ZIP Co de Phone Number [facility] [address] [place] [address], [place] [phone] * TROPONIN, QUANT (06/13/2024 5:09 PM TALENT DEVELOPMENT SPECIALIST) Only the most recent of2 resultswithin the time period is included. Pathologist [facility] TROPONIN I HIGH SENSITIVITY 42 <54 ng/L 06/13/2024 6:09 PM TALENT DEVELOPMENT SPECIALIST [facility] Comment: HIGH DOSES OF BIOTIN, TROPONIN-SPECIFIC AUTOANTIBODIES, AND ANTIBODY THERAPY CONTAINING HAMA MAY INTERFERE WITH THIS TEST RESULT. CORRELATION TO CLINICAL HISTORY AND PRESENTATION RECOMMENDED. 06/13/2024 5:09 PM TALENT DEVELOPMENT SPECIALIST Alexandria Patricio MANAGER [employer] LABORATORY Final Resul t [facility] [address] [place] [address], * (ABNORMAL) MYCOPLASMA PNEUMONIAE AB (06/13/2024 5:08 PM TALENT DEVELOPMENT SPECIALIST) [facility] M. PNEUMONIAE AB IGG 2.80(H) <=0.90 06/18/2024 3:34 PM TALENT DEVELOPMENT SPECIALIST [employer] JOSH SIM Comment: Reference Range: <=0.90 Negative 0.91-1.09 Equivocal >=1.10 Positive A positive IgG result indicates that the patient has antibody to Mycoplasma. It does not differentiate between an active or past infection. The clinical diagnosis must be interpreted in conjunction with the clinical signs and symptoms of the patient. M. PNEUMONIAE AB IGM 45 <770 U/mL 06/18/2024 3:34 PM TALENT DEVELOPMENT SPECIALIST [employer] JOSH SIM Comment: Reference Range: <770 U/ml [...] the patient. Test Performed by Jani Marcial [facility], [address] [place], [place] Hao Vincent M.D., Ph.D., Director of Laboratories , [place] [id number] 06/13/2024 5:08 PM TALENT DEVELOPMENT SPECIALIST Alexandria Patricio MANAGER [employer] LABORATORY Final Resul t [employer] [facility] [address] [place], [place] , [place] [phone] * (ABNORMAL) ARTERIAL BLOOD GAS (06/13/2024 5:06 PM TALENT DEVELOPMENT SPECIALIST) PH ARTERIAL 7.34(L) 7.35 - 7.45 06/13/2024 5:14 PM [facility] PCO2 45.0 35.0 - 45.0 MMHG 06/13/2024 5:14 PM [facility] PO2 74.0(L) 83.0 - 108.0 MMHG 06/13/2024 5:14 PM [facility] TOTAL CO2 ARTERIAL 25.7(H) 19.0 - 24.0 MMOL/L 06/13/2024 5:14 PM [facility] BASE DEFICIT 1.7 0.0 - 3.0 MMOL/L 06/13/2024 5:14 PM [facility] O2 SATURATION 94 94.0 - 98.0 % 06/13/2024 5:14 PM [facility] BICARB ARTERIAL 24.3 21.0 - 28.0 MMOL/L 06/13/2024 5:14 PM [facility] MARKELL TEST MARKELL TEST PERFORMED 06/13/2024 5:11 PM [facility] O2 ADMIN ARTERIAL 21 06/13/2024 5:11 PM [facility] DRAW SITE ARTERIAL RT RADIAL 06/13/2024 5:11 PM TALENT DEVELOPMENT SPECIALIST [facility] 06/13/2024 5:06 PM TALENT DEVELOPMENT SPECIALIST Alexandria Patricio APRN LABORATORY Final Resul t Performing Organization Address City/[facility]/ZIP Co de Phone Number [facility] [address] [place] [address], [place] [phone] * STREP PNEUMO AG URINE (06/13/2024 4:34 PM TALENT DEVELOPMENT SPECIALIST) S. PNEUMONIAE URINARY AG NEGATIVE NEGATIVE 06/14/2024 12:15 PM TALENT DEVELOPMENT SPECIALIST [facility] URINE SPECIMEN OBTAINED BY CLEAN CATCH PROCEDURE / Unknown 06/13/2024 4:34 PM TALENT DEVELOPMENT SPECIALIST Alexandria Patricio APRN MICROBIOLOGY - GENERAL ORDE RABLES Final Result [facility] [address] [place] [address], [place] [phone] * DRUG SCREEN RAPID (06/13/2024 4:34 PM TALENT DEVELOPMENT SPECIALIST) AMPHETAMINE (U) NEGATIVE NEGATIVE 3:37 AM TALENT DEVELOPMENT SPECIALIST [facility] BARBITURATES SCREEN (U) NEGATIVE NEGATIVE 06/14/2024 3:37 AM TALENT DEVELOPMENT SPECIALIST [facility] BENZODIAZEPINES SCREEN (U) NEGATIVE NEGATIVE 06/14/2024 3:37 AM TALENT DEVELOPMENT SPECIALIST [facility] CANNABINOIDS SCREEN (U) NEGATIVE NEGATIVE 06/14/2024 3:37 AM TALENT DEVELOPMENT SPECIALIST [facility] COCAINE METABOLITES (U) NEGATIVE NEGATIVE 06/14/2024 3:37 AM TALENT DEVELOPMENT SPECIALIST [facility] METHADONE (U) NEGATIVE NEGATIVE 06/14/2024 3:37 AM TALENT DEVELOPMENT SPECIALIST [facility] OPIATE SCREEN (U) NEGATIVE NEGATIVE 025 3:37 AM TALENT DEVELOPMENT SPECIALIST [facility] PHENCYCLIDINE PCP (U) NEGATIVE NEGATIVE 06/14/2024 3:37 AM [facility] Comment: NOTE: RESULTS OF THIS DRUG SCREEN SHOULD BE USED FOR MEDICAL PURPOSES ONLY AND NOT FOR LEGAL OR EMPLOYMENT PURPOSES. POSITIVE RESULTS ARE NOT CONFIRMED. MEDICATIONS CONTAINING EPHEDRINE MAY CAUSE FALSE POSITIVE AMPHETAMINE CALL [phone], LAB, TO REQUEST CONFIRMATION TESTING. IF CREATININE IS <40 mg/dL. RECOLLECTION IS SUGGESTED. AMPHETAMINE- 500 NG/ML BARBITURATE- 200 NG/ML BENZODIAZEPINES- 200 NG/ML THC- 50 NG/ML COCAINE- 150 NG/ML METHADONE- 300 NG/ML OPIATE- 300 MG/ML PCP- 25 NG/ML CREATININE (U) 63.3 28 - 217 MG/DL 06/14/2024 3:37 AM TALENT DEVELOPMENT SPECIALIST [facility] URINE SPECIMEN / Unknown 06/13/2024 4:34 PM TALENT DEVELOPMENT SPECIALIST us Alexandria Patricio APRN URINE ORDERABLES Final Resu lt [facility] [address] [place] [address], [place] [phone] * LEGIONELLA AG URINE (06/13/2024 4:34 PM TALENT DEVELOPMENT SPECIALIST) LEGIONELLA ANTIGEN (URINE) NEGATIVE NEGATIVE 06/14/2024 12:15 PM TALENT DEVELOPMENT SPECIALIST [facility] URINE SPECIMEN / Unknown 06/13/2024 4:34 PM TALENT DEVELOPMENT SPECIALIST us Alexandria Patricio MANAGER [employer] MICROBIOLOGY - GENERAL ORDE RAUDELLES Final Result Performing Organization Address City/[facility]/ZIP Co de Phone Number [facility] [address] [place] [address], [place] [phone] * ECG 12 lead (06/13/2024 1:58 PM TALENT DEVELOPMENT SPECIALIST) 06/13/2024 1:58 PM TALENT DEVELOPMENT SPECIALIST Narrative [facility] ([facility]) RAD - 06/13/2024 7:22 PM TALENT DEVELOPMENT SPECIALIST [facility] [address] Test Date: 2024-06-13 Pat Name: ROSANA [facility] Department: 41 Room: EXAM16 Gender: Female Director News: [id number] : 1950 Requested By: ISMA VÁZQUEZ Order Number: [id number] Reading MD: Lisa Recinos Measurements Intervals Erin Rate: 56 P: 59 MS: 167 QRS: 55 QRSD: 97 T: 46 QT: 456 QTc: 443 Interpretive Statements SINUS BRADYCARDIA No previous ECG available for comparison No ischemic changes Preliminary EKG interpretation by ED Physician Dr. Anand Torres NT DEVELOPMENT SPECIALIST Procedure Note Lisa Recinos MD - 06/13/2024 [facility] [facility] [address] Test Date: 2024-06-13 Pat Name: ROSANA TOMLIN Department: 41 Room: EXAM16 Gender: Female Director News: [id number] : 1950 Requested By: ISMA VÁZQUEZ Order Number: [id number] Reading MD: Lisa Recinos Measurements Intervals Erin Rate: 56 P: 59 MS: 167 QRS: 55 QRSD: 97 T: 46 QT: 456 QTc: 443 Interpretive Statements SINUS BRADYCARDIA No previous ECG available for comparison No ischemic changes Preliminary EKG interpretation by ED Physician Dr. Anand Torres NT DEVELOPMENT SPECIALIST us Isma Vázquez FRAMING MANAGER ECG ORDERABLES Final Result [facility] ([facility] * CTA HEAD+NECK (06/13/2024 1:47 PM TALENT DEVELOPMENT SPECIALIST) Anatomical Region Laterality Modality Head, Neck Computed Tomogra phy 06/13/2024 3:00 PM TALENT DEVELOPMENT SPECIALIST Impressions 06/13/2024 3:17 PM TALENT DEVELOPMENT SPECIALIST IMPRESSION: 1. No evidence of dissection, pseudoaneurysm, [...] 06/13/2024 3:00 PM Narrative 06/13/2024 3:17 PM TALENT DEVELOPMENT SPECIALIST [address] [address] EXAMINATION: CT ANGIOGRAM BRAIN AND NECK WITH [...] Procedure Note Noam Wood MD - 06/13/[address] [address] EXAMINATION: CT ANGIOGRAM BRAIN AND NECK WITH [...] MD, 06/13/2024 3:00 PM us Isma Vázquez FRAMING MANAGER CT Final Result * CT HEAD WO CON (06/13/2024 1:47 PM TALENT DEVELOPMENT SPECIALIST) Anatomical Region Laterality Modality Head Computed Tomogra phy 06/13/2024 2:02 PM TALENT DEVELOPMENT SPECIALIST Impressions 06/13/2024 2:05 PM TALENT DEVELOPMENT SPECIALIST IMPRESSION: 1. No CT evidence of an acute intracranial abnormality. 2. No cervical spine fracture. 3. Scattered subcortical and periventricular white matter foci demonstrating hypodensity that are nonspecific but most commonly seen in setting of chronic small vessel ischemic change. Ordered By: ISMA VÁZQUEZ Interpreted By: Donte York MD, 06/13/2024 2:02 PM Narrative 06/13/2024 2:05 PM TALENT DEVELOPMENT SPECIALIST [address] [address] EXAMINATION: CT Head, CT Cervical Spine. [id number] EXAM DATE/TIME: 06/13/2024 1:36 PM REASON FOR [...] Procedure Note Donte York MD - 06/13/[address] [address] EXAMINATION: CT Head, CT Cervical Spine. [id number] EXAM DATE/TIME: 06/13/2024 1:36 PM REASON FOR [...] York MD, 06/13/2024 2:02 PM Isma Vázquez FRAMING MANAGER CT Final Result * CT CERV SPINE WO CON (06/13/2024 1:47 PM TALENT DEVELOPMENT SPECIALIST) Anatomical Region Laterality Modality Spine Computed Tomogra phy 06/13/2024 2:02 PM TALENT DEVELOPMENT SPECIALIST Impressions 06/13/2024 2:05 PM TALENT DEVELOPMENT SPECIALIST IMPRESSION: 1. No CT evidence of an acute intracranial abnormality. 2. No cervical spine fracture. 3. Scattered subcortical and periventricular white matter foci demonstrating hypodensity that are nonspecific but most commonly seen in setting of chronic small vessel ischemic change. Ordered By: ISMA VÁZQUEZ Interpreted By: Donte York MD, 06/13/2024 2:02 PM Narrative 06/13/2024 2:05 PM TALENT DEVELOPMENT SPECIALIST [facility] [address] [facility], [place] [address] EXAMINATION: CT Head, CT Cervical Spine. [id number] EXAM DATE/TIME: 06/13/2024 1:36 PM REASON FOR [...] Procedure Note Donte York MD - 06/13/2024 [facility] [address] [place], [place] [address] EXAMINATION: CT Head, CT Cervical Spine. [id number] EXAM DATE/TIME: 06/13/2024 1:36 PM REASON FOR [...] York MD, 06/13/2024 2:02 PM Isma Vázquez FRAMING MANAGER CT Final Result * PROCALCITONIN (PCT) (06/13/2024 11:58 AM TALENT DEVELOPMENT SPECIALIST) Procalcitonin <0.05 0.00 - 0.49 NG/ML 06/13/2024 6:07 PM TALENT DEVELOPMENT SPECIALIST [facility] 06/13/2024 11:5 8 AM TALENT DEVELOPMENT SPECIALIST Alexandria Patricio MANAGER [facility] Final Resul t [facility] [address] [place] [address], [place] [phone] * PHOSPHORUS, INORGANIC PHOSPHATE (06/13/2024 11:58 AM TALENT DEVELOPMENT SPECIALIST) PHOSPHORUS 3.3 2.5 - 4.9 MG/DL 06/13/2024 5:19 PM TALENT DEVELOPMENT SPECIALIST [facility] 06/13/2024 11:5 8 AM TALENT DEVELOPMENT SPECIALIST us Alexandria Sood Sheng [facility] Final Resul t [facility] [address] [place] [address], [place] [phone] * MAGNESIUM (06/13/2024 11:58 AM TALENT DEVELOPMENT SPECIALIST) MAGNESIUM 2.2 1.8 - 2.4 MG/DL 06/13/2024 5:19 PM TALENT DEVELOPMENT SPECIALIST [facility] 06/13/2024 11:5 8 AM TALENT DEVELOPMENT SPECIALIST us Alexandria Patricio [facility] Final Resul t [facility] [address] [place] [address], [place] [phone] * PROLACTIN (06/13/2024 11:58 AM TALENT DEVELOPMENT SPECIALIST) PROLACTIN 23.3 NG/ML 06/13/2024 5:19 PM TALENT DEVELOPMENT SPECIALIST [facility] Comment:FEMALE REFERENCE RAN GE (NON-): 4.8-23.3 06/13/2024 11:5 8 AM TALENT DEVELOPMENT SPECIALIST us Alexandria Patricio [facility] Final Resul t [facility] [address] [place] [address], [place] [phone] * BONE DENSITY GENERIC (04/26/2023) Anatomical Region Laterality Modality Other 04/26/2023 us [facility] Scanned SCANNING Final Resu lt * COLOGUARD ([facility]) (01/23/2023 2:41 PM CDT) COLOGUARD RESULT Negative Negative [facility] (CLIA #:[id number]) Comment: NEGATIVE TEST RESULT. A negative Cologuard [...] (Gillian Waldron al, N Engl J Med 2014;370(14):1978-6630) The normal value (reference range) for this assay is negative. COLOGUARD RE-SCREENING RECOMMENDATION: Periodic colorectal cancer screening is an important part of preventive healthcare for asymptomatic individuals at average risk for colorectal cancer. Following a negative Cologuard result, the [place] [employer] and U.S. Multi-Society Task Force screening guidelines recommend a Cologuard re-screening interval of 3 years. References: [place] [employer] Guideline for Colorectal Cancer Screening: https://www.cancer.org/cancer/mmfkh-rbjfvj-nsuigh/yerdhyzlp-bwsewywcu-xndsmba/ac s-rec ommendations.html.; Pravin CURRAN, Hilda DOWLING, Cheikh ZHU, Colorectal Cancer Screening: Recommendations for Physicians and Patients from the U.S. Multi-Society Task Force on Colorectal Cancer Screening , Am J Gastroenterology 2017; 112:0669-9348. TEST DESCRIPTION: Composite algorithmic analysis of stool [...] Martel et al, N Engl J Med 2014;370(14):5312-6529.) Cologuard may produce a false negative or false positive result (no colorectal cancer or precancerous polyp present at colonoscopy follow up). A negative Cologuard test result does not guarantee the absence of CRC or advanced adenoma (pre-cancer). The current Cologuard screening interval is every 3 years. ([place] [employer] and U.S. Multi-Society Task Force). Cologuard performance data in a 10,000 patient pivotal study using colonoscopy as the reference method can be accessed at the following location: www.Expa.com/results. Additional description of the Cologuard test process, warnings and precautions can be found at www.cologChaologixrd.com. STOOL STOOL SPECIMEN / Unknown 01/23/2023 2:41 PM CDT 01/25/2023 9:15 AM CDT us Ryan Aldana DO BODY FLUIDS AND STOOLS O RDERABLES Final Result [facility] [address] [facility]) [address] [place] [address], [facility] (CLIA #:[id number]) [address] [place] [address] * HEPATITIS C ANTIBODY (07/02/2022 1:43 PM TALENT DEVELOPMENT SPECIALIST) HEPATITIS C AB NON-REACTI VE NON-REACT PHOEBE 07/05/2022 7:33 PM TALENT DEVELOPMENT SPECIALIST [facility] Comment: ANTIBODIES TO HCV NOT DETECTED. DOES NOT EXCLUDE THE POSSIBILITY OF EXPOSURE TO HCV. 07/02/2022 1:43 PM TALENT DEVELOPMENT SPECIALIST Ryan Aldana DO LABORATORY Final Re sult [facility] [address] [place] [address], [id number] from Last 3 Months or Most Recently Relevant to Health Maintenance [place] [address] [place] [address] MEDICAID [place] Advance Directives Documents on File Type Date Recorded Patient Qc Manager Expl anation Power of Cattle Care Worker 08/22/2019 POA * POLST (Latest Code Status [...] discussion: Agent Under Health Care Power of Cattle Care Worker * POLST Date Activated Date Inactivated Comments [...] discussion: Agent Under Health Care Power of Cattle Care Worker Healthcare Agents on File Name Relationship Healthcare Agent [facility] p Communication Lorie Ritchie Sister Health Care Agent Care Teams Counseling Director Relationship Specialty Start Date End Date yRan Aldana DO [address] [place] [id number] PCP - General FAMILY PRACTICE 05/31/19
== END 2024-08-13 13:36 | disposition home or self-care (01) ==
PROVIDERS: Emergency Provider Emergency Medicine; PCP Student in an Organized Health Care Education/Training Program
DX: S09.90XA Unspecified injury of head, initial encounter (principal); M47.812 Spondylosis without myelopathy or radiculopathy, cervical region; W19.XXXA Unspecified fall, initial encounter
CPT/HCPCS: 70450; 72125; 99284

== ENCOUNTER 2025-04-05 15:49 | Emergency (ER) | payer OTHER, MEDICAID, SELFPAY ==
--- NOTE | ~2025-04-05 | CT_ITS ---
EXAMINATION: CT brain wo con, 04/05/2025 16:50 [place] SOCK LININGS HISTORY: dizziness COMPARISON: No comparisons available. Technique: Axial images obtained of the brain without contrast. One or more of the following dose reduction techniques were used: automated exposure control, adjustment of the mA and/or kV according to patient size, use of iterative reconstruction technique. Findings: No acute infarct or parenchymal hemorrhage. No abnormal mass or mass effect. No midline shift. No extra-axial fluid collections. No hydrocephalus. Mastoid air cells unremarkable. Sinuses and orbits unremarkable. No acute fracture. No significant facial or scalp soft tissue swelling evident. No radiopaque foreign body is seen. Impression: 1.No acute intracranial abnormality. Reviewed, dictated and finalized at location P. ER SOCK LININGS Impression: 1.No acute intracranial abnormality.
--- NOTE | ~2025-04-05 | XR_ITS ---
EXAMINATION: XR chest 1V portable 04/05/2025 16:43 INDICATION: Dizziness PROCEDURE: AP portable chest COMPARISON: No prior studies for comparison. FINDINGS: The lungs are clear. The cardiomediastinal silhouette is within normal limits. There are no pleural effusions. There is no pneumothorax suspected. IMPRESSION: 1: NO ACUTE CARDIOPULMONARY DISEASE. Reviewed, dictated and finalized at location I. GER SPEECH
--- OUTSIDE RECORDS SUMMARY | 2025-04-05 15:59 | XMS_ITS | Continuity of Care Document ---
Author Organization [facility] Address [address] [facility] [place] [address] [place] [address] Problems Condition ICD9 code ICD10 code SNOMED code Start Date End Date S tatus Transient cerebral ischemic attack, unspecified G45.9 12/29/2024 Active Other speech disturbances R47.89 12/29/2024 Active Major depressive disorder, recurrent, unspecified F33.9 12/29/2024 Active Unspecified dementia without behavioral disturbance F03.90 12/29/2024 Active Hyperlipidemia, unspecified E78.5 12/29/2024 Active Essential (primary) hypertension I10 12/29/2024 Active Gastro-esophageal reflux disease without esophagitis K21.9 12/29/2024 Active Dysarthria and anarthria R47.1 12/29/2024 Active Difficulty in walking, not elsewhere classified R26.2 12/29/2024 Active Need for assistance with personal care Z74.1 12/29/2024 Active Cognitive communication deficit R41.841 12/29/2024 Active Results No Results Allergies, adverse reactions, alerts Substance Reaction Date Status Type No allergies have been recorded Non Drug Medications Medication Instructions Route Dosage Frequency Start Date Stop Date Indications Status acetaminophen 500 mg tablet (acetaminophen) ORAL, Every 4 hours as needed, TAKE 2 TABLETS (1000MG) BY MOUTH EVERY 4 HOURS PRN PAIN AND/OR FEVER ORAL 1.0 4.0 h 025 2024 Active amlodipine 2.5 mg tablet (amlodipine) ORAL, Every day, TAKE 1 TABLET BY MOUTH ONCE DAILY (HTN) ORAL 1.0 1.0 d 025 2024 Active azelastine 137 mcg (0.1 %) spray,non-aeroso l (azelastine) NASAL, Twice a day, USE 2 SPRAYS INTO EACH NOSTRIL TWICE DAILY FOR ALLERGY NASAL 1.0 12.0 h 2024 Active benzonatate 100 mg capsule (benzonatate) ORAL, Three times a day as needed, TAKE 1 CAPSULE BY MOUTH 3 TIMES DAILY NEEDED FOR COUGH ORAL 1.0 8.0 h 2024 Active bupropion HCl 150 mg tablet sustained-releas e 12 hr (bupropion HCl) ORAL, Every morning, TAKE 1 TABLET BY MOUTH EVERY MORNING FOR DEPRESSION *DO NOT CHEW/CRUSH/CUT * ORAL 1.0 2024 Active donepezil 5 mg tablet (donepezil) ORAL, At bedtime, TAKE 1 TABLET BY MOUTH AT BEDTIME FOR DEMENTIA ORAL 1.0 2024 Active enoxaparin 40 mg/0.4 mL syringe (enoxaparin) SUBCUT, Every morning, INJECT 0.4 ML (40MG) SUB-Q EVERY MORNING FOR DVT PREVENTION *CHART SITE* 1.0 2024 Active escitalopram oxalate 20 mg tablet (escitalopram oxalate) ORAL, Every morning, TAKE 1 TABLET BY MOUTH EVERY MORNING FOR ANXIETY/DEPRES MILAGRO ORAL 1.0 2024 Active gabapentin 100 mg capsule (gabapentin) ORAL, At bedtime, TAKE 1 CAPSULE BY MOUTH AT BEDTIME FOR NEUROPATHY PAIN ORAL 1.0 2024 Active melatonin 5 mg tablet (melatonin) ORAL, At bedtime as needed, TAKE 1 TABLET BY MOUTH AT BEDTIME NEEDED FOR INSOMNIA ORAL 1.0 2024 Active omeprazole 40 mg capsule,delayed release(DR/EC) (omeprazole) ORAL, Every morning, TAKE 1 CAPSULE BY MOUTH EVERY MORNING FOR GERD ORAL 1.0 2024 Active rosuvastatin 20 mg tablet (rosuvastatin) ORAL, Every morning, TAKE 1 TABLET BY MOUTH EVERY MORNING FOR HLD ORAL 1.0 2024 Active Vital Signs Date Vital Result Comment 02/01/2025 07:38 PM Oxygen Saturation (55640-9) 96 % Respiratory Rate (9279-1) 18 /min Heart Rate (8867-4) 89 /min Blood Pressure Systolic (8480-6) 128 mm[Hg] Blood Pressure Diastolic (8462-4) 84 mm[Hg] 01/31/2025 12:52 PM Oxygen Saturation (95350-0) 97 % Respiratory Rate (9279-1) 18 /min Heart Rate (8867-4) 55 /min Blood Pressure Systolic (8480-6) 143 mm[Hg] Blood Pressure Diastolic (8462-4) 69 mm[Hg] 01/29/2025 12:43 PM Oxygen Saturation (44486-5) 98 % Respiratory Rate (9279-1) 18 /min Heart Rate (8867-4) 58 /min Blood Pressure Systolic (8480-6) 153 mm[Hg] Blood Pressure Diastolic (8462-4) 66 mm[Hg] 01/29/2025 12:42 PM Temperature (8310-5) 97.4 [degF] 01/28/2025 02:02 PM Body mass index (BMI) [Ratio] (391 56-5) 0.0 kg/m2 Body Weight (95255-5) 154 [lb_av] 01/28/2025 12:43 PM Respiratory Rate (9279-1) 18 /min Heart Rate (8867-4) 59 /min 01/28/2025 12:42 PM Oxygen Saturation (38043-5) 96 % Blood Pressure Systolic (8480-6) 142 mm[Hg] Blood Pressure Diastolic (8462-4) 62 mm[Hg] 01/27/2025 09:30 PM Oxygen Saturation (36210-5) 97 % Respiratory Rate (9279-1) 16 /min Heart Rate (8867-4) 79 /min Blood Pressure Systolic (8480-6) 130 mm[Hg] Blood Pressure Diastolic (8462-4) 75 mm[Hg] 01/26/2025 07:17 PM Oxygen Saturation (07184-2) 95 % Respiratory Rate (9279-1) 18 /min Heart Rate (8867-4) 60 /min Blood Pressure Systolic (8480-6) 137 mm[Hg] Blood Pressure Diastolic (8462-4) 81 mm[Hg] 01/23/2025 09:38 PM Oxygen Saturation (28464-6) 98 % Respiratory Rate (9279-1) 18 /min 01/23/2025 09:37 PM Heart Rate (8867-4) 75 /min Blood Pressure Systolic (8480-6) 122 mm[Hg] Blood Pressure Diastolic (8462-4) 76 mm[Hg] 01/23/2025 04:26 PM Respiratory Rate (9279-1) 18 /min Heart Rate (8867-4) 64 /min Blood Pressure Systolic (8480-6) 147 mm[Hg] Blood Pressure Diastolic (8462-4) 70 mm[Hg] 01/23/2025 01:09 PM Blood Pressure Systolic (8480-6) 1 22 mm[Hg] Blood Pressure Diastolic (8462-4) 69 mm[Hg] 01/23/2025 01:08 PM Temperature (8310-5) 98 [degF] Oxygen Saturation (41986-9) 97 % Respiratory Rate (9279-1) 18 /min Heart Rate (8867-4) 66 /min 01/23/2025 11:55 AM Body mass index (BMI) [Ratio] (391 56-5) 0.0 kg/m2 Body Weight (16901-0) 150 [lb_av] 01/22/2025 02:21 PM Temperature (8310-5) 97.9 [degF] Oxygen Saturation (51114-4) 96 % Respiratory Rate (9279-1) 18 /min Heart Rate (8867-4) 72 /min Blood Pressure Systolic (8480-6) 136 mm[Hg] Blood Pressure Diastolic (8462-4) 62 mm[Hg] 01/21/2025 05:20 PM Oxygen Saturation (70163-4) 99 % 01/20/2025 10:14 AM Temperature (8310-5) 97.6 [degF] 01/19/2025 12:36 PM Temperature (8310-5) 97.8 [degF] 01/17/2025 12:22 PM Temperature (8310-5) 98.1 [degF] Social History No smoking Hx information available Encounters Type CPT Code Date Location Provider Indication s encounter report 12/29/2024 09:2 8 AM - 02/06/2025 10:25 AM Alfonso Kat MD
--- OUTSIDE RECORDS SUMMARY | 2025-04-05 16:00 | XMS_ITS | Clinical Summary ---
Author Organization [facility] [employer] Address [address] [place] [address] Care Team Providers Care Edge Worker Name Role Phone Ryan Aldana DO Primary Care Provider + Source Comments [facility],non-owned Affiliates and Associated Physician Practices is amultiple site organization consisting of ambulatory clinics and hospital sitesin [place], [place], [place] and [place]. This disclosure is being madepursuant to the Care Everywhere program and may not contain all information available regarding this patient. Last updated 18.[facility] Allergies Active Allergy Reactions Criticality Noted Date Comments Olanzapine Other High 06/28/2024 Encephalopathy Medications * Be aware that medications may not be up to date on this document. Alwaysverify current medications with the patient. buPROPion XL 24hr (Wellbutrin-XL ) 150 MG tablet Take 1 (one) tablet by mouth once daily Active escitalopram (Lexapro) 20 MG tablet Take 1 (one) tablet by mouth once daily Active lisinopril-hyd roCHLOROthiazi de (Prinzide; Zestoretic) 10-12.5 MG tablet Take 1 (one) tablet by mouth once daily Active pantoprazole EC (Protonix) 40 MG tablet Take 1 (one) tablet by mouth once daily Active rosuvastatin (Crestor) 20 MG tablet Take 1 (one) tablet by mouth once daily Active azelastine (Astelin) 0.1 % nasal spray [place] 2 (two) sprays into each nostril 2 times daily Active donepezil (Aricept) 5 MG tablet Take 1 (one) tablet by mouth at bedtime Active acetaminophen (Tylenol) 500 MG tablet Take 2 (two) tablets by mouth every 4 hours as needed for Fever or Pain Maximum allowable Acetaminophen amount = 4 Grams (4000 mg) / 24 hours. Active benzonatate (Tessalon) 100 MG capsule Take 1 (one) capsule by mouth 3 times daily as needed for Cough Active Additional Information Patient not taking.Reported on 03/14/2025 clopidogrel (plaVIX) 75 MG tablet Take 1 (one) tablet by mouth once daily 5 Active amLODIPine (Norvasc) 2.5 MG tablet Take 1 (one) tablet by mouth once daily 5 Active brexpiprazole (Rexulti) 0.5 MG tablet Take 1 (one) tablet by mouth once daily 5 Active omeprazole (PriLOSEC) 40 MG capsule 5 Active acetaminophen- codeine (Tylenol #3) 300-30 MG tablet Take 1 (one) tablet by mouth 4 times daily as needed For pain. 5 Active Active Problems Problem Noted Date Diagnosed Date Bilateral foot pain 12/26/2024 Assessment & Plan (12/29/2024 1:04 PM CDT): -Noticed w/ weight bearing -Mostly w/ dorsiflexion -Intermittent. 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 SIADH post TIA vs. nutritional --Trend Assessment & Plan (12/29/2024 1:01 PM CDT): -Ddx: Mild, possibly lab variation vs. SIADH post TIA vs. nutritional --Trend Assessment & Plan (12/29/2024 12:59 PM CDT): -Ddx: Mild, possibly lab variation vs. SIADH post TIA vs. nutritional --Trend Assessment & Plan (12/27/2024 12:40 PM CDT): -Ddx: Mild, possibly lab variation vs. SIADH post TIA vs. nutritional --Trend Assessment & Plan (12/26/2024 1:01 PM CDT): -Ddx: Mild, possibly lab variation vs. SIADH post TIA vs. nutritional --Trend Assessment & Plan (12/25/2024 7:47 AM CDT): -Ddx: Mild, possibly lab variation vs. SIADH post TIA vs. nutritional --Trend TIA (transient ischemic attack) 12/25/2024 Assessment & Plan (02/11/2025 10:15 AM CDT): -Continue antiplatelet therapy with plavix -Continue high intensity statin therapy -Risk factor optimization-bp, hld control by pcp -Start PT/OT/ST -Obtain 14 day school lunch monitor -expand ddx due to persistent symptoms (some have resolved)-ref neuro movement team, MRI c-spine, ref to neurosurgery -Educated pt on healthy lifestyle, medication compliance, and worrisome signs and symptoms to call 911 for. Assessment & Plan (12/29/2024 1:04 PM CDT): -Etiology: Ischemic TIA presumed -Neg w/u: A1c, UA, EtOH, CBC, Vitals, CTH, MRIb -Pos w/u: Low HDL --Neuro-stroke consult, f/u OP ~01/07 --Cont. DAPT x3wks (EOT ~01/14) then Plavix solely --Cont. statin --BP control --PT/OT/SHEET ROCK HANGER recs for ARU given weakness and significant change from bl --12/25: ARU declined, pending eval of swing bed --12/26: Swing bed full, SW talking w/ family about other facilities --12/28: Accepted to SNF for 12/29 Assessment & Plan (12/29/2024 1:01 PM CDT): -Etiology: Ischemic TIA presumed -Neg w/u: A1c, UA, EtOH, CBC, Vitals, CTH, MRIb -Pos w/u: Low HDL --Neuro-stroke consult, f/u OP ~01/07 --Cont. DAPT x3wks (EOT ~01/14) then Plavix solely --Cont. statin --BP control --PT/OT/SHEET ROCK HANGER recs for ARU given weakness and significant change from bl --12/25: ARU declined, pending eval of swing bed --12/26: Swing bed full, SW talking w/ family about other facilities --12/28: Accepted to SNF for 12/29 Assessment & Plan (12/29/2024 12:59 PM CDT): -Etiology: Ischemic TIA presumed -Neg w/u: A1c, UA, EtOH, CBC, Vitals, CTH, MRIb -Pos w/u: Low HDL --Neuro-stroke consult, f/u OP ~01/07 --Cont. DAPT x3wks (EOT ~01/14) then Plavix solely --Cont. statin --BP control --PT/OT/SHEET ROCK HANGER recs for ARU given weakness and significant change from bl --12/25: ARU declined, pending eval of swing bed --12/26: Swing bed full, SW talking w/ family about other facilities Assessment & Plan (12/27/2024 12:40 PM CDT): -Etiology: Ischemic TIA presumed -Neg w/u: A1c, UA, EtOH, CBC, Vitals, CTH, MRIb -Pos w/u: Low HDL --Neuro-stroke consult, f/u OP ~01/07 --Cont. DAPT x3wks (EOT ~01/14) then Plavix solely --Cont. statin --BP control --PT/OT/SHEET ROCK HANGER recs for ARU given weakness and significant change from bl --12/25: ARU declined, pending eval of swing bed --12/26: Swing bed full, SW talking w/ family about other facilities Assessment & Plan (12/26/2024 1:01 PM CDT): -Etiology: Ischemic TIA presumed -Neg w/u: A1c, UA, EtOH, CBC, Vitals, CTH, MRIb -Pos w/u: Low HDL --Neuro-stroke consult, f/u OP ~01/07 --Cont. DAPT x3wks (EOT ~01/14) then Plavix solely --Cont. statin --BP control --PT/OT/SHEET ROCK HANGER recs for ARU given weakness and significant change from bl --12/25: ARU declined, pending eval of swing bed --12/26: Swing bed full, SW talking w/ family about other facilities Assessment & Plan (12/25/2024 2:25 PM CDT): -Etiology: Ischemic TIA presumed -Neg w/u: A1c, UA, EtOH, CBC, Vitals, CTH, MRIb -Pos w/u: Low HDL --Neuro-stroke consult, f/u OP ~01/07 --Cont. DAPT x3wks (EOT ~01/14) then Plavix solely --Cont. statin --BP control --PT/OT/SHEET ROCK HANGER recs for ARU given weakness and significant change from bl --12/25: ARU declined, pending eval of swing bed Facial droop 12/21/2024 Assessment & Plan (12/29/2024 1:04 PM CDT): -Etiology: Ischemic TIA presumed -Neg w/u: A1c, UA, EtOH, CBC, Vitals, CTH, MRIb -Pos w/u: Low HDL --Neuro-stroke consult, f/u OP ~01/07 --Cont. DAPT x3wks (EOT ~01/14) then Plavix solely --Cont. statin --BP control --PT/OT/SHEET ROCK HANGER recs for ARU given weakness and significant change from bl --12/25: ARU declined, pending eval of swing bed --12/26: Swing bed full, SW talking w/ family about other facilities --12/28: Accepted to SNF for 12/29 Assessment & Plan (12/29/2024 1:01 PM CDT): -Etiology: Ischemic TIA presumed -Neg w/u: A1c, UA, EtOH, CBC, Vitals, CTH, MRIb -Pos w/u: Low HDL --Neuro-stroke consult, f/u OP ~01/07 --Cont. DAPT x3wks (EOT ~01/14) then Plavix solely --Cont. statin --BP control --PT/OT/SHEET ROCK HANGER recs for ARU given weakness and significant change from bl --12/25: ARU declined, pending eval of swing bed --12/26: Swing bed full, SW talking w/ family about other facilities --12/28: Accepted to SNF for 12/29 Assessment & Plan (12/29/2024 12:59 PM CDT): -Etiology: Ischemic TIA presumed -Neg w/u: A1c, UA, EtOH, CBC, Vitals, CTH, MRIb -Pos w/u: Low HDL --Neuro-stroke consult, f/u OP ~01/07 --Cont. DAPT x3wks (EOT ~01/14) then Plavix solely --Cont. statin --BP control --PT/OT/SHE[employer] ROCK HANGER recs for ARU given weakness and significant change from bl --12/25: ARU declined, pending eval of swing bed --12/26: Swing bed full, SW talking w/ family about other facilities Assessment & Plan (12/27/2024 12:40 PM CDT): -Etiology: Ischemic TIA presumed -Neg w/u: A1c, UA, EtOH, CBC, Vitals, CTH, MRIb -Pos w/u: Low HDL --Neuro-stroke consult, f/u OP ~01/07 --Cont. DAPT x3wks (EOT ~01/14) then Plavix solely --Cont. statin --BP control --PT/OT/SHEET ROCK HANGER recs for ARU given weakness and significant change from bl --12/25: ARU declined, pending eval of swing bed --12/26: Swing bed full, SW talking w/ family about other facilities Assessment & Plan (12/26/2024 1:01 PM CDT): -Etiology: Ischemic TIA presumed -Neg w/u: A1c, UA, EtOH, CBC, Vitals, CTH, MRIb -Pos w/u: Low HDL --Neuro-stroke consult, f/u OP ~01/07 --Cont. DAPT x3wks (EOT ~01/14) then Plavix solely --Cont. statin --BP control --PT/OT/SHE[employer] ROCK HANGER recs for ARU given weakness and significant change from bl --12/25: ARU declined, pending eval of swing bed --12/26: Swing bed full, SW talking w/ family about other facilities Assessment & Plan (12/25/2024 2:25 PM CDT): -Etiology: Ischemic TIA presumed -Neg w/u: A1c, UA, EtOH, CBC, Vitals, CTH, MRIb -Pos w/u: Low HDL --Neuro-stroke consult, f/u OP ~01/07 --Cont. DAPT x3wks (EOT ~01/14) then Plavix solely --Cont. statin --BP control --PT/OT/SHE[employer] R[employer]ANGER recs for ARU given weakness and significant change from bl --12/25: ARU declined, pending eval of swing bed Slurred speech 12/21/2024 Assessment & Plan (12/29/2024 1:04 PM CDT): -Etiology: Ischemic TIA presumed -Neg w/u: A1c, UA, EtOH, CBC, Vitals, CTH, MRIb -Pos w/u: Low HDL --Neuro-stroke consult, f/u OP ~01/07 --Cont. DAPT x3wks (EOT ~01/14) then Plavix solely --Cont. statin --BP control --PT/OT/SHEET ROCK HANGER recs for ARU given weakness and significant change from bl --12/25: ARU declined, pending eval of swing bed --12/26: Swing bed full, SW talking w/ family about other facilities --12/28: Accepted to SNF for 12/29 Assessment & Plan (12/29/2024 1:01 PM CDT): -Etiology: Ischemic TIA presumed -Neg w/u: A1c, UA, EtOH, CBC, Vitals, CTH, MRIb -Pos w/u: Low HDL --Neuro-stroke consult, f/u OP ~01/07 --Cont. DAPT x3wks (EOT ~01/14) then Plavix solely --Cont. statin --BP control --PT/OT/SHEET ROCK HANGER recs for ARU given weakness and significant change from bl --12/25: ARU declined, pending eval of swing bed --12/26: Swing bed full, SW talking w/ family about other facilities --12/28: Accepted to SNF for 12/29 Assessment & Plan (12/29/2024 12:59 PM CDT): -Etiology: Ischemic TIA presumed -Neg w/u: A1c, UA, EtOH, CBC, Vitals, CTH, MRIb -Pos w/u: Low HDL --Neuro-stroke consult, f/u OP ~01/07 --Cont. DAPT x3wks (EOT ~01/14) then Plavix solely --Cont. statin --BP control --PT/OT/SHEET ROCK HANGER recs for ARU given weakness and significant change from bl --12/25: ARU declined, pending eval of swing bed --12/26: Swing bed full, SW talking w/ family about other facilities Assessment & Plan (12/27/2024 12:40 PM CDT): -Etiology: Ischemic TIA presumed -Neg w/u: A1c, UA, EtOH, CBC, Vitals, CTH, MRIb -Pos w/u: Low HDL --Neuro-stroke consult, f/u OP ~01/07 --Cont. DAPT x3wks (EOT ~01/14) then Plavix solely --Cont. statin --BP control --PT/OT/SHEET ROCK HANGER recs for ARU given weakness and significant change from bl --12/25: ARU declined, pending eval of swing bed --12/26: Swing bed full, SW talking w/ family about other facilities Assessment & Plan (12/26/2024 1:01 PM CDT): -Etiology: Ischemic TIA presumed -Neg w/u: A1c, UA, EtOH, CBC, Vitals, CTH, MRIb -Pos w/u: Low HDL --Neuro-stroke consult, f/u OP ~01/07 --Cont. DAPT x3wks (EOT ~01/14) then Plavix solely --Cont. statin --BP control --PT/OT/SHEET ROCK HANGER recs for ARU given weakness and significant change from bl --12/25: ARU declined, pending eval of swing bed --12/26: Swing bed full, SW talking w/ family about other facilities Assessment & Plan (12/25/2024 2:25 PM CDT): -Etiology: Ischemic TIA presumed -Neg w/u: A1c, UA, EtOH, CBC, Vitals, CTH, MRIb -Pos w/u: Low HDL --Neuro-stroke consult, f/u OP ~01/07 --Cont. DAPT x3wks (EOT ~01/14) then Plavix solely --Cont. statin --BP control --PT/OT/SHEET ROCK HANGER recs for ARU given weakness and significant change from bl --12/25: ARU declined, pending eval of swing bed Primary hypertension 12/21/2024 Assessment & Plan (12/29/2024 1:04 PM CDT): -Cont. lighter captain HCTZ-lisinopril Assessment & Plan (12/29/2024 1:01 PM CDT): -Cont. lighter captain HCTZ-lisinopril Assessment & Plan (12/29/2024 12:59 PM CDT): -Cont. lighter captain HCTZ-lisinopril Assessment & Plan (12/27/2024 12:40 PM CDT): -Cont. lighter captain HCTZ-lisinopril Assessment & Plan (12/26/2024 1:01 PM CDT): -Cont. lighter captain HCTZ-lisinopril Assessment & Plan (12/25/2024 7:47 AM CDT): -Cont. lighter captain HCTZ-lisinopril MDD (major depressive disorder) 12/21/2024 Assessment & Plan (12/29/2024 1:04 PM CDT): -Patient follows OP psych through [facility] -cont donepezil, OP f/u -Cont. lighter captain Lexapro, Wellbutrin -Likely lacks decisional capacity based on prior psych notes. Would contact family for consent. Assessment & Plan (12/29/2024 1:01 PM CDT): -Patient follows OP psych through [facility] -cont donepezil, OP f/u -Cont. lighter captain Lexapro, Wellbutrin -Likely lacks decisional capacity based on prior psych notes. Would contact family for consent. Assessment & Plan (12/29/2024 12:59 PM CDT): -Patient follows OP psych through [facility] -cont donepezil, OP f/u -Cont. lighter captain Lexapro, Wellbutrin -Likely lacks decisional capacity based on prior psych notes. Would contact family for consent. Assessment & Plan (12/27/2024 12:40 PM CDT): -Patient follows OP psych through [facility] -cont donepezil, OP f/u -Cont. lighter captain Lexapro, Wellbutrin -Likely lacks decisional capacity based on prior psych notes. Would contact family for consent. Assessment & Plan (12/26/2024 1:01 PM CDT): -Patient follows OP psych through [facility] -cont donepezil, OP f/u -Cont. lighter captain Lexapro, Wellbutrin -Likely lacks decisional capacity based on prior psych notes. Would contact family for consent. Assessment & Plan (12/25/2024 7:47 AM CDT): -Cont. lighter captain Lexapro GERD (gastroesophageal reflux disease) Assessment & Plan (12/29/2024 1:04 PM CDT): -cont. lighter captain PPI Assessment & Plan (12/29/2024 1:01 PM CDT): -cont. lighter captain PPI Assessment & Plan (12/29/2024 12:59 PM CDT): -cont. lighter captain PPI Assessment & Plan (12/27/2024 12:40 PM CDT): -cont. lighter captain PPI Assessment & Plan (12/26/2024 1:01 PM CDT): -cont. lighter captain PPI Assessment & Plan (12/25/2024 7:47 AM CDT): -cont. lighter captain PPI Dementia 12/21/2024 Assessment & Plan (12/29/2024 1:04 PM CDT): -Patient follows OP psych through [facility] -cont donepezil, OP f/u -Cont. lighter captain Lexapro, Wellbutrin -Likely lacks decisional capacity based on prior psych notes. Would contact family for consent. Assessment & Plan (12/29/2024 1:01 PM CDT): -Patient follows OP psych through [facility] -cont donepezil, OP f/u -Cont. lighter captain Lexapro, Wellbutrin -Likely lacks decisional capacity based on prior psych notes. Would contact family for consent. Assessment & Plan (12/29/2024 12:59 PM CDT): -Patient follows OP psych through [facility] -cont donepezil, OP f/u -Cont. lighter captain Lexapro, Wellbutrin -Likely lacks decisional capacity based on prior psych notes. Would contact family for consent. Assessment & Plan (12/27/2024 12:40 PM CDT): -Patient follows OP psych through [facility] -cont donepezil, OP f/u -Cont. lighter captain Lexapro, Wellbutrin -Likely lacks decisional capacity based on prior psych notes. Would contact family for consent. Assessment & Plan (12/26/2024 1:01 PM CDT): -Patient follows OP psych through [facility] -cont donepezil, OP f/u -Cont. lighter captain Lexapro, Wellbutrin -Likely lacks decisional capacity based on prior psych notes. Would contact family for consent. Assessment & Plan (12/25/2024 7:47 AM CDT): -Hx of, cont donepezil, OP f/u Assessment & Plan (12/24/2024 11:35 AM CDT): Stable; continue to monitor Assessment & Plan (12/24/2024 8:09 AM CDT): {HCCREFRESHBPA (Optional):38267} Assessment & Plan (12/23/2024 8:06 AM CDT): {HCCREFRESHBPA (Optional):24478} Assessment & Plan (12/22/2024 8:04 AM CDT): {HCCREFRESHBPA (Optional):55284} Assessment & Plan (12/22/2024 7:30 AM CDT): Assessment & Plan (12/21/2024 9:54 PM CDT): {HCCREFRESHBPA (Optional):54885} HLD (hyperlipidemia) 12/21/2024 Assessment & Plan (12/29/2024 1:04 PM CDT): -Cont. lighter captain statin Assessment & Plan (12/29/2024 1:01 PM CDT): -Cont. lighter captain statin Assessment & Plan (12/29/2024 12:59 PM CDT): -Cont. lighter captain statin Assessment & Plan (12/27/2024 12:40 PM CDT): -Cont. lighter captain statin Assessment & Plan (12/26/2024 1:01 PM CDT): -Cont. lighter captain statin Assessment & Plan (12/25/2024 7:47 AM CDT): -Cont. lighter captain statin Resolved Problems Problem Noted Date Diagnosed Date Resolved Date Left-sided weakness 12/21/2024 12/22/19 25 Encounters Date Type Department Care Team Description 04/01/2025 Telephone [facility] - Centralized Scheduling [address] [place] [phone] Andrea Bueno MD Appointment ([facility] for patients Lorie diego, to schedule with Dr Bueno on 04/18/2025 @ 10:40 am (80Min appt) per Ren[facility] staff message) 03/14/2025 9:30 AM TECHNICAL INTERN Office Visit [facility] - Neurosurgery [address] [place] [address] Natasha Davidson PA-C Kemp, Joanna M, MD Cervical stenosis of spinal canal (Primary Dx) 03/14/2025 Travel 03/08/2025 Travel 03/07/2025 2:00 PM TECHNICAL INTERN Office Visit [facility] - Neurology [address] [place] [phone] Jennifer Marcelino APRN-RUMPER ERRONEOUS ENCOUNTER--DISREGAR D (Primary Dx) 03/07/2025 Travel 03/01/2025 Telephone [facility] - Neurology [address] [place] [phone] Natasha Davidson PA-C Results 03/01/2025 Results Follow-Up [facility] - Neurology [address] [place] [phone] Natasha Davidson PA-C 02/27/2025 Travel 02/24/2025 1:39 PM CDT - 02/24/2025 11:59 PM CDT Hospital Encounter [facility] Health Imaging Services - MRI [address] [place] [address] Natasha Davidson PA-C Discharge Disposition: Home or Self Care 02/20/2025 Telephone [facility] - Centralized Scheduling [address] [place] [phone] Andrea Bueno MD Reschedule Appointment 02/18/2025 Telephone [facility] - Centralized Scheduling [address] [place] [phone] Andrea Bueno MD Reschedule Appointment 02/13/2025 Travel 02/11/2025 8:30 AM CDT Office Visit [facility] - Neurology [address] [place] [phone] Natasha Davidson PA-C TIA (transient ischemic attack) (Primary Dx); Cognitive decline; Tremor; Spinal stenosis of cervical region; Abnormal CT scan 02/11/2025 Travel 01/28/2025 Travel 01/11/2025 Telephone [facility] - Centralized Scheduling [address] [place] [address] Natasha Davidson PA-C Follow-up (LVM for [facility]Lorie, [facility] Davidson, the facility will have to inform her how long Rosana will be in the facility) 01/11/2025 Travel from Last 3 Months Social History Tobacco Use Types Packs/Day Years Used Date Smoking Tobacco: Never Smokeless Tobacco: Never Tobacco Cessation:Counseling Given: No Alcohol Use Standard Drinks/Week Comments Never 0 (1 standard drink = 0.6 oz pur e alcohol) AUDIT-C Answer Date Recorded Q1: How often do you have a drink containing alcohol? Never 12/22/2024 Q2: How many drinks containi ng alcohol do you have on a typical day when you are drinking? Patient does not drink Q3: How often do you have si x or more drinks on one occasion? Never 12/22/2024 Overall Financial Resource Strain (CARDIA) Answe r Date Recorded How hard is it for you to pa y for the very basics like food, housing, medical care, and heating? Not hard at all 12/22/2024 [facility] - Occupational Stress Questionnaire Answer Date Recorded Do you feel stress - tense, restless, nervous, or anxious, or unable to sleep at night because your mind is troubled all the time - these days? Not at all 12/22/2024 Hunger Vital Sign Answer Date Recorded Within the past 12 months, y ou worried that your food would run out before you got the money to buy more. Never true 12/23/19 25 Within the past 12 months, t he food you bought just didn't last and you didn't have money to get more. Never true 12/22/2024 PRAPARE - Transportation Answer Date Re corded In the past 12 months, has l ack of transportation kept you from medical appointments or from getting medications? No 12/01 In the past 12 months, has l ack of transportation kept you from meetings, work, or from getting things needed for daily living? No 12/22/2024 Housing Stability Vital Sign Answer Taras e Recorded In the last 12 months, was t here a time when you were not able to pay the mortgage or rent on time? No 12/22/2024 In the past 12 months, how m any times have you moved where you were living? 1 12/22/2024 At any time in the past 12 m [facility], were you homeless or living in a custodial (including now)? No 12/22/2024 Comments Unknown Sex and Gender Information Value Date Recorded Sex Assigned at Not on file Legal Sex Female 10:47 AM TECHNICAL INTERN Gender Identity Not on file Sexual Orientation Not on file Last Filed Vital Signs Vital Sign Reading Time Taken Comments Blood Pressure 129/70 03/14/2025 9:24 AM TECHNICAL INTERN Pulse 68 03/14/2025 9:24 AM TECHNICAL INTERN Temperature 36.3 C (97.4 F) 03/14/2025 9:24 AM TECHNICAL INTERN Respiratory Rate 14 02/11/2025 8:09 AM CDT Oxygen Saturation 95% 03/14/2025 9:24 AM TECHNICAL INTERN Inhaled Oxygen Concentration - - Weight 69.4 kg (153 lb) 03/14/2025 9:24 AM TECHNICAL INTERN Height 149.9 cm (4' 11) 03/14/2025 9:24 AM TECHNICAL INTERN Body Mass Index 30.9 03/14/2025 9:24 AM TECHNICAL INTERN Plan of Treatment Upcoming Encounters Date Type Department Care Team (Late st Contact Info) Description 04/18/2025 10:40 AM TECHNICAL INTERN Office Visit [facility] - Neurology [address] [place] [address], [place] [phone] Natasha Davidson PA-C [address] [place] [address] [address] [place] [phone] Andrea Bueno MD [address] [place] [phone] 05/13/2025 8:00 AM TECHNICAL INTERN Office Visit [facility] - Neurology [address] [place] [address], [place] [phone] Jennifer Marcelino DRIVER RECRUITER-RUMPER [address] [facility] [address] [place] [address] 09/12/2025 8:30 AM CDT Office Visit [facility] - Neurosurgery [address] [place] [phone] Natasha Davidson PA-C [address] [facility] [address] [place] [address] Telma Nguyễn MD [address] [facility] [address] [place] [address] Health Maintenance Due Date Last Done Comments BONE DENSITY TESTING 1950 MEDICARE AWV 12 MONTHS 1950 DTAP/TDAP/TD VACCINES (1 - Tdap) 11/09/1967 PNEUMOCOCCAL VACCINE 50+ (1 of 1 - PCV) 1998 ZOSTER VACCINE (1 of 2) 1998 Respiratory Syncytial Virus (RSV) Vaccine Pt: or over 60 yrs (1 - 1-dose 75+ series) 11/09/2023 DEPRESSION SCREENING 05/02/2024 COVID-19 VACCINE (2 - 2024- season) 2024 08/02/2021 INFLUENZA VACCINE (#1) 2024 , 02/25/2023, 04/07/2020, Additional history exists HEPATITIS C SCREENING Completed 07/02/2022 HEPATITIS B VACCINE Aged Out No longe r eligible based on patient's age to complete this topic HIB VACCINE Aged Out No longer eligi ble based on patient's age to complete this topic HPV VACCINE Aged Out No longer eligi ble based on patient's age to complete this topic MENINGOCOCCAL (Group B) VACCINE SHARED DECISION-MAKING Aged Out No longer eligible based on patient's age to complete this topic MENINGOCOCCAL GROUPS A/C/Y/W VACCINE Aged Out No longer eligible based on patient's age to complete this topic Procedures Procedure Name Priority Date/Time Associated Diagnosis Comments AMB REFERRAL TO NEUROSURGERY Routine 03/14/2025 1:05 PM TECHNICAL INTERN Spinal stenosis of cervical region MRI CERVICAL SPINE WO CONTRAST Routine 02/24/2025 2:19 PM CDT Spinal stenosis of cervical region from Last 3 Months Results * Ref to Neurosurgery - [facility] (03/14/2025 1:05 PM TECHNICAL INTERN) us Natasha Davidson PA-Mark OUTPATIENT REFERRALS Rita rios Result * MRI Cervical Spine Wo Contrast (02/24/2025 2:19 PM CDT) Anatomical Region Laterality Modality Pelvis Magnetic Resonan ce 02/24/2025 2:21 PM CDT Impressions 02/27/2025 9:39 AM CDT IMPRESSION: Degenerative disc and joint disease as described above. Edited by Mari Brody on 02/27/2025 9:37 AM > Interpreting Provider: Hussein Mi MD on 02/27/2025 9:39 AM Narrative 02/27/2025 9:39 AM CDT PROCEDURE: MRI CERVICAL SPINE WO CONTRAST DATE/TIME OF EXAM: 02/24/2025 2:20 PM CLINICAL INFORMATION: None relevant/not provided if blank. Indication: M48.02: Spinal stenosis of cervical region. Additional History: TECHNIQUE: MRI of the cervical spine was performed without contrast according to standard protocol. FINDINGS: Cervical straightening is noted. Minimal anterolisthesis of C3 on C4 and C4 on C5 is seen. Multilevel facet osteoarthritis seen. Vertebral bodies are normal in height without evidence of compression fractures. Marrow signal intensity is normal. The craniocervical junction and visualized portions of the posterior fossa appear normal. The spinal cord appears normal. Severe degenerative change is seen throughout the spine. No soft tissue abnormality is identified. Normal flow voids are identified in the vertebral arteries. C2-3: There is no disc bulge. There is no central canal stenosis. There is no facet osteoarthritis. There is no uncovertebral joint osteoarthritis. There is no neural foraminal stenosis. C3-4: There is mild diffuse posterior disc bulge. There is mild central canal stenosis. There is moderate bilateral facet osteoarthritis. There is moderate uncovertebral joint osteoarthritis. There is moderate right neural foraminal stenosis. C4-5: There is diffuse posterior disc bulge. There is moderate central canal stenosis. There is moderate to severe bilateral facet osteoarthritis. There is moderate right uncovertebral joint osteoarthritis. There is moderate right and mild left neural foraminal stenosis. C5-6: There is diffuse posterior disc bulge. There is moderate central canal stenosis. There is mild bilateral facet osteoarthritis. There is moderate right and mild left uncovertebral joint osteoarthritis. There is moderate right and mild left neural foraminal stenosis. C6-7: There is diffuse posterior disc bulge. There is moderate to severe central canal stenosis. There is mild left facet osteoarthritis. There is mild to moderate left uncovertebral joint osteoarthritis. There is mild left neural foraminal stenosis. C7-T1: There is no disc bulge. There is no central canal stenosis. There is no facet osteoarthritis. There is no uncovertebral joint osteoarthritis. There is no neural foraminal stenosis. Procedure Note Hussein Mi MD - 02/27/2025 PROCEDURE: MRI CERVICAL SPINE WO CONTRAST DATE/TIME OF EXAM: 02/24/2025 2:20 PM CLINICAL INFORMATION: None relevant/not provided if blank. Indication: M48.02: Spinal stenosis of cervical region. Additional History: TECHNIQUE: MRI of the cervical spine was performed without contrast according to standard protocol. FINDINGS: Cervical straightening is noted. Minimal anterolisthesis of C3 on C4 andC4 on C5 is seen. Multilevel facet osteoarthritis seen. Vertebral bodiesare normal in height without evidence of compression fractures. Marrowsignal intensity is normal. The craniocervical junction and visualized portionsof the posterior fossa appear normal. The spinal cord appears normal.Severe degenerative change is seen throughout the spine. No soft tissue abnormality is identified. Normal flow voids are identified in the vertebral arteries. C2-3: There is no disc bulge. There is no central canal stenosis. Thereis no facet osteoarthritis. There is no uncovertebral joint osteoarthritis. There is no neural foraminal stenosis. C3-4: There is mild diffuse posterior disc bulge. There is mild central canal stenosis. There is moderate bilateral facet osteoarthritis. Thereis moderate uncovertebral joint osteoarthritis. There is moderate rightneural foraminal stenosis. C4-5: There is diffuse posterior disc bulge. There is moderate central canal stenosis. There is moderate to severe bilateral facetosteoarthritis. There is moderate right uncovertebral joint osteoarthritis. There is moderate right and mild left neural foraminal stenosis. C5-6: There is diffuse posterior disc bulge. There is moderate central canal stenosis. There is mild bilateral facet osteoarthritis. There is moderate right and mild left uncovertebral joint osteoarthritis. Thereis moderate right and mild left neural foraminal stenosis. C6-7: There is diffuse posterior disc bulge. There is moderate to severe central canal stenosis. There is mild left facet osteoarthritis. Thereis mild to moderate left uncovertebral joint osteoarthritis. There is mild left neural foraminal stenosis. C7-T1: There is no disc bulge. There is no central canal stenosis. Thereis no facet osteoarthritis. There is no uncovertebral joint osteoarthritis. There is no neural foraminal stenosis. IMPRESSION: Degenerative disc and joint disease as described above. 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
--- OUTSIDE RECORDS SUMMARY | 2025-04-05 16:00 | XMS_ITS | Clinical Summary ---
Author Organization [facility] Address [address] [place] [address] Care Team Providers Care Residence Leasing Agent Name Role Phone Katya Ryan Leonardo CONNER Primary Care Provider + Allergies Active Allergy Reactions Criticality Noted Date Comments Olanzapine Other (see comment) High 06/28/2024 Encephalopathy Medications lisinopril-hydroCHL OROthiazide (ZESTORETIC) 10-12.5 MG tablet Take 1 tablet by mouth daily. Active rosuvastatin (CRESTOR) 20 MG tabletIndications:H yperlipidemia, unspecified hyperlipidemia type Take 1 tablet (20 mg total) by mouth daily. 90 tablet 3 5 Active escitalopram (LEXAPRO) 20 MG tabletIndications:C urrent mild episode of major depressive disorder, unspecified whether recurrent TAKE 1 TABLET BY MOUTH EVERY DAY 90 tablet 5 Active pantoprazole EC (PROTONIX) 40 MG tabletIndications:A cute gastritis without hemorrhage, unspecified gastritis type TAKE 1 TABLET BY MOUTH EVERY DAY 90 tablet 5 Active azelastine (ASTELIN) 0.1 % nasal sprayIndications:No n-seasonal allergic rhinitis, unspecified trigger 2 sprays by Nasal route 2 (two) times daily. Use in each nostril as directed 30 mL 2 5 Active acetaminophen (TYLENOL) 500 MG tablet Take 2 tablets (1,000 mg total) by mouth every 4 (four) hours as needed. Active benzonatate (TESSALON) 100 MG capsule Take 1 capsule (100 mg total) by mouth 3 (three) times daily as needed. 5 Active clopidogrel (PLAVIX) 75 MG tablet Take 1 tablet (75 mg total) by mouth daily. Active donepezil (ARICEPT) 5 MG Tab Take 1 tablet (5 mg total) by mouth nightly at bedtime. Active enoxaparin (LOVENOX) 40 MG/0.4ML Solution Prefilled Syringe Inject 0.4 mLs (40 mg total) into the skin daily. Active gabapentin (NEURONTIN) 100 MG capsule Take 1 capsule (100 mg total) by mouth nightly. Active amLODIPine (NORVASC) 2.5 MG tablet Take 1 tablet (2.5 mg total) by mouth daily. Active ciprofloxacin (CIPRO) 250 MG tablet Take 1 tablet (250 mg total) by mouth 2 (two) times daily. Active buPROPion XL (WELLBUTRIN XL) 300 MG 24 hr tabletIndications:A nxiety Take 1 tablet (300 mg total) by mouth daily. Indications: Feeling Anxious 30 tablet 2 Active brexpiprazole (REXULTI) 0.5 MG tabletIndications:D ementia with mood disturbance, unspecified dementia severity, unspecified dementia type (CMS/HCC) Take 1 tablet (0.5 mg total) by mouth daily. 30 tablet Active Active Problems Problem Noted Date Diagnosed Date Moderate episode of recurrent major depressive d isorder 02/13/2025 Physical deconditioning 06/23/2024 Encephalopathy 06/13/2024 Stress incontinence [...] Encounters Date Type Department Care Team Description 04/05/2025 Travel 04/05/2025 Telephone [facility] [address] [place] [address] Ryan Aldana, DO Advice 03/26/2025 Telephone [facility] Physical Therapy [address] [place] [phone] Chani Velez, CUSTOM PROTECTION OFFICER Reschedule 03/15/2025 Telephone [facility] Physical Therapy [address] [place] [phone] Chani Velez, CUSTOM PROTECTION OFFICER No Show 03/12/2025 12:45 PM TRAFFIC POLICE OFFICER Office Visit [facility] Therapy [address] [place] [phone] Ryan Aldana, DO Chani Velez, CUSTOM PROTECTION OFFICER Balance Problem 03/12/2025 Travel 03/11/2025 Telephone [facility] Family Internal [facility] [address] [place] [address] Ryan Aldana, DO Referral 03/08/2025 Telephone [facility] Physical Therapy [address] [place] [phone] Chani Velez, CUSTOM PROTECTION OFFICER Called To Cancel Office Appt. 03/04/2025 Telephone [facility] Family & Internal [facility] [address] [place] [address] Ryan Aldana, DO Follow Up Call 02/27/2025 12:45 PM CDT Office Visit [facility] Physical Therapy [address] [place] [phone] Ryan Aldana, DO Chani Velez, CUSTOM PROTECTION OFFICER Balance Problem 02/27/2025 Travel 02/27/2025 Telephone [facility] Internal [address] [phone] Ryan Aldana, DO Information 02/26/[address] [phone] Ryan Aldana, DO Error 02/22/2025 2:00 PM CDT Office Visit [facility] Physical Therapy [address] [place] [address] Ryan Aldana, Prosper Putnam PT Initial Evaluation 02/22/2025 Travel 02/20/[address] [phone] Ryan Aldana, DO Referral (Oral surgeon) 02/20/2025 Patient Outreach [address] [phone] Tisha Hernandez RN Hospital Follow Up (F/u wk 2) 02/19/2025 Results Follow-Up [address] [phone] Ryan Aldana, DO XR SHOULDER LT 3V, VITAMIN D, 25 OH, LIPID PANEL, Additional followed-up results: 3 02/15/2025 Telephone [facility] [place] [address] [place] [address] Christy Cornejo, RMA Consult 02/14/2025 12:30 PM CDT Home Care Visit [facility] Home Care [facility] [address] [facility] [facility] [place] [address] [place] [address] Dorina Patel, RN SN NON ADMIT SOC 02/14/[address] [address] Ryan Aldana, DO Information 02/13/2025 10:40 AM CDT Office Visit [facility] Family & Internal [address] [phone] Ryan Aldana, TCM (TCM [facility] ) 02/13/2025 Travel 02/08/2025 Patient Outreach [facility] Family & Internal [address] [phone] Tisha Hernandez, RN TCM (SLU 12/21-12/29; [facility] 12/29-02/06) 02/06/2025 Scan [employer] INFO SRVCS Scanned, [facility] 02/06/[address] [address] Ryan Aldana, Advise 02/05/2025 Telephone [facility] Family & Internal [address] [address] Ryan Aldana, DO Referral 02/05/2025 Patient Outreach [facility] Internal [address] [address] Tisha Hernandez, RN Hospital Follow Up (Inpatient f/u [facility]) 02/02/2025 MyChart Message Enc [facility] & Internal [address] [address] Ryan Aldana, Rosana 01/31/2025 Telephone [facility] Internal [address] [address] Ryan Aldana, Referral 01/29/2025 Patient Outreach [facility] Internal [address] [phone] Tisha Hernandez RN Hospital Follow Up (Inpatient f/u [facility]) 01/28/2025 Telephone [facility] Internal [address] [address] Ryan Aldana, DO Referral 01/23/2025 Patient Outreach [facility] Internal [address] [address] Tisha Hernandez RN Hospital Follow Up (Inpatient f/u [facility]: UPDATED 01/24) 01/16/2025 Telephone [facility] Family Internal [address] [address] Ryan Aldana, DO Information 01/14/2025 Patient Outreach [address] [phone] Tisha Hernandez RN Hospital Follow Up (Inpatient f/u w/ [facility]) 01/07/2025 Patient Outreach [facility] Family Internal [address] [phone] Tisha Hernandez RN Hospital Follow Up (Inpatient f/u [facility]) from Last 3 Months Immunizations Immunization Administration Dates Next Due Fluzone High Dose (IIV, triv alent, 0.5mL) 06/04/2024 Fluzone High Dose - >Age 65 (Prefilled Syringe) 02/25/2023,04/07/2020,04/05/2017,2015,04/15/2011,03/16/2010,01/16/2009 PFIZER COVID-19 (CRAMER CAP), MRNA, LNP-S, PF, 30 MCG/0.3 ML CLAIR-SUCROSE, IM 08/02/2021 Pneumococcal (Pneumovax 23) 04/07/2020 Pneumococcal (Prevnar 13) 04/05/2017 Shingrix 09/22/2017,06/25/2017 Td (Generic) 12/29/2004 Tdap (Generic) 05/23/2018 Zoster (Zostavax) 35940 Unt/0.65Ml 09/26/2017 Family History Medical History Relation [...] Never Smokeless Tobacco: Never Tobacco Cessation:Counseling Given: Yes Comments:na Alcohol Use Standard Drinks/Week Comments Never 0 (1 standard drink = 0.6 oz pur e alcohol) [facility] [employer] Answer Date Recorded In the past 12 months has e [employer], gas, oil, or water [employer] threatened to shut off services in your [...] Date Recorded Patient Health Questionnaire-2 Score 0 12/10/2024 Hunger Vital Sign Answer Date Recorded Within [...] any time in the past 12 m [facility], were you homeless or living in a longterm (including now)? No 06/14/2024 Comments No Sex and Gender Information Value Date Recorded Sex Assigned at Female 11/21/2023 7:23 AM CDT Legal Sex Female 12:45 PM TRAFFIC POLICE OFFICER Gender Identity Female 11/21/2023 7:23 AM CDT Sexual Orientation Straight 11/21/2023 7: 23 AM CDT Last Filed Vital Signs Vital Sign Reading Time Taken Comments Blood Pressure 142/90 02/13/2025 11:52 AM CDT Pulse 74 02/13/2025 11:00 AM CDT Temperature 36.3 C (97.3 F) 02/13/2025 11:00 AM CDT Respiratory Rate 16 02/13/2025 11:00 AM CDT Oxygen Saturation 97% 02/13/2025 11:00 AM CDT Inhaled Oxygen Concentration - - Weight 67 kg (147 lb 9.6 oz) 02/13/2025 11:00 AM CDT Height 147.3 cm (4' 10) 02/13/2025 11:00 AM CDT Body Mass Index 30.85 02/13/2025 11:00 AM CDT Plan of Treatment Upcoming Encounters Date Type Department Care Team (Late st Contact Info) Description 04/16/2025 11:40 AM TRAFFIC POLICE OFFICER Office Visit [facility] Family & Internal Medicine [address] [phone] Ryan Aldana DO [address] [place] [address] 05/03/2025 9:00 AM TRAFFIC POLICE OFFICER Office Visit [facility] [address] [place] [phone] Chris Fuller MD [address] [facility] [address] [facility] [place] [address] Health Maintenance Due Date Last Done Comments Annual Medicare Wellness Visit 2013 Influenza Adult (#1) 2025 06/04/2024, 02/25/2023, 04/07/2020, Additional history exists Dexa Scan (General) 04/26/2025 04/26/2023, RSV Immunization or 60+ Years (1 - 1-dose 75+ series) 09/27/2025 Postponed from 11/09/2023 (Going to Outside Clinic) DTaP, Tdap and Td Vaccines (2 - Td or Tdap) 05/31/2028 05/23/2018, 12/29/2004 Postponed from 05/23/2028 (Per Provider Recommendation) COVID-19 Vaccine ( - 2024- season) 2112 08/02/2021 Postponed from 12/31/2024 (Going to Outside Clinic) Zoster Vaccines Completed 09/26/2017, 08/31, 06/25/2017 Pneumococcal Vaccine: 50+ Years Completed 04/07/2020, 04/05/2017 Hepatitis C Completed 07/02/2022 Colorectal Cancer Screening FIT-DNA (3 Years) Discontinued 01/23/2023, 01/23/2023, 08/09/2019 PHQ-2 (Physician [place]) Completed 12/10/2024 Hepatitis A Vaccines Aged Out No long er eligible based on patient's age to complete this topic Meningococcal B Vaccine Aged Out No l onger eligible based on patient's age to complete this topic Meningococcal Vaccine Aged Out No thomas brandee eligible based on patient's age to complete this topic RSV Immunizations Under 20 Months Aged Out No longer eligible based on patient's age to complete this topic Procedures Procedure Name Priority Date/Time Associated Diagnosis Comments TSH W/REFLEX Routine 02/13/2025 1:26 PM CDT Vitamin D deficiency, unspecified Hyperlipidemia, unspecified hyperlipidemia type Cerebrovascular accident (CVA), unspecified mechanism (CMS/HCC HHS/HCC) CBC W/DIFF AUTOMATED Routine 02/13/2025 1:26 PM CDT Vitamin D deficiency, unspecified Hyperlipidemia, unspecified hyperlipidemia type Cerebrovascular accident (CVA), unspecified mechanism (CMS/HCC HHS/HCC) COMPREHENSIVE METABOLIC PANEL Routine 02/13/2025 1:26 PM CDT Vitamin D deficiency, unspecified Hyperlipidemia, unspecified hyperlipidemia type Cerebrovascular accident (CVA), unspecified mechanism (CMS/HCC HHS/HCC) LIPID PANEL Routine 02/13/2025 1:26 PM CDT Vitamin D deficiency, unspecified Hyperlipidemia, unspecified hyperlipidemia type Cerebrovascular accident (CVA), unspecified mechanism (CMS/HCC HHS/HCC) VITAMIN D, 25 OH Routine 02/13/2025 1:26 PM CDT Vitamin D deficiency, unspecified Hyperlipidemia, unspecified hyperlipidemia type Cerebrovascular accident (CVA), unspecified mechanism (CMS/HCC HHS/HCC) XR SHOULDER LT 3V Routine 02/13/2025 12: 09 PM CDT Acute pain of left shoulder COLLECTION VENOUS BLOOD VENIPUNCTURE Routine 02/13/2025 11:43 AM CDT Vitamin D deficiency, unspecified Hyperlipidemia, unspecified hyperlipidemia type Cerebrovascular accident (CVA), unspecified mechanism (CMS/HCC HHS/HCC) BONE DENSITY GENERIC (SCAN ORDER) 04/26/2023 COLOGUARD (EXACT SCIENCE) Routine 01/23/2023 2:41 PM CDT Screening for malignant neoplasm of colon HEPATITIS C ANTIBODY Routine 07/02/2022 1:43 PM TRAFFIC POLICE OFFICER Screening for lipid disorders Screening for endocrine, metabolic and immunity disorder Need for hepatitis C screening test Annual physical exam from Last 3 Months or Most Recently Relevant to Health Maintenance Results * TSH W/REFLEX (02/13/2025 1:26 PM CDT) TSH 0.754 0.358 - 3.740 uIU/ML 02/14/2025 10:17 AM CDT [facility] [place] 02/13/2025 1:26 PM CDT us Ryan Aldana DO LABORATORY Final Re sult [facility] [place] [address] [place] [address], [place] [phone] * COMPREHENSIVE METABOLIC PANEL (02/13/2025 1:26 PM CDT) SODIUM S/P/B 141 136 - 145 MMOL/L 02/14/2025 10:[address] [facility] POTASSIUM S/P/B 4.4 3.5 - 5.1 MMOL/L 02/14/2025 10:[address] [facility] CHLORIDE S/P/B 103 98 - 107 MMOL/L 02/14/2025 10:[address] [facility] CO2 30.0 21 - 32 MMOL/L 02/14/2025 10:[address] [facility] GLUCOSE 89 70 - 99 MG/DL 02/14/2025 10:[address] [facility] BUN 13 7 - 18 MG/DL 02/14/2025 10:[address] [facility] CREATININE S/P/B 0.63 0.55 - 1.02 MG/DL 02/14/2025 10:[address] [facility] CALCIUM S/P/B 9.5 8.4 - 10.5 MG/DL 02/14/2025 10:[address] [facility] BILIRUBIN TOTAL S/P/B 0.5 0.2 - 1.0 MG/DL 02/14/2025 10:[address] [facility] ALKALINE PHOSPHATASE S/P/B 68 55 - 142 U/L 02/14/2025 10:[address] [facility] AST 19 15 - 37 U/L 02/14/2025 10:[address] [facility] ALT 26 14 - 59 U/L 02/14/2025 10:[address] [facility] TOTAL PROTEIN S/P/B 7.5 6.4 - 8.2 G/DL 02/14/2025 10:[address] [facility] ALBUMIN S/P/B 4.1 3.4 - 5.0 G/DL 02/14/2025 10:[address] [facility] ANION GAP 8.0 5 - 15 MMOL/L 02/14/2025 10:[address] [facility] Comment:REFERENCE RANGE NOT ESTABLISHED OSMOLALITY (CALC) 292 MOSM/KG 025 10:[address] [facility] Comment:REFERENCE RANGE NOT ESTABLISHED GFR ESTIMATE >90 >90 ML/MIN/1. 73 M2 02/14/2025 10:[address] [facility] GFR NOTES GFR REFERENCE S: 02/14/2025 10:[address] [facility] Comment: THE ESTIMATED GFR IS CALCULATED USING THE 2020 CKD-EPI EQUATION. THE FOLLOWING CATEGORIES FOR GRADING RENAL FUNCTION ARE RECOMMENDED BY THE INTERNATIONAL SOCIETY OF NEPHROLOGY (KDIGO 2012 CLINICAL PRACTICE GUIDELINE). G1,NORMAL OR HIGH: >89 ml/min/1.73 m2 G2,MILDLY DECREASED: 60-89 ml/min/1.73 m2 G3A,MILDLY TO MODERATELY DECREASED: 45-59 ml/min/1.73 m2 G3B,MODERATELY TO SEVERELY DECREASED: 30-44 ml/min/1.73 m2 G4,SEVERELY DECREASED: 15-29 ml/min/1.73 m2 G5,KIDNEY FAILURE: <15 ml/min/1.73 m2 02/13/2025 1:26 PM CDT Ryan Aldana DO LABORATORY Final Re sult [facility] [address] [place] [address], [place] [phone] * LIPID PANEL (02/13/2025 1:26 PM CDT) CHOLESTEROL 144 <200 MG/DL 02/14/2025 10:[address] [facility] TRIGLYCERIDES 67 <150 MG/DL 02/14/2025 10:[address] [facility] HDL 54 >40 MG/DL 02/14/2025 10:[address] [facility] LDL-C 77 <100 MG/DL 02/14/2025 10:[address] [facility] VLDL CALCULATION 13 5 - 28 MG/DL 02/14/2025 10:[address] [facility] CHOL/HDL RATIO 2.7 0.0 - 4.0 02/14/2025 10:[address] [facility] LDL/HDL 1.4 0.41 - 2.13 02/14/2025 10:[address] [facility] NON HDL CHOLESTEROL 90 <140 MG/DL 02/14/2025 10:[address] [facility] 02/13/2025 1:26 PM CDT Ryan Aldana DO LABORATORY Final Re sult [facility] [address] [place] [address], [place] [phone] * CBC W/DIFF AUTOMATED (02/13/2025 1:26 PM CDT) [facility] WBC 7.70 4.00 - 10.80 x10'3/uL 02/13/2025 8:[address] [facility] RBC 4.16 4.10 - 5.40 x10'6/uL 02/13/2025 8:[address] [facility] HGB 12.6 12.0 - 16.0 G/DL 02/13/2025 8:[address] [facility] HCT 37.9 36.0 - 47.0 % 02/13/2025 8:[address] [facility] MCV 91.1 78.0 - 100.0 FL 02/13/2025 8:[address] [facility] MCH 30.3 27.0 - 31.0 PG 02/13/2025 8:[address] [facility] MCHC 33.2 33.0 - 36.0 G/DL 02/13/2025 8:[address] [facility] RDW 12.2 11.5 - 14.5 % 02/13/2025 8:[address] [facility] PLT 331 150 - 350 x10'3/uL 02/13/2025 8:[address] [facility] MPV 9.1 7.4 - 10.4 FL 02/13/2025 8:[address] [facility] DIFFERENTIAL TYPE AUTOMATED DIFFERENTIAL 02/13/2025 8:[address] [facility] [address] [facility] NEUTROPHILS % 72.2 % 02/13/2025 8:[address] [facility] LYMPHOCYTES % 21.2 % 02/13/2025 8:[address] [facility] MONOCYTES % 4.8 % 02/13/2025 8:[address] [facility] EOSINOPHILS % 1.2 % 02/13/2025 8:[address] [facility] BASOPHILS % 0.5 % 02/13/2025 8:[address] [facility] IMMATURE GRANS % 0.1 % 02/13/2025 8:[address] [facility] ABS. NEUTROPHILS 5.56 1.60 - 8.30 x10'3/uL 02/13/2025 8:[address] [facility] ABS. LYMPHOCYTES 1.63 0.80 - 4.70 x10'3/uL 02/13/2025 8:[address] [facility] ABS. MONOCYTES 0.37 0.00 - 1.50 x10'3/uL 02/13/2025 8:[address] [facility] ABS. EOSINOPHILS 0.09 0.00 - 0.40 x10'3/uL 02/13/2025 8:[address] [facility] ABS. BASOPHILS 0.04 0.00 - 0.20 x10'3/uL 02/13/2025 8:[address] [facility] ABS. IMMATURE GRANULOCYTES 0.01 0.00 - 0.03 x10'3/uL 02/13/2025 8:[address] [facility] 02/13/2025 1:26 PM CDT us Ryan Aldana DO LABORATORY Final Re sult [facility] [address] [place] [address], * VITAMIN D, 25 OH (02/13/2025 1:26 PM CDT) VITAMIN D 25 HYDROXY TOTAL S/P/B 33.6 30 - 100 NG/ML 02/14/2025 10:[address] [facility] Comment: DEFICIENT <20 INSUFFICIENT 20-30 SUFFICIENT 30-100 02/13/2025 1:26 PM CDT Ryan Aldana DO LABORATORY Final Re sult [facility] [place] [address] [facility] [address], * XR SHOULDER LT 3V (02/13/2025 12:09 PM CDT) Anatomical Region Laterality Modality Shoulder Radiographic Vonnie ging 02/13/2025 11:4 8 AM CDT Narrative 02/13/2025 12:45 PM CDT [facility] [place] [address] Examination: left shoulder EXAM DATE/TIME: 02/13/2025 11:48 AM REASON FOR EXAM: Fall 3x weeks ago, still in pain COMPARISON: 10/06/2020 TECHNIQUE: AP, Grashey, and scapular Y views were obtained. FINDINGS: No acute fracture or dislocation. Glenohumeral relationship is preserved. No destructive osseous lytic or sclerotic lesions. Left upper lung is clear. No radiopaque foreign bodies. ===== IMPRESSION:===== No acute osseous abnormalities. Referred By: Interpreted By: Kwaku Brantley MD, 02/13/2025 12:43 PM Procedure Note Kwaku Brantley MD - 02/13/2025 [facility] [place] [address] Examination: left shoulder EXAM DATE/TIME: 02/13/2025 11:48 AM REASON FOR EXAM: Fall 3x weeks ago, still in pain COMPARISON: 10/06/2020 TECHNIQUE: AP, Grashey, and scapular Y views were obtained. FINDINGS: No acute fracture or dislocation. Glenohumeral relationship ispreserved. No destructive osseous lytic or sclerotic lesions. Left upperlung is clear. No radiopaque foreign bodies. ===== IMPRESSION:===== No acute osseous abnormalities. Referred By: Interpreted By: Kwaku Brantley MD, 02/13/2025 12:43 PM Ryan Aldana DO GENERAL IMAGING Final Re sult * BONE DENSITY GENERIC (04/26/2023) Anatomical Region Laterality Modality Other 04/26/2023 [facility] Scanned SCANNING Final Resu lt * COLOGUARD (EXACT SCIENCE) (01/23/2023 2:41 PM CDT) COLOGUARD RESULT Negative Negative [facility] [employer] (CLIA #:[id number]) Comment: NEGATIVE TEST RESULT. A negative Cologuard [...] (Gillian Waldron al, N Engl J Med 2014;370(14):3771-3718) The normal value (reference range) for this assay is negative. COLOGUARD RE-SCREENING RECOMMENDATION: Periodic colorectal cancer screening is an important part of preventive healthcare for asymptomatic individuals at average risk for colorectal cancer. Following a negative Cologuard result, the [place] [employer] Society and U.S. Multi-Society Task Force screening guidelines recommend a Cologuard re-screening interval of 3 years. References: [place] [employer] Guideline for Colorectal Cancer Screening: https://www.cancer.org/cancer/eapte-xeecgg-ghqvhv/uvswjscxg-rwscyhshw-auqdbrx/ac s-rec ommendations.html.; Pravin CURRAN, Hilda DOWLING, Cheikh JusticeK, Colorectal Cancer Screening: Recommendations for Physicians and Patients from the U.S. Multi-Society Task Force on Colorectal Cancer Screening , Am J Gastroenterology 2017; 112:0843-1474. TEST DESCRIPTION: Composite algorithmic analysis of stool [...] Martel et al, N Engl J Med 2014;370(14):0585-8606.) Cologuard may produce a false negative or false positive result (no colorectal cancer or precancerous polyp present at colonoscopy follow up). A negative Cologuard test result does not guarantee the absence of CRC or advanced adenoma (pre-cancer). The current Cologuard screening interval is every 3 years. ([place] [employer] Society and U.S. Multi-Society Task Force). Cologuard performance data in a 10,000 patient pivotal study using colonoscopy as the reference method can be accessed at the following location: www.[employer].NJVC/results. Additional description of the Cologuard test process, warnings and precautions can be found at www.[employer]iver[employer] Energyrd.NJVC. STOOL STOOL SPECIMEN / Unknown 01/23/2023 2:41 PM CDT 01/25/2023 9:15 AM CDT Ryan Aldana DO BODY FLUIDS AND STOOLS O RDERABLES Final Result Performing Organization Address City/[facility]/ZIP Co de Phone Number [employer] ([facility]) [address] [place] [address], [employer] (CLIA #:[id number]) [address] [place] [address] * HEPATITIS C ANTIBODY (07/02/2022 1:43 PM TRAFFIC POLICE OFFICER) HEPATITIS C AB NON-REACTI VE NON-REACT PHOEBE 07/05/2022 7:33 PM TRAFFIC POLICE OFFICER [facility] Comment: ANTIBODIES TO HCV NOT DETECTED. DOES NOT EXCLUDE THE POSSIBILITY OF EXPOSURE TO HCV. 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
--- OUTSIDE RECORDS SUMMARY | 2025-04-05 16:00 | XMS_ITS | Encounter Summary ---
Author Organization [facility] Address [facility] [place] [address] Care Team Providers Care Mental Health Tech Name Role Phone Katya Ryan Patterson DO Primary Care Provider + Encounter Details Date Type Department Care Team (Latest Contact Info) Description 04/05/2025 Travel Social History Tobacco Use Types Packs/Day Years Used Date Smoking Tobacco: Never Passive Smoke Exposure: Never Smokeless Tobacco: Never Comments:na Alcohol Use Standard Drinks/Week Comments Never 0 (1 standard drink = 0.6 oz pur e alcohol) [facility] Utilities Answer Date Recorded In the past 12 months has e electric, gas, oil, or water company [...] any time in the past 12 m [facility], were you homeless or living in a jail (including now)? No 06/14/2024 Comments No Sex and Gender Information Value Date Recorded Sex Assigned at Female 11/21/2023 7:23 AM CDT Legal Sex Female 12:45 PM BEEF PLUCK TRIMMER Gender Identity Female 11/21/2023 7:23 AM CDT Sexual Orientation Straight 11/21/2023 7: 23 AM CDT documented as of this encounter Functional Status * Are you deaf or do you have serious difficulty hearing Answer Date of Assessment Author Status No 06/19/2024 5:32 PM Chaz Escalona, RN Active * Are you blind or do you have serious difficulty seeing, even when wearing glasses? Answer Date of Assessment Author Status No 06/19/2024 5:32 PM Chaz Escalona, RN Active * Do you have serious difficulty walking or climbing stairs? Answer Date of Assessment Author Status Yes 06/19/2024 5:32 PM Chaz Escalona, RN Active * Do you have difficulty dressing or bathing? Answer Date of Assessment Author Status No 06/19/2024 5:32 PM BEEF PLUCK TRIMMER Chaz Hinojosa RN Active * Because of a physical, mental, or emotional condition, do you have difficulty doing errands alone such as visiting a doctor's office or shopping? Answer Date of Assessment Author Status No 06/19/2024 5:32 PM BEEF PLUCK TRIMMER Chaz Hinojosa RN Active documented as of this encounter Mental Status * Because of a physical, mental, or emotional condition, do you have serious difficulty concentrating, remembering, or making decisions? Answer Entry Date Author Status Yes 06/19/2024 5:32 PM BEEF PLUCK TRIMMER Chaz Hinojosa RN Active documented in this encounter Plan of Treatment Upcoming Encounters Date Type Department Care Team (Late st Contact Info) Description 04/16/2025 11:40 AM BEEF PLUCK TRIMMER Office Visit [facility] Family & Internal Medicine - [address] [phone] Ryan Aldana DO [address] [place] [address] 05/03/2025 9:00 AM BEEF PLUCK TRIMMER Office Visit [facility] [phone] Chris Fuller MD [address] [place] [phone] documented as of this encounter Visit Diagnoses Not on filedocumented in this encounter Additional Health Concerns Assessment Noted Time PHQ-9 Depression Total Score: 0 05/31/19 20 11:03 AM BEEF PLUCK TRIMMER documented as of this encounter Care Teams Mental Health Tech Relationship Specialty Start Date End Date Ryan Aldana DO [address] [place] [address] PCP - General FAMILY PRACTICE 05/31/19 documented as of this encounter
--- OUTSIDE RECORDS SUMMARY | 2025-04-05 16:00 | XMS_ITS | Encounter Summary ---
Author Organization [facility] Address [facility] [place] [address] Care Team Providers Care Retail Coverage Merchandiser Lead Name Role Phone Ryan Aldana DO Primary Care Provider + Tisha Hernandez RN Unavailable [phone] Encounter Details Date Type Department Care Team (Late st Contact Info) Description 02/19/2025 Results Follow-Up [facility] Family & Internal Medicine [facility] [address] [place] [address] Ryan Aldana DO [address] [place], [place] [id number] XR SHOULDER LT 3V, VITAMIN D, 25 OH, LIPID PANEL, Additional followed-up results: 3 Social History Tobacco Use Types Packs/Day Years Used Date Smoking Tobacco: Never Passive Smoke Exposure: Never Smokeless Tobacco: Never Comments:na Alcohol Use Standard Drinks/Week Comments Never 0 (1 standard drink = 0.6 oz pur e alcohol) [facility] Utilities Answer Date Recorded In the past 12 months has e [employer], gas, oil, or water [employer] threatened to shut off services in your [...] any time in the past 12 m [facility], were you homeless or living in a penitentiary (including now)? No 06/14/2024 Comments No Sex and Gender Information Value Date Recorded Sex Assigned at Female 11/21/2023 7:23 AM CDT Legal Sex Female 12:45 PM FLY FRAME TENDER Gender Identity Female 11/21/2023 7:23 AM [...] Escalona RN Active documented in this encounter Plan of Treatment Upcoming Encounters Date Type Department Care Team (Late st Contact Info) Description 04/16/2025 11:40 AM FLY FRAME TENDER Office Visit [facility] Family & Internal Medicine - [address] [phone] Ryan Aldana DO [address] [place] [address] 05/03/2025 9:00 AM FLY FRAME TENDER Office Visit [facility] [phone] Chris Fuller MD [address] [place] [phone] documented as of this encounter Visit Diagnoses Not on filedocumented in this encounter Additional Health Concerns Assessment Noted Time PHQ-9 Depression Total Score: 0 05/31/19 20 11:03 AM FLY FRAME TENDER documented as of this encounter Care Teams Retail Coverage Merchandiser Lead Relationship Specialty Start Date End Date Ryan Aldana DO [address] [place] [address] PCP - General FAMILY PRACTICE 05/31/19 Tisha Hernandez, RN [address] [address] Swimming Pool Cleaner (Ambulatory) REGISTERED NURSE 12/25/24 documented as of this encounter
--- OUTSIDE RECORDS SUMMARY | 2025-04-05 16:00 | XMS_ITS | Encounter Summary ---
Author Organization [facility] Address [facility] [place] [address] Care Team Providers Care Driller Operator Name Role Phone Ryan Aldana DO Primary Care Provider + Reason for Visit * Reason Onset Date Comments Advice 04/05/2025 Encounter Details Date Type Department Care Team (Late st Contact Info) Description 04/05/2025 Telephone [facility] Family & Internal Medicine [facility] [address] [place] [address] Ryan Aldana DO [address] [place] [address] Advice Social History Tobacco Use Types Packs/Day Years Used Date Smoking Tobacco: Never Passive Smoke Exposure: Never Smokeless Tobacco: Never Comments:na Alcohol Use Standard Drinks/Week Comments Never 0 (1 standard drink = 0.6 oz pur e alcohol) [facility] Utilities Answer Date Recorded In the past 12 months has [facility] [employer], gas, oil, or water [employer] threatened to shut off services in your [...] time in the past 12 m [facility], were you homeless or living in a [facility] (including now)? No 06/14/2024 Comments No Sex and Gender Information Value Date Recorded Sex Assigned at Female 11/21/2023 7:23 AM CDT Legal Sex Female 12:45 PM BANKING TEACHER Gender Identity Female 11/21/2023 7:23 AM [...] documented in this encounter Progress Notes * Shalonda Norwood MA - 04/05/2025 3:23 PM CST Pt's daughter informed and v/u of recommendation. She is in [place] next to the and will take pt to [facility] for evaluation immediately. Called and spoke to Rn at [facility] to give report of pt's anticipated arrival. Faxed snapshot and last OV notes to ER at [phone]. ING TEACHER * Ryan Aldana DO - 04/05/2025 3:10 PM CST Stroke symptoms are typically one sided weakness, facial drooping, and changes in voice, although this is not an exhaustive list. Dizziness and mental status changes can be associated with acute neurological symptoms as well as severe UTI's. Given her history, she likely needs to go to ER given ouroffice is closed today and for hte weekend. ING TEACHER * Teresa Seaman - 04/05/2025 2:38 PM CST Patient sister called in stating patient has been acting strange states did not go to work yesterday, when sister picked her up for Physical therapy and patient was dizzy needed support to stand. Patients sister was concerned due to her stroke history and is wondering what sx she needs to look out for. Please advise. ING TEACHER documented in this encounter Plan of Treatment Upcoming Encounters Date Type Department Care Team (Late st Contact Info) Description 04/16/2025 11:40 AM BANKING TEACHER Office Visit [facility] Family & Internal Medicine - [address] [phone] Ryan Aldana DO [address] [place] [address] 05/03/2025 9:00 AM BANKING TEACHER Office Visit [facility] [phone] Chris Fuller MD [address] [place] [address] [place] [phone] documented as of this encounter Visit Diagnoses Not on filedocumented in this encounter Additional Health Concerns Assessment Noted Time PHQ-9 Depression Total Score: 0 05/31/19 20 11:03 AM BANKING TEACHER documented as of this encounter Care Teams Driller Operator Relationship Specialty Start Date End Date Ryan Aldana DO [address] [place] [address] PCP - General FAMILY PRACTICE 05/31/19 documented as of this encounter
--- OUTSIDE RECORDS SUMMARY | 2025-04-05 16:00 | XMS_ITS | Encounter Summary ---
Author Organization [facility] Address [facility] [place] [address] Care Team Providers Care Continuous Improvement Director Name Role Phone Ryan Adlana DO Primary Care Provider + Tati Mathews RN Unavailable [phone] Tisha Hernandez RN Unavailable [phone] Encounter Details Date Type Department Care Team (Late st Contact Info) Description 04/28/2023 VidBidt Message Enc [facility] Medical Group Family & Internal Medicine [facility] [address] [place] [address] Ryan Aldana DO [address] [place] [address] Mammogram Results Social History Tobacco [...] AM CDT Legal Sex Female 12:45 PM LIBRARY HELPER Gender Identity Female 11/21/2023 7:23 AM CDT Sexual Orientation Straight 11/21/2023 7: 23 AM CDT documented as of this encounter Plan of Treatment Upcoming Encounters Date Type Department Care Team (Late st Contact Info) Description 04/16/2025 11:40 AM LIBRARY HELPER Office Visit [facility] Family & Internal Medicine - [address] [phone] Ryan Aldana DO [address] [place] [address] 05/03/2025 9:00 AM LIBRARY HELPER Office Visit [facility]-[address] [phone] Chris Fuller MD [address] [place] [phone] documented as of this encounter Visit Diagnoses Not on filedocumented in this encounter Additional Health Concerns Infection Onset Date Last Indicated Resolved Time COVID-19 Rule Out 06/13/2024 06/13/2024 06/13/2024 9:10 PM LIBRARY HELPER COVID-19 Rule Out 06/16/2024 06/16/2024 06/16/2024 9:49 PM LIBRARY HELPER Assessment Noted Time PHQ-9 Depression Total Score: 0 05/31/19 20 11:03 AM LIBRARY HELPER documented as of this encounter Care Teams Continuous Improvement Director Relationship Specialty Start Date End Date Ryan Aldana DO [address] [place] [address] PCP - General FAMILY PRACTICE 05/31/19 Tati Mathews RN [address] [place], [place] [phone] Lead Network Engineer (Ambulatory) REGISTERED NURSE 06/15/2402/23 Tisha Hernandez RN [address] [address] Lead Network Engineer (Ambulatory) REGISTERED NURSE 12/25/24 documented as of this encounter
--- OUTSIDE RECORDS SUMMARY | 2025-04-05 16:00 | XMS_ITS | Encounter Summary ---
Author Organization [facility] Address [facility] [place] [address] Care Team Providers Care Lamp Shades Supervisor Name Role Phone Ryan Aldana DO Primary Care Provider + Tati Mathews RN Unavailable [phone] Tisha Hernandez RN Unavailable [phone] Encounter Details Date Type Department Care Team (Late st Contact Info) Description 05/03/2023 MyCGiveSurancet Message Enc [facility] Family & Internal Medicine [facility] [address] [place] [address] Ryan Aldana DO [address] [place] [address] DEXA Results Social History Tobacco [...] AM CDT Legal Sex Female 12:45 PM WAFER LINE WORKER Gender Identity Female 11/21/2023 7:23 AM CDT Sexual Orientation Straight 11/21/2023 7: 23 AM CDT documented as of this encounter Plan of Treatment Upcoming Encounters Date Type Department Care Team (Late st Contact Info) Description 04/16/2025 11:40 AM WAFER LINE WORKER Office Visit [facility] Family & Internal Medicine - [address] [phone] Ryan Aldana DO [address] [place] [address] 05/03/2025 9:00 AM WAFER LINE WORKER Office Visit [facility]-[address] [phone] Chris Fuller MD [address] [place] [phone] documented as of this encounter Visit Diagnoses Not on filedocumented in this encounter Additional Health Concerns Infection Onset Date Last Indicated Resolved Time COVID-19 Rule Out 06/13/2024 06/13/2024 06/13/2024 9:10 PM WAFER LINE WORKER COVID-19 Rule Out 06/16/2024 06/16/2024 06/16/2024 9:49 PM WAFER LINE WORKER Assessment Noted Time PHQ-9 Depression Total Score: 0 05/31/19 20 11:03 AM WAFER LINE WORKER documented as of this encounter Care Teams Lamp Shades Supervisor Relationship Specialty Start Date End Date Ryan Aldana DO [address] [place] [address] PCP - General FAMILY PRACTICE 05/31/19 Tati Mathews RN [address] [place], [place] [phone] Asbestos Microscopist (Ambulatory) REGISTERED NURSE 06/15/2402/23 Tisha Hernandez RN [address] [address] Asbestos Microscopist (Ambulatory) REGISTERED NURSE 12/25/24 documented as of this encounter
[2025-04-05 16:10] VITALS: BP 152/53; PULSE 55; RESP 19; TEMP 36.4; O2SAT 99
--- NOTE | 2025-04-05 16:36 | ECG_ITS ---
Test Date: 2025-04-05 16:46:34 Measurements Intervals Margie Rate: 54 P: 59 OR: 159 QRS: 62 QRSD: 94 T: 46 QT: 458 QTc: 437 Interpretive Statements SINUS BRADYCARDIA EARLY PRECORDIAL R/S TRANSITION MINIMAL Q WAVES- ANTEROLAT/INF LEADS BASELINE ARTIFACT- I, II, III, AVR, AVL, AVF BORDERLINE ECG No previous ECG available for comparison Electronically Signed On 04-05-2025 20:25:18 COMMUNITY ARTIST by Toni Ambrose D.O.
[2025-04-05 17:10] LABS: Hematocrit 33.8 % (37.0-47.0); Hemoglobin 11.1 g/dL (12.0-15.0); Immature Granulocyte Percent A 0.2 % (0-0.5); Lymphocytes Absolute Auto 1.71 K/mm3 (0.9-3.2); Mean Corpuscular HGB Conc 32.8 g/dl (32-36); Mean Corpuscular Hemoglobin 30.1 pg (26-34); Mean Corpuscular Volume 91.6 fl (80-100); Nucleated Red Blood Cells Absolute Auto 0.000 K/mm3 (0.0-0.012); Nucleated Red Blood Cells Perc 0.0 % (0.0-0.2); Platelet Count Result 216 k/mm3 (150-375); Red Blood Count 3.69 M/mm3 (4.2-5.4); White Blood Count 6.0 K/mm3 (4.5-10.0)
[2025-04-05 17:21] LABS: INR 1.1; Prothrombin Time 14.5 Seconds (11.1-14.7)
[2025-04-05 17:28] LABS: Alanine Aminotransferase 17 U/L (6-35); Albumin Level 4.2 g/dL (3.5-5.1); Alkaline Phosphatase 60 U/L (38-126); Anion Gap 6 mmol/L (4-12); Aspartate Amino Transferase 38 U/L (14-36); Bilirubin,Total 0.6 mg/dL (0.2-1.3); Blood Urea Nitrogen 16 mg/dL (7-17); Calcium 9.1 mg/dL (8.4-10.2); Carbon Dioxide 24 mmol/L (22-30); Chloride 105 mmol/L (98-107); Estimated Glomerular Filt Rate > 60; Glucose 85 mg/dL (65-110); Potassium 3.8 mmol/L (3.4-5.0); Sodium 135 mmol/L (137-145); Total Protein 7.2 g/dL (6.3-8.2)
[2025-04-05 17:35] LABS: Troponin I < 0.012 ng/mL (0.000-0.034)
[2025-04-05 17:41] VITALS: BP 157/67; PULSE 57; RESP 17; O2SAT 100
[2025-04-05 17:58] LABS: Add Urine Microscopic? NO; Appearance Urine Clear (Clear); Glucose Urine UA Negative (Negative); Leukocyte Esterase Ur Negative LEU/UL (Negative); Nitrate Urine Negative (Negative); Specific Grav Ur 1.005 (1.001-1.035)
--- NOTE | 2025-04-05 18:28 | ED_ITS ---
HPI - Dizziness General Chief Complaint: Dizziness Stated Complaint: altered mental Time Seen by Provider: 04/05/25 16:20 Source: family Mode of arrival: wheelchair Limitations: clinical condition History of Present Illness HPI Narrative: 74 a year old with a history of intellectual disability, TIA was brought in by family with the complaints of altered mental status, dizziness since this morning. Concerned about possible TIA or urinary tract infection. Not much of history can be obtained from the patient. Onset (ago): day(s) (1) Timing: gradual onset Severity: mild Exacerbating factors: nothing Related Data Allergies Allergy/AdvReac Type Severity Reaction Status Date / Time olanzapine Allergy Anaphylaxis Verified 04/05/25 16:17 Review of Systems 2 Review of Systems: ROS unobtainable: Yes unobtainable due to medical condition Exam 2 Narrative: GENERAL: Well-appearing, well-nourished, and in no acute distress. HEAD: Normocephalic, atraumatic. EYES: PERRLA and EOMI. ENT: Nares clear, no rhinorrhea or epistaxis. Mucous membranes moist. NECK: Supple. CHEST: Clear to auscultation. No respiratory distress. HEART: Regular rate and rhythm. No murmur heard. Normal peripheral pulses. ABDOMEN: Soft, nontender, nondistended, normal active bowel sounds. EXTREMITIES: Normal range of motion. No edema. SKIN: Warm, dry, no rash. NEURO: No focal deficits. Alert and oriented x1 PSYCH: Normal mood and affect. Course Course Emergency Course: Patient comfortably resting informed of family about her lab work, CT findings. They would prefer to take her home. I advised her to continue home medication. Follow up with her primary doctor. Vital Signs Vital signs: Vital Signs Temperature 36.4 C 04/05/25 16:10 Pulse Rate 55 L 04/05/25 16:10 Respiratory Rate 19 04/05/25 16:10 Blood Pressure 152/53 H 04/05/25 16:10 Pulse Oximetry 99 04/05/25 16:10 Oxygen Delivery Room Air 04/05/25 16:10 Temperature 36.4 C 04/05/25 16:10 Pulse Rate 57 L 04/05/25 17:41 Respiratory Rate 17 04/05/25 17:41 Blood Pressure 157/67 H 04/05/25 17:41 Pulse Oximetry 100 04/05/25 17:41 Oxygen Delivery Room Air 04/05/25 16:10 [facility] Narrative Medical decision making narrative: 74-year-old with a history of intellectual disability, TIA was brought in by family with the altered mental status, dizziness exam is unremarkable. will do CT of the head and lab work. Differential Diagnosis Differential Diagnosis: AMS, TIA, UTI. Lab Data [facility] Lab Attestation statement: I personally reviewed the patient's lab results. 04/05/25 17:01 04/05/25 17:01 Labs: Lab Results 04/05/25 04/05/25 Range/Units 17:01 17:42 WBC 6.0 (4.5-10.0) K/mm3 RBC 3.69 L (4.2-5.4) M/mm3 Hgb 11.1 L (12.0-15.0) g/dL Hct 33.8 L (37.0-47.0) % MCV 91.6 (80-100) fl MCH 30.1 (26-34) pg MCHC 32.8 (32-36) g/dl RDW 12.6 (11.5-14.5) % Plt Count 216 (150-375) k/mm3 MPV 9.2 (7.4-10.4) fl Immature Gran % (Auto) 0.2 (0-0.5) % Neut % (Auto) 58.1 (45.5-73.1) % Lymph % (Auto) 28.6 (18.3-44.2) % [place] % (Auto) 9.9 H (2.6-8.5) % Eos % (Auto) 2.7 (0-4.4) % Baso % (Auto) 0.5 (0.2-1.2) % Lymph # (Auto) 1.71 (0.9-3.2) K/mm3 [place] # (Auto) 0.6 (0.1-0.6) K/mm3 Eos # (Auto) 0.2 (0-0.3) K/mm3 Baso # (Auto) 0.0 (0.0-0.1) K/mm3 Abs Immat Gran (auto) 0.01 (0.00-0.031) K/mm3 Absolute Neuts (auto) 3.5 (1.3-6.7) K/mm3 Absolute Nucleated RBC 0.000 (0.0-0.012) K/mm3 Nucleated RBC % 0.0 (0.0-0.2) % PT 14.5 (11.1-14.7) Seconds INR 1.1 Sodium 135 L (137-145) mmol/L Potassium 3.8 (3.4-5.0) mmol/L Chloride 105 (98-107) mmol/L Carbon Dioxide 24 (22-30) mmol/L Anion Gap 6 (4-12) mmol/L BUN 16 (7-17) mg/dL Creatinine 0.82 (0.7-1.0) mg/dL Estim Creat Clear Calc Not Reportable Estimated GFR > 60 (59 - ) Glucose 85 (65-110) mg/dL Calcium 9.1 (8.4-10.2) mg/dL Total Bilirubin 0.6 (0.2-1.3) mg/dL AST 38 H (14-36) U/L ALT 17 (6-35) U/L Alkaline Phosphatase 60 (38-126) U/L Troponin I < 0.012 (0.000-0.034) ng/mL Total Protein 7.2 (6.3-8.2) g/dL Albumin 4.2 (3.5-5.1) g/dL Urine Color Yellow (Yellow) Urine Appearance Clear (Clear) Urine pH 6.0 (5.0-9.0) Ur Specific [place] 1.005 (1.001-1.035) Urine Protein Negative (Negative) mg/dL Urine Glucose (UA) Negative (Negative) mg/dL Urine Ketones Negative (Negative) mg/dL Ur Blood (Man) Negative (Negative) Urine Nitrate Negative (Negative) Urine Bilirubin Negative (Negative) Urine Urobilinogen 0.2 (<2.0) mg/dL Leukocyte Esterase Rfl Negative (Negative) ROBIN/UL Imaging Data Radiologist's impression: ITS Impressions Chest X-Ray 04/05/25 16:46 IMPRESSION: 1: NO ACUTE CARDIOPULMONARY DISEASE. Head CT 04/05/25 17:09 Impression: 1.No acute intracranial abnormality. ECG Data EKG #1: ECG completion date: 04/05/25 ECG completion time: 16:46 bradycardia (54), no ectopy, no ST changes and normal QRS Discharge Plan Discharge Clinical Impression: Dizziness Patient Disposition: Home Condition: Stable Instructions: Dizziness (ED) Additional Instructions: continue home medications, follow with your doctor. Patient Language: Uzbek Follow-up/Referrals: Katya,DO Ryan [Primary Care Provider] Time of Disposition: 18:34
== END 2025-04-05 18:58 | disposition home or self-care (01) ==
PROVIDERS: Emergency Provider Family Medicine; PCP Student in an Organized Health Care Education/Training Program
DX: R42 Dizziness and giddiness (principal); F79 Unspecified intellectual disabilities; R00.1 Bradycardia, unspecified
CPT/HCPCS: 36415; 70450; 71045; 80053; 81003; 84484; 85025; 85610; 93005; 99284